=== PATIENT | male | born 1955 | race Caucasian/White ===

== ENCOUNTER 2022-05-17 23:15 | Inpatient (IN) | payer MEDICARE, SELFPAY ==
[2022-05-17 23:34] VITALS: BP 146/98; PULSE 102; RESP 16; TEMP 36.8; O2SAT 95
--- NOTE | 2022-05-17 23:41 | XRR_ITS ---
PROCEDURE INFORMATION: Exam: XR Right Foot Exam date and time: 05/18/2022 12:19 AM Age: 66 years old Clinical indication: Injury or trauma; Other: Deep lac to right heel; Wound; Without foreign body; Additional info: Open wound TECHNIQUE: Imaging protocol: Radiologic exam of the Right foot. Views: 1 or 2 views. COMPARISON: No relevant prior studies available. FINDINGS: Bones/joints: There is probable at least partial disruption of the Achilles tendon. Soft tissues: There is a prominent soft tissue laceration seen within the heel posteriorly. The laceration extends to the surface of the right os calcis. Calcific densities are seen in the soft tissues overlying the dorsal aspect of the os calcis. XR/XR foot RT 2V [id number] IMPRESSION: 1. A deep laceration extends to the posterior surface of the right os calcis. 2. There are calcific densities seen in the soft tissues the dorsal surface of the os calcis. 3. An injury to the insertion of the Achilles tendon cannot be excluded.
[2022-05-18] VITALS (14 sets, daily range): BP systolic 89–141; BP diastolic 58–84; PULSE 59–101; RESP 12–19; TEMP 36.4–37.5; O2SAT 96–100
[2022-05-18 00:11] LABS: Basophils # 0.1 10^3/uL (0.0-0.1); Basophils % 0.5 %; Eosinophils # 0.1 10^3/uL (0.0-0.8); Eosinophils % 0.7 %; Hematocrit 29.6 % (42.0-52.0); Hemoglobin 9.4 g/dL (11.7-16.6); Lymphocytes # 1.5 10^3/uL (0.8-4.8); Lymphocytes % 13.3 %; Mean Corpuscular HGB Conc 31.8 g/dL (30.0-36.0); Mean Corpuscular Hemoglobin 28.2 pg (28.0-34.0); Mean Corpuscular Volume 88.9 fl (80-94); Mean Platelet Volume 10.7 fL (7.4-10.4); Monocytes # 1.3 10^3/uL (0.2-0.9); Monocytes % 11.7 %; Neutrophils # 8.29 10^3/uL (1.8-7.7); Neutrophils % 73.4 %; Nucleated Red Blood Cells % 0 %; Platelet Count 272 10^3/cmm (130-400); Red Blood Count 3.33 10^6/uL (4.1-5.3); Red Cell Distribution Width 16.6 % (12.1-15.1); White Blood Count 11.3 10^3/uL (4.0-10.0)
[2022-05-18 00:26] LABS: INR 1.09 (0.8-1.2)
[2022-05-18 00:27] LABS: Partial Thromboplastin Time 24.9 SECONDS (23.9-36.7)
[2022-05-18 00:30] LABS: Lactate (Lactic Acid level) 3.3 mmol/L (0.5-2.2)
[2022-05-18 00:32] LABS: Alanine Aminotransferase 16 U/L (0-41); Albumin Level 2.7 g/dL (3.5-5.2); Alcohol Level 92 mg/dL (0-10); Alkaline Phosphatase 92 U/L (40-130); Anion Gap 16.6 (5-19); Aspartate Amino Transferase 22 U/L (0-40); Blood Urea Nitrogen 3 mg/dL (8-23); C Reactive Protein 3.4 mg/L (0.0-4.9); Calcium 8.4 mg/dL (8.5-10.5); Carbon Dioxide 19 mmol/L (22-29); Chloride 92 mmol/L (98-107); Glomerular Filtration Rate 166.4 mL/min (90-130); Glucose 94 mg/dL (65-115); Osmolality Calculated 254 mOsm/kg (285-295); Potassium 3.6 mmol/L (3.5-5.1); Sodium 124 mmol/L (136-145); Total Bilirubin 0.5 mg/dL (0.15-1.2); Total Protein 6.7 g/dL (6.6-8.7)
--- NOTE | 2022-05-18 01:58 | PM.HP ---
Providers/Chief Complaint Chief Complaint: Lower Extremity Injury History of Present Illness Jem Coffey is a 66 year old male with past medical history of hypertension, alcohol use, came in with chief complaint of foot pain. Started a month back, after he hurt his right foot while closing the recliner, he says that the foot got caught in it.After that he started developing swelling and pain which has since then significantly worsened, yesterday he was at urgent care clinic and was discharged from there on oral antibiotics, and wound care follow-up. Came to the ER today with worsening symptoms. Has denied any fever chills. Pertinent imaging studies: X-ray right foot:A deep laceration extends to the posterior surface of the right os calcis. There are calcific densities seen in the soft tissues the dorsal surface of the os calcis. An injury to the insertion of the Achilles tendon cannot be excluded. ? Review of Systems General: Reports: 10 or more systems reviewed and unremarkable except in HPI and below Card: Denies: palpitations, edema, swelling of feet/ankles, dyspnea on exertion, orthopnea or leg pain with exertion Resp: Denies: dyspnea, productive cough, wheezing or pain on inspiration GI: Denies: abdominal pain, nausea, vomiting, diarrhea or constipation : Denies: flank pain or difficulty urinating Musc: Reports: extremity pain; Denies: back pain or extremity swelling Neuro: Reports: difficulty walking; Denies: headache(s) or confusion Medications/Allergies Home Medications Medication Instructions Recorded Confirmed Last Taken Type levofloxacin 750 mg tablet 750 mg PO DAILY 10 days #10 tabs 05/16/22 05/16/22 Unknown Rx lisinopril 5 mg tablet 5 mg PO DAILY 05/16/22 05/16/22 Unknown History lovastatin 10 mg tablet 10 mg PO DAILY 05/16/22 05/16/22 Unknown History metoprolol tartrate 25 mg tablet 25 mg PO DAILY 05/16/22 05/16/22 Unknown History Allergies Allergy/AdvReac Type Severity Reaction Status Date / Time Sulfa (Sulfonamide Allergy Intermediate Unknown Verified 05/16/22 13:26 Antibiotics) PFSH Acute PFSH: Social History Smoking and tobacco status: current every day smoker Vitals/I&O/Wt Last Vital Signs Temp 98.2 F 05/17/22 23:34 Pulse 102 H 05/17/22 23:34 Resp 16 05/17/22 23:34 BP 119/84 05/18/22 00:00 Pulse Ox 95 05/17/22 23:34 O2 Del Method 05/17/22 23:34 Physical Exam Resp: COMMON NORMALS: normal respiratory effort, No retractions, No use of accessory muscles and clear to auscultation bilaterally EFFORT & INSPECTION: Yes symmetric chest movement AUSCULTATION: clear to auscultation bilaterally Cardio: COMMON NORMALS: regular rate, regular rhythm, S1 normal heart sound present, S2 normal heart sound present, No gallops present (Cardio), No murmurs present (Cardio), No rub (Cardio) and Peripheral pulses 2+ throughout RATE: regular rate RHYTHM: regular rhythm HEART SOUNDS: S1 normal heart sound present and S2 normal heart sound present PERIPHERAL PULSES: Peripheral pulses 2+ throughout GI: COMMON NORMALS: Normal to inspection, nondistended, normoactive bowel sounds present, Soft to palpation, non-tender, No hepatosplenomegaly present and no masses AUSCULTATION: Yes normoactive bowel sounds PALPATION: Yes Soft to palpation and Yes No hepatosplenomegaly present RECTAL EXAM: Yes deferred Extremity: COMMON NORMALS: no clubbing, cyanosis or edema and no pedal edema NARRATIVE EXTREMITY EXAM: rt foot wound Neuro: COMMON NORMALS: patient oriented x3 Data : 05/17/22 23:55 05/17/22 23:55 A&P Assessment and plan (1) Wound of right foot: (2) Hypertension: Plan 66 year old male with past medical history of hypertension, alcohol use, came in with chief complaint of foot pain Started a month back, after he hurt his right foot while closing the recliner, he says that the foot got caught in it. After that he started developing swelling and pain which has since then significantly worsened. Assessment: Right foot wound Hypertension Plan: Follow blood culture ESR CRP Currently on broad-spectrum antibiotics (Vanco and Zosyn) Pain control Orthopedic has been consulted by ER, currently n.p.o. for possible intervention. Attestations Medical Necessity Statement*: Patient needs to be in hospital for management right foot wound, need for IV antibiotics. Anticipated length of stay greater than 2 midnights. Time Spent in Patient Care: Greater than 35 minutes (>than 50% of time spent in counselling and/or direct pt care on unit). Coding Level of Care Code Acute [employer] Feeder for Surjitg Fwd Exam Detailed Diagnoses Wound of right foot S91.301A Hypertension I10
[2022-05-18 02:28] LABS: C Reactive Protein 3.4 mg/L (0.0-4.9)
[2022-05-18 02:32] LABS: Erythrocyte Sedimentation Rate 30 mm/hr (0-10)
[2022-05-18] MEDS: vancomycin 1,250 MG/250 ML PIGGYBACK 250 MG IV ×3 (02:47→18:00)
--- NOTE | 2022-05-18 04:13 | W.ED.EXTPRO ---
HPI - Extremity Problem General: Chief complaint: Extremity Injury, Lower Stated complaint: Lower Extremity Injury Source: patient and EMS History of Present Illness: 66-year-old male gentleman who states that he cut his right heel on a recliner closing mechanism last week. The laceration remained open. He became worried about it, so yesterday he was seen in urgent care. And wound care appointment was made for him in 2 days. He was prescribed antibiotics, as they cannot close the wound due to the nature of it being open for a week. He says that he was on his feet quite a bit today, going to get his antibiotic prescription filled, etc. The wound suddenly opened more while weightbearing. It became more painful. It began to bleed. It bled so much, that he had clot covering the mat in the floorboard of his truck that was significantly thick. Ambulance was called. He presents with continued oozing of the wound. He is intoxicated as well. MD Complaint: extremity pain, extremity swelling and other Onset (ago): hour(s) Pain Consistency: constant Location: right and other (Foot) Quality: constant Radiation: none Relieving factors: immobilization Exacerbating factors: nothing Associated symptoms: Deny chest pain or fever(s) Review of Systems Const: Denies: fever(s) Card: Denies: chest pain or palpitations Resp: Denies: dyspnea GI: Reports: nausea; Denies: abdominal pain or vomiting Musc: Reports: extremity pain; Denies: neck pain Skin/Breast: Reports: other [facility] ED PFSH: Social History Smoking and tobacco status: current every day smoker Physical Exam Const: COMMON NORMALS: alert GENERAL APPEARANCE: cooperative and frail appearing HENMT: COMMON NORMALS: normocephalic, atraumatic and Normal external nose present HEAD & SCALP: normocephalic and atraumatic FACE & SINUS: normal facial exam and face symmetric NOSE: Normal external nose present Eye: COMMON NORMALS: Equal, round and reactive pupils present and EOMs intact bilaterally PUPIL: Yes Equal, round and reactive pupils present Neck/C-Spine: COMMON NORMALS: full ROM GENERAL: Yes trachea midline Chest: CHEST: Yes Symmetrical chest wall rise Resp: COMMON NORMALS: normal respiratory effort, No use of accessory muscles and clear to auscultation bilaterally AUSCULTATION: clear to auscultation bilaterally Cardio: COMMON NORMALS: regular rate and regular rhythm RATE: regular rate RHYTHM: regular rhythm GI: COMMON NORMALS: Normal to inspection, nondistended, normoactive bowel sounds present Extremity: NARRATIVE EXTREMITY EXAM: Examination of the right lower extremity reveals an open wound over the right hindfoot/Achilles insertional area. There is clot in the wound. It continues to ooze blood. There appears to be exposed tendon present. Encinas test is negative. Capillary refill appears intact. Neuro: TA COMA SCALE: document GCS findings Ta coma scale eye opening: Spontaneous Ta coma scale verbal response: Orientated [place] coma scale motor response: Obey commands Ta coma scale total score: 15 SENSORIUM/ORIENTATION: Yes alert Psych: COMMON NORMALS: cooperative SPEECH: Yes slurred Course Vital Signs: Vital signs: Vital Signs Temperature 98.2 F 05/17/22 23:34 Pulse Rate 100 05/18/22 03:57 Respiratory Rate 16 05/17/22 23:34 Blood Pressure 119/84 05/18/22 00:00 Pulse Oximetry 96 05/18/22 03:57 Oxygen Delivery Me thod 05/18/22 03:57 MDM - Extremity (Nontraumatic) Medical Decision Making This patient essentially has an avulsion of the calcaneus at the Achilles insertion that is an open wound at this point. This patient has had significant bleeding, with a current hemoglobin of 9.4. He is hyponatremic as well. He is mildly intoxicated. He has a history of anticoagulation, although type is not clear. Consulted with orthopedics. Tentative plan is to clean wound which she has been done. Control bleeding which has been done. The wound is washed copiously with saline and a bit of peroxide packed with a wet-to-dry dressing, placed in a posterior splint in equinus, and reevaluate later in the morning. Will likely need washout surgery with potential Achilles repair at that point. He will be made NPO. Hospitalist is aware and has seen the patient in the ER. Orthopedics will see later this morning Lab Data : 05/17/22 23:55 05/17/22 23:55 Radiology Impressions Foot X-Ray 05/17/22 23:41 IMPRESSION: 1. A deep laceration extends to the posterior surface of the right os calcis. 2. There are calcific densities seen in the soft tissues the dorsal surface of the os calcis. 3. An injury to the insertion of the Achilles tendon cannot be excluded. Laboratory Results WBC 11.3 10^3/uL (4.0-10.0) H 05/17/22 23:55 RBC 3.33 10^6/uL (4.1-5.3) L 05/17/22 23:55 Hgb 9.4 g/dL (11.7-16.6) L 05/17/22 23:55 Hct 29.6 % (42.0-52.0) L 05/17/22 23:55 MCV 88.9 fl (80-94) 05/17/22 23:55 MCH 28.2 pg (28.0-34.0) 05/17/22 23:55 MCHC 31.8 g/dL (30.0-36.0) 05/17/22 23:55 RDW 16.6 % (12.1-15.1) H 05/17/22 23:55 Plt Count 272 10^3/cmm (130-400) 05/17/22 23:55 MPV 10.7 fL (7.4-10.4) H 05/17/22 23:55 Neut % (Auto) 73.4 % 05/17/22 23:55 Lymph % (Auto) 13.3 % 05/17/22 23:55 [place] % (Auto) 11.7 % 05/17/22 23:55 Eos % (Auto) 0.7 % 05/17/22 23:55 Baso % (Auto) 0.5 % 05/17/22 23:55 Neut # (Auto) 8.29 10^3/uL (1.8-7.7) H 05/17/22 23:55 Lymph # (Auto) 1.5 10^3/uL (0.8-4.8) 05/17/22 23:55 [place] # (Auto) 1.3 10^3/uL (0.2-0.9) H 05/17/22 23:55 Eos # (Auto) 0.1 10^3/uL (0.0-0.8) 05/17/22 23:55 Baso # (Auto) 0.1 10^3/uL (0.0-0.1) 05/17/22 23:55 Nucleated RBC % (auto) 0 % 05/17/22 23:55 Nucleated RBCs # 0.0 /100WBC 05/17/22 23:55 ESR 30 mm/hr (0-10) H 05/17/22 23:50 PT 14.40 SECONDS (12.1-14.9) 05/17/22 23:55 INR 1.09 (0.8-1.2) 05/17/22 23:55 APTT 24.9 SECONDS (23.9-36.7) 05/17/22 23:55 Sodium 124 mmol/L (136-145) L 05/17/22 23:55 Potassium 3.6 mmol/L (3.5-5.1) 05/17/22 23:55 Chloride 92 mmol/L (98-107) L 05/17/22 23:55 Carbon Dioxide 19 mmol/L (22-29) L 05/17/22 23:55 Anion Gap 16.6 (5-19) 05/17/22 23:55 BUN 3 mg/dL (8-23) L 05/17/22 23:55 Creatinine 0.5 mg/dL (0.7-1.2) L 05/17/22 23:55 GFR Calculation 166.4 mL/min (90-130) H 05/17/22 23:55 Glucose 94 mg/dL (65-115) 05/17/22 23:55 Calculated Osmolality 254 mOsm/kg (285-295) L 05/17/22 23:55 Lactate 3.3 mmol/L (0.5-2.2) H 05/17/22 23:55 Calcium 8.4 mg/dL (8.5-10.5) L 05/17/22 23:55 Total Bilirubin 0.5 mg/dL (0.15-1.2) 05/17/22 23:55 AST 22 U/L (0-40) 05/17/22 23:55 ALT 16 U/L (0-41) 05/17/22 23:55 Alkaline Phosphatase 92 U/L (40-130) 05/17/22 23:55 C-Reactive Protein 3.4 mg/L (0.0-4.9) 05/17/22 23:55 Total Protein 6.7 g/dL (6.6-8.7) 05/17/22 23:55 Albumin 2.7 g/dL (3.5-5.2) L 05/17/22 23:55 Globulin 4.0 g/dL (1.3-4.6) 05/17/22 23:55 Ethyl Alcohol 92 mg/dL (0-10) H 05/17/22 23:55 Discharge Plan Discharge Patient Disposition: Admitted As Inpatient Admit Provider: Chang Spencer Clinical Impression: Wound of right foot Condition: Stable Coding Level of Care Code ED Orchestra Musician for Josias Mcclellan
[2022-05-18] MEDS: sodium chloride 0.9% 1,000 ML 100 ML IV ×3 (04:26→20:40)
[2022-05-18] MEDS: piperacillin-tazobactam 3.375 GM in sodium chloride 0.9% (plus) 50 ML IV ×3 (04:27→20:41)
--- NOTE | 2022-05-18 08:24 | P.ANESASSM_ITS ---
Pre-Anesthetic Assessment Height/Weight: Height 1.85 m Weight 86.183 kg Temp Pulse Resp BP Pulse Ox O2 Del Method 99.5 F 99 18 135/79 96 05/18/22 08:10 05/18/22 08:10 05/18/22 08:10 05/18/22 08:10 05/18/22 08:10 05/18/22 08:10 Operation Date: 05/18/22 10:10 Proposed Procedures p Incision & Drainage Lower Extremity(Right) - Camilo Simpson, DO Familial anesthetic complications: none Was Beta Chad taken within 24 hours: Yes Was Clonidine taken within 24 hours: N/A Last intake: Intake Last Liquid Date 05/17/22 Last Liquid Time 20:00 Last Solid Date 05/17/22 Last Solid Time 18:00 Social No alcohol and No tobacco Exam alert, oriented x 3, clear to auscultation bilaterally and regular rate & rhythm Airway Submandibular: within normal limits Cervical ROM: within normal limits Mallampati: Class II Dentition: chipped Comments: Comments: Poor dentition CV/HEM Anemia and Hypertension Metabolic Hyperlipidemia chronic ETOH, hyponatremia Neuropsych Cerebrovascular Accident Anesthetic Plan ASA status: 3 Anesthesia: General Medications/Allergies Home Medications Medication Instructions Recorded Confirmed Last Taken Type levofloxacin 750 mg tablet 750 mg PO DAILY 10 days #10 tabs 05/16/22 05/16/22 Unknown Rx lisinopril 5 mg tablet 5 mg PO DAILY 05/16/22 05/16/22 Unknown History lovastatin 10 mg tablet 10 mg PO DAILY 05/16/22 05/16/22 Unknown History metoprolol tartrate 25 mg tablet 25 mg PO DAILY 05/16/22 05/16/22 Unknown History Allergies Allergy/AdvReac Type Severity Reaction Status Date / Time Sulfa (Sulfonamide Allergy Intermediate Unknown Verified 05/16/22 13:26 Antibiotics) Current Medications Generic Name Dose Route Start Last Admin Trade Name Freq PRN Reason Stop Dose Admin Sodium Chloride 1,000 mls @ 100 mls/hr 05/18/22 02:00 05/18/22 04:26 Sodium Chloride 0.9% IV 100 mls/hr .Q10H LIZETH Administration Piperacillin Sod/Tazobactam 50 mls @ 12.5 mls/hr 05/18/22 04:00 05/18/22 08:12 Sod 3.375 gm/ Sodium Chloride IV Infused Q8H LIZETH Infusion Protocol Vancomycin/PEG/NADA/Lysine/Water 1,250 mg in 250 mls @ 250 mls/hr 05/18/22 02:45 05/18/22 02:47 Vancocin IV 250 mls/hr Q8H LIZETH Administration PFSH Anesthesia Social History Smoking and tobacco status: current every day smoker Data Anesthesia : 05/17/22 23:55 05/17/22 23:55 Short CBC 05/17/22 Range/Units 23:55 WBC 11.3 H (4.0-10.0) 10^3/uL Hgb 9.4 L (11.7-16.6) g/dL Hct 29.6 L (42.0-52.0) % MCV 88.9 (80-94) fl Plt Count 272 (130-400) 10^3/cmm Neut % (Auto) 73.4 % Neut # (Auto) 8.29 H (1.8-7.7) 10^3/uL BMP 05/17/22 23:55 Sodium 124 L Potassium 3.6 Chloride 92 L Carbon Dioxide 19 L BUN 3 L Creatinine 0.5 L Glucose 94 Calcium 8.4 L Liver Function 05/17/22 Range/Units 23:55 Total Bilirubin 0.5 (0.15-1.2) mg/dL AST 22 (0-40) U/L ALT 16 (0-41) U/L Alkaline Phosphatase 92 (40-130) U/L Albumin 2.7 L (3.5-5.2) g/dL Coags 05/17/22 05/17/22 05/17/22 23:50 23:50 23:55 ESR 30 H PT 14.40 INR 1.09 APTT 24.9 C-Reactive Protein 3.4 05/17/22 23:55 ESR PT INR APTT C-Reactive Protein 3.4 Microbiology 05/18/22 02:45 Blood Culture - Preliminary Blood SPECIMEN COLLECTED 05/18/22 02:40 Blood Culture - Preliminary Blood SPECIMEN COLLECTED Cardiac Studies: No Data to Display
--- NOTE | 2022-05-18 08:26 | PM.CONSULT ---
Providers/Reason For Consult Consulting Physician/Specialty*: Camilo Bella DO/orthopedic surgery Reason for Consult*: Right heel and Achilles tendon laceration Requesting Physician: Dr. Fernandez Attending Physician: Chang Spencer MD History of Present Illness History of Present Illness Jme Coffey is a 66 year old male who presented to the emergency department overnight with complaint of right heel wound and concern for Achilles rupture. Further history reveals patient sustained a laceration to his heel back roughly 4 to 6 weeks ago he states he is done nothing for it. He thought it would heal on its own. He states at that point time you has been mobilizing. He states just yesterday he was walking in and felt his whole wound open up and lost his ability to plantarflex. In the emergency department he was seen evaluated open wound and noted to have an Achilles laceration/avulsion at the insertion site with a large open wound at the calcaneus. He was initially seen on 05/16/2022 at urgent care where he was seen evaluated referred to wound care and started on antibiotics. Patient denies any fevers chills chest pain shortness of breath nausea or vomiting. Patient denies smoking history or history of diabetes mellitus. Review of Systems General: Reports: 10 or more systems reviewed and unremarkable except in HPI and below Const: Denies: fever(s) or chills Card: Denies: chest pain Resp: Denies: dyspnea GI: Denies: abdominal pain, nausea or vomiting Musc: Reports: extremity pain and extremity swelling Neuro: Reports: numbness in extremities (At the heel pad) Medications/Allergies Home Medications Medication Instructions Recorded Confirmed Last Taken Type levofloxacin 750 mg tablet 750 mg PO DAILY 10 days #10 tabs 05/16/22 05/16/22 Unknown Rx lisinopril 5 mg tablet 5 mg PO DAILY 05/16/22 05/16/22 Unknown History lovastatin 10 mg tablet 10 mg PO DAILY 05/16/22 05/16/22 Unknown History metoprolol tartrate 25 mg tablet 25 mg PO DAILY 05/16/22 05/16/22 Unknown History Allergies Allergy/AdvReac Type Severity Reaction Status Date / Time Sulfa (Sulfonamide Allergy Intermediate Unknown Verified 05/16/22 13:26 Antibiotics) Current Medications Generic Name Dose Route Start Last Admin Trade Name Freq PRN Reason Stop Dose Admin Sodium Chloride 1,000 mls @ 100 mls/hr 05/18/22 02:00 05/18/22 04:26 Sodium Chloride 0.9% IV 100 mls/hr .Q10H LIZETH Administration Piperacillin Sod/Tazobactam 50 mls @ 12.5 mls/hr 05/18/22 04:00 05/18/22 08:12 Sod 3.375 gm/ Sodium Chloride IV Infused Q8H LIZETH Infusion Protocol Vancomycin/PEG/NADA/Lysine/Water 1,250 mg in 250 mls @ 250 mls/hr 05/18/22 02:45 05/18/22 02:47 Vancocin IV 250 mls/hr Q8H LIZETH Administration PFSH Acute PFSH: Medical History (Updated 05/18/22 @ 08:40 by Camilo Bella DO) Laceration of right Achilles tendon Social History Smoking and tobacco status: current every day smoker Vitals/I&O/Wt Last Vital Signs Temp 99.5 F 05/18/22 08:10 Pulse 99 05/18/22 08:10 Resp 18 05/18/22 08:10 BP 135/79 05/18/22 08:10 Pulse Ox 96 05/18/22 08:10 O2 Del Method 05/18/22 08:10 05/17/22 05/18/22 05/18/22 22:59 06:59 14:59 Intake Total 50 / 50 Balance 50 / 50 Weight last 48 hrs Weight 190 lb Physical Exam Narrative: Orthopedic examination: Examination patient's right lower extremity demonstrates posterior splint on in place. Dressing subsequently taken down and wound inspected. Patient has a large laceration transversely wrapping around the superior anterior aspect of the calcaneus. The wound appears to be more chronic with acute changes some of the wound bed has rounded edges. With granulating tissue. No active bleeding noted. Excessive amount of hematoma noted. Direct visualization of the calcaneus is noted. Patient has decreased sensation at the heel. SPN DPN tibial and saphenous nerve distributions appear to be intact. Distal pulses of the posterior tib and DP are palpable. Toes are warm and well-perfused. He does have noticeable edema distally at the foot secondary to compressive Roberto wrap of the wound. Patient is able to dorsiflex ankle unable to actively plantarflex. Positive Encinas sign. No tenderness to palpation proximally at the tibia of the knee or the hip. Const: COMMON NORMALS: no acute distress HENMT: COMMON NORMALS: normocephalic and atraumatic HEAD & SCALP: normocephalic and atraumatic Resp: COMMON NORMALS: normal respiratory effort Cardio: COMMON NORMALS: Peripheral pulses 2+ throughout PERIPHERAL PULSES: Peripheral pulses 2+ throughout Data : 05/17/22 23:55 05/17/22 23:55 Micro: Microbiology 05/18/22 02:45 Blood Culture - Preliminary Blood SPECIMEN COLLECTED 05/18/22 02:40 Blood Culture - Preliminary Blood SPECIMEN COLLECTED Xray Ortho: My impression: Large soft tissue laceration defect noted at the posterior aspect of the ankle at the superior pole of the calcaneus. There does appear to be an avulsion of the Achilles tendon at its insertion. Open wound directly to calcaneus noted. Mild lucency appreciated at the tuberosity of the calcaneus. A&P Assessment and plan (1) Wound of right foot: (2) Laceration of right Achilles tendon: Plan MDM: Jem dumont is a pleasant 66-year-old gentleman who sustained a laceration to his calcaneus/posterior heel roughly 4 to 6 weeks ago. States he try to let this heal on its own he has been continued to ambulate and is noted just yesterday that he felt his heel give out and his wound opened up. He was seen originally on 05/16/2022 and diagnosed with a right heel wound was referred to wound care and given levofloxacin for p.o. antibiotics. I was consulted as orthopedics for evaluation given the extensiveness of the wound as well as concern for Achilles involvement. On my evaluation patient has a very contaminated right posterior heel wound with large laceration with noted avulsion at the insertion of the Achilles tendon. Had detailed discussion with patient about my physical exam as well as radiographic findings. Nonacute scenario would ideally be able to perform Achilles tendon repair urgently. However given the nature of the chronic wound being open and exposed for over a month and the wound bed looking contaminated would recommend this be treated in a staged fashion. We will take patient back to the OR urgently this morning for an I&D to the right heel. This point time we can further assess the extent of the injury and laceration and I suspect we will be able to close some of the wound but likely need to utilize a wound VAC in order to help debride and make this a healthy wound bed for later Achilles tendon repair/reconstruction with likely [facility] transfer. Patient understands that he has a very severe injury with a relatively poor prognosis given his delayed presentation and large soft tissue defect. This point time we will do everything possible to prevent any type of infection start off with a staged approach at I&D with likely serial VAC changes and then hopefully once wound bed is clean can perform the Achilles repair/reconstruction with likely [facility] transfer at a later time. Patient understands and agrees with current plan. All questions answered. He understands the risks include make it better, make it worse injury to nerves or vessels, permanent dysfunction of the right lower extremity with weakness of plantarflexion, possible further surgery as well as worsening infection and wound dehiscence ultimately leading to possible amputation. He understands these risks and agreed to proceed with surgical intervention. N.p.o. Internal medicine admitted as primary Antibiotics IV Obtain consent Posterior splint with wet-to-dry dressing Elevate and ice right lower extremity Plan for OR today for right heel wound irrigation and debridement with possible wound VAC placement. Consult Attestations Medical Necessity Statement: Patient has a complex acute on subacute right heel laceration with Achilles tendon rupture. This required hospitalization for surgical I&D. Coding Level of Care Code Acute [employer] Technical Officer for Josias Mcclellan Diagnoses Wound of right foot S91.301A Laceration of right Achilles tendon S86.021A Time Spent (min) 65
--- NOTE | 2022-05-18 08:48 | W.PM.OPSUD ---
Surgery/Procedure H&P Update DATE OF PROCEDURE: May 18, 2022 DATE H&P PERFORMED: 05/18/22 CHANGES TO PREVIOUS DOCUMENTATION: None PREOP DIAGNOSIS: Right heel wound laceration with Achilles tendon rupture PRIMARY INDICATION FOR PROCEDURE: Right heel wound laceration with Achilles tendon rupture PLANNED PROCEDURE: Operation Date: 05/18/22 10:10 Proposed Procedures p Incision & Drainage Lower Extremity(Right) - Camilo Bella DO
--- NOTE | 2022-05-18 10:59 | PM.OP2 ---
Brief Operative Note Date of procedure: 05/18/22 Pre-op diagnosis: Right heel laceration wound acute on subacute with Achilles rupture Post-op diagnosis: same Procedure Done: Right heel irrigation and debridement Bone cultures taken Right heel wound VAC placement Anterior plantar flexion splint applied short leg Surgeon: Camilo Bella Estimated blood loss (mL): 75 Complications: None Post-op Plan: Patient recover in PACU. Patient will return to the floor. Continue empiric antibiotics. We will monitor bone cultures. Wound VAC in place for the posterior aspect given the chronicity of the wound. This point time we will have patient go back to surgery for a repeat washout and wound evaluation on Thursday. Patient may have a diet today. Should be nonweightbearing to the right lower extremity. Maintain wound VAC until next surgery. Pain control. Condition: stable Disposition: floor Coding Level of Care Code Acute Instrument Repair Technician for Josias Mcclellan
--- NOTE | 2022-05-18 11:03 | PM.PACU ---
PACU note Narrative: Patient recovering well in PACU. Wound VAC on in place with good seal. Anterior short leg splint on in place to prevent dorsiflexion of the foot. Patient's toes are warm well-perfused has brisk capillary refill less than 2 seconds unable to palpate patient's pulses secondary to dressing and splint. Still sedated from anesthesia and unable to follow commands for sensor or motor assessment. Exam: somnolent, arousable (See narrative for detailed exam) Disposition: back to floor
--- NOTE | 2022-05-18 11:04 | P.OP_ITS ---
Operative Report Date of procedure: May 18, 2022 Pre-op diagnosis: Preop Diagnosis Right heel wound laceration with Achilles tendon rupture Post-op diagnosis: Right heel wound laceration acute on subacute with Achilles tendon rupture Procedure done: Right heel irrigation and debridement(wound 15 cm x 3 cm x 2 cm) Obtain bone cultures and sent for microbiology Application of wound VAC Short leg anterior plantar flexion splint applied Implants: None Specimens removed/disposition: Posterior tuberosity calcaneus bone was harvested for bone cultures Surgeon: Camilo Bella DO Estimated blood loss: 75 mL 59 IV fluids: See anesthesia record Complications: None Findings: See operative report narrative Condition: stable Disposition: floor Brief History: Patient present emergency department overnight acute on subacute wound of his right heel. Patient states that roughly 4 to 6 weeks ago he had caused a laceration to his right heel while in a recliner. He neglected to have this seen or treated he does not think this was that involved and roughly thought this would heal on its own. He is continued to ambulate. And it just on 05/16/2022 was seen and evaluated by urgent care was given antibiotics and referred to wound care. At this point time he continued to ambulate and just last night he felt his ankle give out and brought to the emergency department. He was found to have Achilles rupture/avulsion directly off of its insertion with opening of his posterior heel wound. He was subsequent admitted by hospitalist started on empiric antibiotics given the chronicity of the wound. She is placed in a wet-to-dry dressing and a splint and orthopedic surgery team consulted. 11 saw and evaluated patient he has an excessively large and appears to be contaminated wound with definitely chronic granulation tissue noted. At this point time I do not feel this should be acutely repaired and should be more of a staged procedure. A detailed discussion with the patient about my recommendations which at this point time would be for a right heel I&D with possible closure and I suspect utilization of the wound VAC. He understands this might require multiple debridements before or able to focus on repairing his Achilles tendon is worried about putting an implants within a contaminated wound bed. This point time he understands and agrees to proceed with current plan. All questions answered. He understands risk benefits complications alternatives surgical and nonsurgical treatment options this point agrees to proceed with surgery. All questions answered. Procedure: Patient was seen evaluated in preoperative holding area. He was evaluated by the preoperative and anesthesia team. Once he was medically optimized for surgery was then taken back to the operative suite he underwent general anesthesia per the anesthesia department on the hospital bed and once appropriately anesthetized he was then flipped into a prone position all bony prominences were well-padded patient was appropriately secured to the table. This point time nonsterile tourniquet applied to the right thigh. Right lower extremity was then prepped and draped in standard orthopedic fashion utilizing Betadine given the open wound. Final timeout performed. Patient received appropriate preoperative antibiotics and was receiving antibiotics on the floor. Esmarch tourniquet was used exsanguinate the extremity and tourniquet was inflated to 300 mmHg. I began by thorough inspection of the wound bed which extended from 15 cm x 3 centimeters by 2 cm this spanned the posterior aspect of his calcaneus wrapping from medial to lateral. No eugene purulence was noted about the wound bed just significant amounts of hematoma. The wound laterally had some fibrinous slough but no eugene purulence or pockets of pus noted. At this standpoint I then utilized a combination of curette sharp scalpel excision as well as rongeur to debride this wound bed of skin subcutaneous tissue fascia tendon and bone. I debrided the entire wound bed to stable healthy margins of healthy bleeding tissue. I maintained hemostasis with electrocautery. This point time identified the avulsion of the Achilles tendon off of the insertion site there was a small area of soft bone at the superior tuberosity I utilized a small rongeur to harvest bone for bone cultures and this was sent for micro/pathology. Next I then spent time identifying the Achilles tendon which had just small amounts of the avulsed bone from the calcaneus attached. This was appropriately debrided. I did identify a branch of the sural nerve laterally which was completely severed no distal end was noted. At this point I performed a traction neurectomy of the sural nerve branch. I then utilized hemostats to mobilize the tendon which I did have reasonably good excursion which I would potentially be able with plantarflexion to attach this. At this point time I then thoroughly irrigated the wound bed with 9 L of normal saline with gravity cystoscopy tubing. At this point time the debridement and irrigation was complete and the wound bed appeared very stable. The medial and lateral edges of the laceration appeared that they would mobilize well for approximation. I utilized interrupted vertical mattress 2-0 nylon suture to reapproximate the wound bed medially and laterally. This left just a small opening which at this point time could potentially be closed but due to the nature of the wound bed I felt appropriate to place a VAC sponge in stage a second washout just to evaluate how the wound bed is responding to debridement as well as antibiotics. At that point time I then cut a small black foam sponge placed this deep within the central aspect of the wound with care to not place this over any neurovascular structures. Once black foam sponge in place I then prepped the incision with ChloraPrep and then placed a standard wound VAC which had excellent suction and seal along the posterior aspect of the heel laceration. The foot was held in plantarflexion throughout the remainder of the case of closure and wound VAC placement I then well-padded the heel with 4 x 4's ABDs soft roll and applied a short leg anterior dorsiflexion blocking splint to protect the incision closure. Tourniquet was then deflated hemostasis was found to be satisfactory. Patient's wound VAC was then hooked to the hospital wound VAC machine. This had good seal. Patient was then awakened from anesthesia transported safely onto the hospital bed and taken to PACU in stable condition. Disposition: Patient taken to PACU in stable condition. Will recover in PACU an d returned to the floor. Patient has wound VAC on in place we will leave this on until repeat surgery which will occur on Thursday for a second look I&D with possible primary closure. We will continue to monitor patient's bone cultures. Continue with IV antibiotics DVT prophylaxis and pain control. Patient be nonweightbearing to right lower extremity maintain splint until further recommendations.
--- NOTE | 2022-05-18 11:44 | PM.MISC ---
Miscellaneous Note Note: Patient was taken to the OR for debridement. He is status post debridement at this time. Continue IV antibiotics for now. Continue management as per history physical document.
[2022-05-18] MEDS: metoprolol tartrate 25 mg Tablet PO (17:16)
[2022-05-18] MEDS: folic acid 1 mg Tablet PO (17:16)
[2022-05-18] MEDS: thiamine 100 mg Tablet PO (17:26)
[2022-05-18] MEDS: enoxaparin 40 mg/0.4 mL Syringe SUBCUT (22:53)
[2022-05-19] VITALS (11 sets, daily range): BP systolic 106–144; BP diastolic 67–86; PULSE 60–92; RESP 12–20; TEMP 36.4–36.9; O2SAT 94–100
[2022-05-19 02:18] LABS: Basophils % 0.1 %; Hematocrit 22.8 % (42.0-52.0); Lymphocytes # 0.6 10^3/uL (0.8-4.8); Lymphocytes % 5.8 %; Mean Corpuscular HGB Conc 30.7 g/dL (30.0-36.0); Mean Corpuscular Hemoglobin 28.6 pg (28.0-34.0); Mean Corpuscular Volume 93.1 fl (80-94); Mean Platelet Volume 10.6 fL (7.4-10.4); Monocytes # 0.7 10^3/uL (0.2-0.9); Monocytes % 7.2 %; Neutrophils # 8.36 10^3/uL (1.8-7.7); Neutrophils % 86.4 %; Nucleated Red Blood Cells % 0 %; Platelet Count 228 10^3/cmm (130-400); Red Blood Count 2.45 10^6/uL (4.1-5.3); White Blood Count 9.7 10^3/uL (4.0-10.0)
[2022-05-19 02:37] LABS: Vancomycin Trough 20.9 ug/mL (10-15)
[2022-05-19 02:38] LABS: Anion Gap 12.8 (5-19); Blood Urea Nitrogen 8 mg/dL (8-23); Carbon Dioxide 21 mmol/L (22-29); Chloride 98 mmol/L (98-107); Glomerular Filtration Rate 134.8 mL/min (90-130); Glucose 139 mg/dL (65-115); Osmolality Calculated 267 mOsm/kg (285-295); Potassium 3.8 mmol/L (3.5-5.1); Sodium 128 mmol/L (136-145)
[2022-05-19] MEDS: piperacillin-tazobactam 3.375 GM in sodium chloride 0.9% (plus) 50 ML IV ×3 (03:23→19:58)
[2022-05-19] MEDS: vancomycin 1,000 MG in sodium chloride 0.9% 250 ML 250 MG IV ×3 (03:24→19:53)
[2022-05-19] MEDS: sodium chloride 0.9% 1,000 ML 100 ML IV ×2 (09:48→19:51)
[2022-05-19] MEDS: metoprolol tartrate 25 mg Tablet PO (09:49)
[2022-05-19] MEDS: folic acid 1 mg Tablet PO (09:49)
[2022-05-19] MEDS: thiamine 100 mg Tablet PO (09:49)
[2022-05-19] MEDS: pantoprazole 40 mg SDV IVP ×2 (10:01→21:34)
--- NOTE | 2022-05-19 10:14 | P.PN_ITS ---
Subjective Subjective: Patient seen and examined this morning. Patient's wound VAC on in place with minimal bloody output. Patient resting comfortably. Splint on and in place. Dressing clean dry and intact. Patient updated about the intraoperative findings. No eugene purulence was appreciated there was a small area of soft bone that was bone cultures were then taken intraoperatively and sent for micro. The tendon was mobile. However given the chronicity of his wound I felt appropriate to close the sides of the wound that were well approximating hold off on any Achilles tendon repair as this is most severely important that we heal patient's soft tissue envelope given the open nature of this wound. I worry about putting any sutures or anchors in the wound bed given the duration of time and its been open. Talked in detail with the patient about this and ultimately at this point it feel appropriate that we treat patient and cleared him of any potential for infection we will take him back for surgery t his Thursday for repeat I&D possible VAC possible primary closure. This point time I think it is in patient's best interest that we heal this wound and then we can discuss later Achilles tendon repair or reconstruction at a later date once his incisions heal and wear it for sure we have no infection. Patient is very understanding of this and at this point time we will plan for the surgery on Thursday. In the meantime no weightbearing to the right lower extremity maintain VAC and splint. Vitals/I&O/Wt Last Vital Signs Temp 98.5 F 05/19/22 08:00 Pulse 74 05/19/22 08:00 Resp 12 05/19/22 08:00 BP 144/77 05/19/22 08:00 Pulse Ox 100 05/19/22 08:00 O2 Del Method 05/18/22 20:00 05/18/22 05/19/22 05/19/22 22:59 06:59 14:59 Intake Total 910.000 / 3720.000 50 / 3770.000 1000 / 1000 Output Total 250 / 325 100 / 425 300 / 300 Balance 660.000 / 3395.000 -50 / 3345.000 700 / 700 Weight last 48 hrs Weight 190 lb Physical Exam Narrative: Examination limited to the right lower extremity secondary to splint. Toes warm well perfused. He is able to wiggle toes and does not a sensation intact of the toes. Wound VAC dressing on in place with appropriate suction and seal only minimal bloody output noted in the canister. Data : 05/19/22 01:19 05/19/22 01:19 Micro: Microbiology 05/18/22 02:45 Blood Culture - Preliminary Blood NEGATIVE TO DATE 05/18/22 02:40 Blood Culture - Preliminary Blood NEGATIVE TO DATE A&P Assessment and plan (1) Laceration of right Achilles tendon: (2) Wound of right foot: Plan Nonweightbearing right lower extremity Maintain splint and keep clean dry and intact PT/OT Continue empiric antibiotics Follow intraoperative bone cultures Maintain wound VAC Plan for OR for repeat washout and possible primary closure right heel wound on Thursday. Attestations Medical Necessity Statement*: Patient had chronic wound to right heel with subsequent Achilles tendon avulsion. Requiring I&D of the right heel requiring hospitalization for surgery and antibiotics. Coding Level of Care Code Acute Emblem Drawer In for Josias Mcclellan Diagnoses Laceration of right Achilles tendon S86.021A Wound of right foot S91.301A Time Spent (min) 20
[2022-05-19 11:16] LABS: Thyroid Stimulating Hormone 1.11 uIU/mL (0.27-4.20)
--- NOTE | 2022-05-19 11:21 | PC.OT ---
OT EVALUATION HELD AT THIS TIME PATIENT HGB IS 7
[2022-05-19 11:24] LABS: Folate Level 18.8 ng/mL (4.5-32.2)
[2022-05-19 12:01] LABS: Iron 17 ug/dL (59-158); Percent Saturation 8.9 % (20-50); Total Iron Binding Capacity 190 mcg/dl; Unsaturated Iron Binding 173 ug/dL (112-347)
[2022-05-19 12:16] LABS: Vitamin B12 874 pg/mL (232-1245)
--- NOTE | 2022-05-19 12:23 | PC.CHAP ---
Pastoral Care Encounter/Spiritual Assessment Type of Contact [] Declined casing machine operator visit [] Patient/Family/Request visit [] Outpatient visit [] Follow-up visit [] Physician referral [] Code/Alert [x] Routine visit [] Staff referral [] Actively dying [] Patient sleeping [] Family support [] [] Out of room [] Palliative care [] [] Receiving care in room [] Pre-surgical visit [] Trauma [] Long length of stay [] ICU visit [] Other: Relational/Emotional Strength [x] Patient feels connected with others/family/visitors/staff [] Distress [] Loneliness/isolation [] Abandonment Spirituality of Patient [x] Person of [place] [x] Attends Jehovah[employer] Witness of their [place] [x] Believes in Prayer [] Reads Bible or Confucianism materials [] There are Spiritual issues to be addressed Coding Educator Interventions [x] Prayer [x] Active listening [x] Non-anxious presence [x] Spiritual/emotional support [] Crisis/trauma care [] Spiritual counseling [] Bereavement support [] Provided bereavement packet [] Provided Bible/devotional materials [] Provided toy/stuffed animal, coloring book to patient or family member [] Provided Communion [] Anointing/[place] [] Salvation [x] Completed spiritual assessment [] Other: Impact on Illness or Injury [] Angry [] Fearful [] Anxious [] Often cries [] Exhaustion [] Unable to work [] Unable to attend roman catholic [] Unable to walk/stand [] Unable to read [] Unable to drive [] Unable to eat/drink [] Unable to sleep [] Unable to be with family [] Patient intubated [] Other: Summary Time spent with patient 10 min
--- NOTE | 2022-05-19 16:04 | PM.PN ---
Subjective Subjective: Patient seen and examined this morning. Patient's wound VAC on in place with minimal bloody output. Patient resting comfortably. Splint on and in place. Dressing clean dry and intact. Patient updated about the intraoperative findings. No eugene purulence was appreciated there was a small area of soft bone that was bone cultures were then taken intraoperatively and sent for micro. The tendon was mobile. However given the chronicity of his wound I felt appropriate to close the sides of the wound that were well approximating hold off on any Achilles tendon repair as this is most severely important that we heal patient's soft tissue envelope given the open nature of this wound. I worry about putting any sutures or anchors in the wound bed given the duration of time and its been open. Talked in detail with the patient about this and ultimately at this point it feel appropriate that we treat patient and cleared him of any potential for infection we will take him back for surgery this Thursday for repeat I&D possible VAC possible primary closure. This point time I think it is in patient's best interest that we heal this wound and then we can discuss later Achilles tendon repair or reconstruction at a later date once his incisions heal and wear it for sure we have no infection. Patient is very understanding of this and at this point time we will plan for the surgery on Thursday. In the meantime no weightbearing to the right lower extremity maintain VAC and splint. Vitals/I&O/Wt Last Vital Signs Temp 97.9 F 05/19/22 11:20 Pulse 61 05/19/22 12:00 Resp 16 05/19/22 12:00 BP 124/72 05/19/22 12:00 Pulse Ox 100 05/19/22 12:00 O2 Del Method 05/19/22 12:00 05/19/22 05/19/22 05/19/22 06:59 14:59 22:59 Intake Total 300 / 4020.000 1336 / 1336 874.167 / 2210.167 Output Total 100 / 425 775 / 775 Balance 200 / 3595.000 561 / 561 874.167 / 1435.167 Weight last 48 hrs Weight 86.183 kg Physical Exam Const: COMMON NORMALS: patient oriented x3 Resp: COMMON NORMALS: normal respiratory effort, No retractions, No use of accessory muscles and clear to auscultation bilaterally EFFORT & INSPECTION: Yes symmetric chest movement AUSCULTATION: clear to auscultation bilaterally Cardio: COMMON NORMALS: regular rate, regular rhythm, S1 normal heart sound present, S2 normal heart sound present, No gallops present (Cardio), No murmurs present (Cardio), No rub (Cardio) and Peripheral pulses 2+ throughout RATE: regular rate RHYTHM: regular rhythm HEART SOUNDS: S1 normal heart sound present and S2 normal heart sound present PERIPHERAL PULSES: Peripheral pulses 2+ throughout GI: COMMON NORMALS: Normal to inspection, nondistended, normoactive bowel sounds present, Soft to palpation, non-tender, No hepatosplenomegaly present and no masses AUSCULTATION: Yes normoactive bowel sounds PALPATION: Yes Soft to palpation and Yes No hepatosplenomegaly present RECTAL EXAM: Yes deferred Extremity: COMMON NORMALS: no clubbing, cyanosis or edema and no pedal edema NARRATIVE EXTREMITY EXAM: rt foot wound Neuro: COMMON NORMALS: patient oriented x3 Data : 05/19/22 01:19 05/19/22 01:19 Micro: Microbiology 05/18/22 02:45 Blood Culture - Preliminary Blood NEGATIVE TO DATE 05/18/22 02:40 Blood Culture - Preliminary Blood NEGATIVE TO DATE A&P Assessment and plan (1) Wound of right foot: Orthopedics on board. Post debridement and wound VAC placement day 1. Plan for secondary closure on Thursday and possible repeat I&D. OR cultures sent. Plan for Achilles tendon repair/reconstruction as an outpatient once the wound heals. Follow-up blood culture, over culture. For now continue with vancomycin and Zosyn. Check MRSA swab. Wound care, nonweightbearing/weightbearing status as per orthopedics team. Physical therapy evaluation. (2) Hypertension: Call blood pressure less than 140/90 mmHg. Blood pressure at goal. For now continue holding off on both medications. (3) Laceration of right Achilles tendon: (4) Hyponatremia: To dehydration versus chronic alcohol abuse. Baseline sodium seems to be around 1 32-1 35. Currently 128. Continue with IV hydration. (5) Alcohol abuse: History of alcohol abuse. Monitor for alcohol withdrawal symptoms. If needed CIWA protocol. Oral thiamine, folic acid. (6) Anemia: Could be secondary to combination of blood loss anemia secondary to OR along with iron deficiency. Check iron panel, vitamin B12, folate level. Target hemoglobin more than 7. Transfuse unit of blood transfusion. Check stool for occult blood. Protonix 40 mg twice daily for now. Plan Analgesia: Tylenol as needed, morphine 1 mg every 4 hours as needed Glycemic control: Not needed Nutrition: Regular diet CODE STATUS: Full code PUD prophylaxis: Protonix every 12 hourly DVT prophylaxis: Continue Lovenox Discharge planning: Home with home health versus SNF placement as per weightbearing/nonweightbearing status closer to discharge, PT evaluation Continue with care at [facility] floor. This documentation was created by [employer] title insurance examiner software. Every effort was made to ensure accuracy of title insurance examiner. Any obvious errors or omissions should be clarified with the author of the document. Attestations Medical Necessity Statement*: Requires further hospitalization for management of right foot wound, possible osteomyelitis, Achilles tendon rupture post debridement while safe discharge planning and secondary closure is sought Time Spent in Patient Care: Greater than 35 minutes Coding Level of Care Code Acute Press Tender Short Goods for Chg Fwd Diagnoses Wound of right foot S91.301A Hypertension I10 Laceration of right Achilles tendon S86.021A Hyponatremia E87.1 Alcohol abuse F10.10 Anemia D64.9
[2022-05-20 00:10] VITALS: BP 131/76; PULSE 67; RESP 18; TEMP 36.7; O2SAT 97
[2022-05-20] MEDS: enoxaparin 40 mg/0.4 mL Syringe SUBCUT (00:27)
[2022-05-20 03:08] LABS: Basophils % 0.1 %; Hematocrit 24.7 % (42.0-52.0); Hemoglobin 7.7 g/dL (11.7-16.6); Lymphocytes # 1.2 10^3/uL (0.8-4.8); Lymphocytes % 12.2 %; Mean Corpuscular HGB Conc 31.2 g/dL (30.0-36.0); Mean Corpuscular Hemoglobin 28.7 pg (28.0-34.0); Mean Corpuscular Volume 92.2 fl (80-94); Mean Platelet Volume 10.7 fL (7.4-10.4); Monocytes # 1.1 10^3/uL (0.2-0.9); Monocytes % 10.6 %; Neutrophils # 7.62 10^3/uL (1.8-7.7); Neutrophils % 76.3 %; Nucleated Red Blood Cells % 0 %; Platelet Count 208 10^3/cmm (130-400); Red Blood Count 2.68 10^6/uL (4.1-5.3); Red Cell Distribution Width 16.5 % (12.1-15.1)
[2022-05-20 03:29] LABS: Alanine Aminotransferase 8 U/L (0-41); Albumin Level 2.3 g/dL (3.5-5.2); Alkaline Phosphatase 62 U/L (40-130); Anion Gap 11.9 (5-19); Aspartate Amino Transferase 17 U/L (0-40); Blood Urea Nitrogen 9 mg/dL (8-23); Calcium 8.2 mg/dL (8.5-10.5); Carbon Dioxide 21 mmol/L (22-29); Chloride 100 mmol/L (98-107); Chol HDL Ratio 1.79 mg/dL (1.0-5.00); Cholesterol 75 mg/dL (0-200); Globulin 3.3 g/dL (1.3-4.6); Glomerular Filtration Rate 112.8 mL/min (90-130); Glucose 110 mg/dL (65-115); HDL Cholesterol 42 mg/dL (60-100); LDL Cholesterol Calculated 22 mg/dL (50-129); Osmolality Calculated 267 mOsm/kg (285-295); Potassium 3.9 mmol/L (3.5-5.1); Sodium 129 mmol/L (136-145); Total Bilirubin 1.1 mg/dL (0.15-1.2); Total Protein 5.6 g/dL (6.6-8.7); Triglycerides 56 mg/dL (0-150); VLDL Cholestrol Calculation 11 mg/dL (0-30)
[2022-05-20 03:33] LABS: Vancomycin Trough 14.2 ug/mL (10-15)
[2022-05-20 04:00] VITALS: BP 134/77; PULSE 70; RESP 17; TEMP 36.6; O2SAT 100
[2022-05-20] MEDS: vancomycin 1,000 MG in sodium chloride 0.9% 250 ML 250 MG IV ×3 (04:48→21:09)
[2022-05-20] MEDS: piperacillin-tazobactam 3.375 GM in sodium chloride 0.9% (plus) 50 ML IV ×2 (04:51→15:47)
[2022-05-20 05:57] LABS: Estmated Average Glucose 91; Hemoglobin A1C 4.8 % (4.0-6.0)
[2022-05-20 07:39] VITALS: BP 132/73; PULSE 72; RESP 18; TEMP 36.8; O2SAT 93
--- NOTE | 2022-05-20 09:17 | ANE.PACU2 ---
Inpatient post-anesthesia follow up: Airway intact: Yes Vital signs: Temperature 98.2 F Pulse Rate 72 Respiratory Rate 18 Blood Pressure 132/73 Pulse Oximetry 93 Oxygen Delivery Me thod [ Room Air Current Rate & Del carlos] Oxygen Delivery Me thod Room Air Oxygen Flow Rate Fraction of Inspir ed Oxygen Hydration adequate: Yes Nausea and vomiting: No Pain level: 2 Mental status: Baseline
[2022-05-20] MEDS: pantoprazole 40 mg SDV IVP ×2 (09:39→21:10)
[2022-05-20] MEDS: thiamine 100 mg Tablet PO (09:39)
[2022-05-20] MEDS: folic acid 1 mg Tablet PO (09:39)
[2022-05-20 11:00] VITALS: BP 134/79; PULSE 62; RESP 18; TEMP 36.7; O2SAT 94
--- NOTE | 2022-05-20 13:10 | P.PN_ITS ---
Subjective Subjective: No acute events overnight. Patient remains hemodynamically stable and afebrile. Today morning sitting up in recliner. Wound VAC in place. Patient received monitor blood transfusion yesterday. Today morning did have IV infiltration of vancomycin after which he was put on cord compression and IV line was changed. Vitals/I&O/Wt Last Vital Signs Temp 98.0 F 05/20/22 11:00 Pulse 62 05/20/22 11:00 Resp 18 05/20/22 11:00 BP 134/79 05/20/22 11:00 Pulse Ox 94 05/20/22 11:00 O2 Del Method 05/20/22 11:00 05/19/22 05/20/22 05/20/22 22:59 06:59 14:59 Intake Total 2280.000 / 3616.000 300 / 3916.000 1540 / 1540 Output Total 500 / 1275 250 / 1525 350 / 350 Balance 1780.000 / 2341.000 50 / 2391.000 1190 / 1190 Physical Exam Const: COMMON NORMALS: patient oriented x3 Resp: COMMON NORMALS: normal respiratory effort, No retractions, No use of accessory muscles and clear to auscultation bilaterally EFFORT & INSPECTION: Yes symmetric chest movement AUSCULTATION: clear to auscultation bilaterally Cardio: COMMON NORMALS: regular rate, regular rhythm, S1 normal heart sound present, S2 normal heart sound present, No gallops present (Cardio), No murmurs present (Cardio), No rub (Cardio) and Peripheral pulses 2+ throughout RATE: regular rate RHYTHM: regular rhythm HEART SOUNDS: S1 normal heart sound present and S2 normal heart sound present PERIPHERAL PULSES: Peripheral pulses 2+ throughout GI: COMMON NORMALS: Normal to inspection, nondistended, normoactive bowel sounds present, Soft to palpation, non-tender, No hepatosplenomegaly present and no masses AUSCULTATION: Yes normoactive bowel sounds PALPATION: Yes Soft to palpation and Yes No hepatosplenomegaly present RECTAL EXAM: Yes deferred Extremity: COMMON NORMALS: no clubbing, cyanosis or edema and no pedal edema NARRATIVE EXTREMITY EXAM: rt foot wound Neuro: COMMON NORMALS: patient oriented x3 Data : 05/20/22 02:25 05/20/22 02:25 Micro: Microbiology 05/18/22 09:42 Gram Stain - Final Foot - Right Tissue Culture - Preliminary Coag positive Staphylococcus 05/19/22 10:40 MRSA Culture - Final Nose A&P Assessment and plan (1) Wound of right foot: Orthopedics on board. Post debridement and wound VAC placement day 1. Plan for secondary closure on Thursday and possible repeat I&D. Plan for Achilles tendon repair/reconstruction as an outpatient once the wound heals. Blood cultures so far negative, MRSA negative. Wound culture growing coag positive staph. For now continue vancomycin and Zosyn. Will de-escalate antibiotics as per sensitivities. Wound care, nonweightbearing/weightbearing status as per orthopedics team. Physical therapy evaluation. (2) Hyponatremia: To dehydration versus chronic alcohol abuse. Baseline sodium seems to be around 1 32-1 35. Currently 128. Continue with IV hydration. (3) Anemia: Could be secondary to combination of blood loss anemia secondary to OR along with iron deficiency. Severe iron deficiency anemia. Start on oral iron supplementation. Post monitor blood transfusion. Hemoglobin 7.7 today. Monitor hemoglobin daily for now. Stool for occult blood awaited. Protonix 40 mg twice daily for now. (4) Alcohol abuse: History of alcohol abuse. Monitor for alcohol withdrawal symptoms. If needed CIWA protocol. Oral thiamine, folic acid. (5) Hypertension: Goal blood pressure less than 140/90 mmHg. Blood pressure at goal. For now continue holding off on both medications. (6) Laceration of right Achilles tendon: Plan Analgesia: Tylenol as needed, morphine 1 mg every 4 hours as needed Glycemic control: Not needed Nutrition: Regular diet CODE STATUS: Full code PUD prophylaxis: Protonix every 12 hourly DVT prophylaxis: Continue Lovenox Discharge planning: SNF placement for further rehabitation and safety given nonweightbearing status. Case management alerted. Continue with care at [facility]. This documentation was created by [employer] practice professional software. Every effort was made to ensure accuracy of practice professional. Any obvious errors or omissions should be clarified with the author of the document. Attestations Medical Necessity Statement*: Requires further hospitalization for management of Achilles tendon rupture, possible osteomyelitis post debridement, delayed closure of wound along with wound VAC advised safe discharge planning is sought. Time Spent in Patient Care: Greater than 35 minutes Coding Level of Care Code Acute Installations Inspector for [facility] Fwd Diagnoses Wound of right foot S91.301A Hyponatremia E87.1 Anemia D64.9 Alcohol abuse F10.10 Hypertension I10 Laceration of right Achilles tendon S86.021A
--- NOTE | 2022-05-20 15:16 | P.PN_ITS ---
Subjective Subjective: Patient seen and examined this morning doing well. He did receive 1 unit of PRBC yesterday. Patient is up at bedside eating lunch. We will plan for n.p.o. at midnight tonight with plan for surgery tomorrow for repeat I&D of the right heel with plan for primary closure with incisional VAC placement. We did have detailed discussion about staging his Achilles tendon repair. At this point time patient's bone cultures have grown coagulase positive Staphylococcus. This point in time would recommend that we stage patient's Achilles repair this is more of a important that we close patient's soft tissue in this heal. We will debride the calcaneus wound tomorrow with repeat I&D in hopes for primary closure with incisional VAC. We will contact infectious disease and get them on board to help with discharge antibiotic recommendations. Patient understands and agrees with current plan. All questions answered. Vitals/I&O/Wt Last Vital Signs Temp 98.0 F 05/20/22 11:00 Pulse 62 05/20/22 11:00 Resp 18 05/20/22 11:00 BP 134/79 05/20/22 11:00 Pulse Ox 94 05/20/22 11:00 O2 Del Method 05/20/22 11:00 05/20/22 05/20/22 05/20/22 06:59 14:59 22:59 Intake Total 300 / 3916.000 1540 / 1540 Output Total 250 / 1525 350 / 350 Balance 50 / 2391.000 1190 / 1190 Physical Exam Narrative: Examination right lower extremity limited secondary to splint. A nterior dorsiflexion blocking splint on in place toes have capillary refill less than 3 seconds. He is able to wiggle toes endorse sensation tact light touch of the toes. VAC on in place with good seal with minimal output. Data : 05/20/22 02:25 05/20/22 02:25 Micro: Microbiology 05/18/22 09:42 Gram Stain - Final Foot - Right Tissue Culture - Preliminary Coag positive Staphylococcus 05/19/22 10:40 MRSA Culture - Final Nose A&P Assessment and plan (1) Laceration of right Achilles tendon: (2) Wound of right foot: Plan N.p.o. at midnight Maintain nonweightbearing right lower extremity Keep splint clean dry and intact Maintain VAC IV antibiotics Bone cultures grown coagulase positive Staphylococcus Recommend consult infectious disease and get them on board for discharge recommendations for antibiotics Plan for or tomorrow for right calcaneus wound irrigation and debridement with possible primary closure and incisional VAC placement Attestations Medical Necessity Statement*: Patient sustained acute on chronic wound with Achilles rupture to the right heel. Requiring hospitalization for surgical intervention with I&D's as well as antibiotic treatment. Coding Level of Care Code Acute Strategic Communications Specialist for Josias Mcclellan Diagnoses Laceration of right Achilles tendon S86.021A Wound of right foot S91.301A
[2022-05-20 15:54] VITALS: BP 117/65; PULSE 73; RESP 18; TEMP 36.8; O2SAT 91
--- NOTE | 2022-05-20 16:43 | PC.NURSE ---
IV vancomycin completed. Flushed line. Observed patient scratching right arm below right iv site. Turned the light on and preceded to observe iv site swollen, red, and palpated warmth. Patient denied any pain, mild itching nothing to report to you I then removed the iv and observed it to be completely intact. I preceded to inform the charge nurse, physician was notified. Cold compress applied to right arm for the next 24 hours.
--- NOTE | 2022-05-20 17:01 | PC.NURSE ---
This nurse changed the ice pack on the right arm. The site was observed and did not appear swollen and decreased redness. Patient tolerated well and was understanding of the care provided.
--- NOTE | 2022-05-20 17:06 | PC.NURSE ---
Brachial pulse was palpated at 3+ and radial pulse palpated at 3+. Capillary refill observed to be less than 2 seconds.
[2022-05-20] MEDS: ferrous gluconate 324 mg Tablet PO (17:15)
--- NOTE | 2022-05-20 18:09 | PC.NURSE ---
Patient was eating dinner and the cold compress on the right arm came loose. This nurse re assessed the site and did not observe any edema, redness is continuing to decrease. I then re wrapped the cold compress. patient states my arm is now more comfortable Patient does not report any pain at this time.
[2022-05-20 20:00] VITALS: BP 139/76; PULSE 89; RESP 17; TEMP 36.4; O2SAT 95
[2022-05-21] VITALS (14 sets, daily range): BP systolic 125–170; BP diastolic 72–96; PULSE 71–90; RESP 16–20; TEMP 36.1–36.8; O2SAT 92–99
[2022-05-21] MEDS: piperacillin-tazobactam 3.375 GM in sodium chloride 0.9% (plus) 50 ML IV ×4 (00:46→22:56)
[2022-05-21 03:01] LABS: Basophils % 0.4 %; Eosinophils # 0.1 10^3/uL (0.0-0.8); Hematocrit 23.4 % (42.0-52.0); Hemoglobin 7.4 g/dL (11.7-16.6); Lymphocytes # 1.6 10^3/uL (0.8-4.8); Mean Corpuscular HGB Conc 31.6 g/dL (30.0-36.0); Mean Corpuscular Volume 91.8 fl (80-94); Mean Platelet Volume 10.7 fL (7.4-10.4); Monocytes # 0.8 10^3/uL (0.2-0.9); Neutrophils # 5.65 10^3/uL (1.8-7.7); Neutrophils % 69.2 %; Nucleated Red Blood Cells % 0 %; Platelet Count 196 10^3/cmm (130-400); Red Blood Count 2.55 10^6/uL (4.1-5.3); Red Cell Distribution Width 17.2 % (12.1-15.1); White Blood Count 8.2 10^3/uL (4.0-10.0)
[2022-05-21 03:27] LABS: Alanine Aminotransferase 8 U/L (0-41); Albumin Level 2.3 g/dL (3.5-5.2); Alkaline Phosphatase 57 U/L (40-130); Anion Gap 11.6 (5-19); Aspartate Amino Transferase 16 U/L (0-40); Blood Urea Nitrogen 9 mg/dL (8-23); Calcium 8.1 mg/dL (8.5-10.5); Carbon Dioxide 23 mmol/L (22-29); Chloride 102 mmol/L (98-107); Globulin 3.2 g/dL (1.3-4.6); Glomerular Filtration Rate 112.8 mL/min (90-130); Glucose 103 mg/dL (65-115); Osmolality Calculated 275 mOsm/kg (285-295); Potassium 3.6 mmol/L (3.5-5.1); Sodium 133 mmol/L (136-145); Total Bilirubin 0.3 mg/dL (0.15-1.2); Total Protein 5.5 g/dL (6.6-8.7)
[2022-05-21] MEDS: vancomycin 1,000 MG in sodium chloride 0.9% 250 ML 250 MG IV (05:10)
[2022-05-21] MEDS: pantoprazole 40 mg SDV IVP ×2 (08:47→20:52)
[2022-05-21] MEDS: thiamine 100 mg Tablet PO (08:48)
[2022-05-21] MEDS: folic acid 1 mg Tablet PO (08:49)
[2022-05-21] MEDS: ferrous gluconate 324 mg Tablet PO ×2 (08:51→17:45)
--- NOTE | 2022-05-21 10:19 | P.ANESASSM_ITS ---
Pre-Anesthetic Assessment Height/Weight: Height 1.85 m Weight 86.183 kg Temp Pulse Resp BP Pulse Ox O2 Del Method 97.4 F L 72 16 146/87 99 05/21/22 08:00 05/21/22 08:00 05/21/22 08:00 05/21/22 08:00 05/21/22 08:00 05/21/22 08:00 Preop Diagnosis: Right heel wound laceration with Achilles tendon rupture Operation Date: 05/18/22 10:10 Proposed Procedures p Incision & Drainage Lower Extremity(Right) - Camilo Bella, DO Operation Date: 05/21/22 12:40 Proposed Procedures p Right heel wound irrigation and debridement with closure(Right) - Camilo Charleston, DO Familial anesthetic complications: None Was Beta Chad taken within 24 hours: N/A (Held during admission ) Was Clonidine taken within 24 hours: N/A Last intake: Intake Last Liquid Date 05/17/22 Last Liquid Time 20:00 Last Solid Date 05/17/22 Last Solid Time 18:00 Social Alcohol (Hx of ETOH abuse ) and Tobacco Airway Submandibular: within normal limits Cervical ROM: within normal limits Mallampati: Class II Dentition: caps Pulmonary None reported CV/HEM Anemia (s/p 1 unit Hg 7.4 on 05/21/22) and Hypertension METS > 4 None reported Na 133 Hepatic None reported GI Gastroesophageal Reflux Disease (Well controlled on empty stomach ) Metabolic Hyperlipidemia and Thyroid Disease Musc/skel Hx of laceration to right Achilles tendon Neuropsych Cerebrovascular Accident (Denies residual sequelae, facial asymmetry noted on exam) Anesthetic Plan ASA status: 3 Anesthesia: Anesthesia Evaluation and General Other: We discussed risk and benefits of general anesthesia including PONV, sore throat (sometimes severe), corneal abrasion, positioning and peripheral nerve injuries, life threatening allergic reaction, post operative ICU admission requiring prolonged intubation, aspiration, stroke, heart attack, , and rare incidences of recall. Patient consents to proceed with general anesthesia. Plan perioperative metoprolol as needed. Risk of > 500 ml blood loss (7ml/kg in children): No Medications/Allergies Home Medications Medication Instructions Recorded Confirmed Last Taken Type levofloxacin 750 mg tablet 750 mg PO DAILY 10 days #10 tabs 05/16/22 05/18/22 Unknown Rx metoprolol tartrate 25 mg tablet 25 mg PO BID 05/16/22 05/18/22 Unknown History aspirin 81 mg chewable tablet 81 mg PO DAILY 05/18/22 05/18/22 Unknown History atorvastatin 20 mg tablet 20 mg PO DAILY 05/18/22 05/18/22 Unknown History furosemide 20 mg tablet (Lasix) 20 mg PO DAILY PRN Edema 05/18/22 05/18/22 Unknown History lisinopril 10 mg tablet 10 mg PO DAILY 05/18/22 05/18/22 Unknown History vitamin B complex 1 cap PO DAILY 05/18/22 05/18/22 Unknown History Allergies Allergy/AdvReac Type Severity Reaction Status Date / Time Sulfa (Sulfonamide Allergy Intermediate Unknown Verified 05/16/22 13:26 Antibiotics) Current Medications Generic Name Dose Route Start Last Admin Trade Name Freq PRN Reason Stop Dose Admin Enoxaparin Sodium 40 mg 05/18/22 23:00 05/21/22 00:46 Enoxaparin 40 Mg/0.4 Ml Syringe SUBCUT Not Given Q24H LIZETH Ferrous Gluconate 324 mg 05/20/22 18:00 05/21/22 08:51 Ferrous Gluconate 324 Mg Tablet PO 324 mg BIDWM LIZETH Administration Folic Acid 1 mg 05/18/22 09:00 05/21/22 08:49 Folic Acid 1 Mg Tablet PO 1 mg DAILY LIZETH Administration Piperacillin Sod/Tazobactam 50 mls @ 12.5 mls/hr 05/18/22 04:00 05/21/22 06:28 Sod 3.375 gm/ Sodium Chloride IV 12.5 mls/hr Q8H LIZETH Administration Protocol Pantoprazole Sodium 40 mg 05/19/22 09:45 05/21/22 08:47 Pantoprazole 40 Mg Sdv IVP 40 mg Q12H LIZETH Administration Thiamine Mononitrate 100 mg 05/18/22 09:00 05/21/22 08:48 Thiamine 100 Mg Tablet PO 100 mg DAILY LIZETH Administration PFSH Anesthesia Medical History (Updated 05/19/22 @ 16:08 by Srinivas Hare MD) Alcohol abuse Anemia Hypertension Laceration of right Achilles tendon Social History Smoking and tobacco status: current every day smoker Data Anesthesia : 05/21/22 01:58 05/21/22 01:58 Short CBC 05/20/22 05/21/22 Range/Units 02:25 01:58 WBC 10.0 8.2 (4.0-10.0) 10^3/uL Hgb 7.7 L 7.4 L (11.7-16.6) g/dL Hct 24.7 L 23.4 L (42.0-52.0) % MCV 92.2 91.8 (80-94) fl Plt Count 208 196 (130-400) 10^3/cmm Neut % (Auto) 76.3 69.2 % Neut # (Auto) 7.62 5.65 (1.8-7.7) 10^3/uL BMP 05/20/22 05/21/22 02:25 01:58 Sodium 129 L 133 L Potassium 3.9 3.6 Chloride 100 102 Carbon Dioxide 21 L 23 BUN 9 9 Creatinine 0.7 0.7 Glucose 110 103 Calcium 8.2 L 8.1 L Liver Function 05/20/22 05/21/22 Range/Units 02:25 01:58 Total Bilirubin 1.1 0.3 (0.15-1.2) mg/dL AST 17 16 (0-40) U/L ALT 8 8 (0-41) U/L Alkaline Phosphatase 62 57 (40-130) U/L Albumin 2.3 L 2.3 L (3.5-5.2) g/dL Blood Bank 05/17/22 05/19/22 23:55 19:30 Blood Type Cancelled O Positive Rho(D) Type Cancelled Positive Antibody Screen Cancelled Negative Microbiology 05/18/22 09:42 Gram Stain - Final Foot - Right Tissue Culture - Preliminary Coag positive Staphylococcus Cardiac Studies: No Data to Display
--- NOTE | 2022-05-21 10:28 | PC.OT ---
HOLD OT TREATMENT SECONDARY TO SCHEDULED SURGERY TODAY AND HGB: 7.4
[2022-05-21] MEDS: sodium chloride 0.9% 1,000 ML 30 ML (12:46)
--- NOTE | 2022-05-21 13:43 | PM.PN ---
Subjective Subjective: No acute events overnight. Patient has remained hemodynamically stable and afebrile on room air. Patient is to undergo possible repeat I&D and primary closure of the wound today with orthopedics. Wound culture/bone cultures from the OR growing coag positive staph. Vitals/I&O/Wt Last Vital Signs Temp 98 F 05/21/22 12:19 Pulse 88 05/21/22 12:19 Resp 16 05/21/22 12:19 BP 156/77 05/21/22 12:19 Pulse Ox 92 05/21/22 12:19 O2 Del Method 05/21/22 12:19 05/20/22 05/21/22 05/21/22 22:59 06:59 14:59 Intake Total 300 / 2080 300 / 2380 Output Total 275 / 625 650 / 1275 300 / 300 Balance 25 / 1455 -350 / 1105 -300 / -300 Physical Exam Const: COMMON NORMALS: patient oriented x3 Resp: COMMON NORMALS: normal respiratory effort, No retractions, No use of accessory muscles and clear to auscultation bilaterally EFFORT & INSPECTION: Yes symmetric chest movement AUSCULTATION: clear to auscultation bilaterally Cardio: COMMON NORMALS: regular rate, regular rhythm, S1 normal heart sound present, S2 normal heart sound present, No gallops present (Cardio), No murmurs present (Cardio), No rub (Cardio) and Peripheral pulses 2+ throughout RATE: regular rate RHYTHM: regular rhythm HEART SOUNDS: S1 normal heart sound present and S2 normal heart sound present PERIPHERAL PULSES: Peripheral pulses 2+ throughout GI: COMMON NORMALS: Normal to inspection, nondistended, normoactive bowel sounds present, Soft to palpation, non-tender, No hepatosplenomegaly present and no masses AUSCULTATION: Yes normoactive bowel sounds PALPATION: Yes Soft to palpation and Yes No hepatosplenomegaly present RECTAL EXAM: Yes deferred Extremity: COMMON NORMALS: no clubbing, cyanosis or edema and no pedal edema NARRATIVE EXTREMITY EXAM: rt foot wound Neuro: COMMON NORMALS: patient oriented x3 Data : 05/21/22 01:58 05/21/22 01:58 Micro: Microbiology 05/18/22 09:42 Gram Stain - Final Foot - Right Tissue Culture - Preliminary Coag positive Staphylococcus A&P Assessment and plan (1) Acute osteomyelitis of right calcaneus: Wound cultures growing staph aureus. Most likely MSSA. Awaiting official ID and speciation. Patient will need IV antibiotics for next 6 weeks. Most likely with ceftriaxone. Infectious disease consulted as per orthopedics request. (2) Wound of right foot: Orthopedics on board. Post debridement and wound VAC placement day 3. Plan for further I&D and primary closure today. Plan for Achilles tendon repair/reconstruction as an outpatient once the wound heals. Blood cultures so far negative, MRSA negative. Wound culture growing staph RES, most likely MSSA Stop vancomycin. Continue with Zosyn for now. Will de-escalate antibiotics as per sensitivities. Wound care, nonweightbearing/weightbearing status as per orthopedics team. Physical therapy evaluation. (3) Hyponatremia: To dehydration versus chronic alcohol abuse. Baseline sodium seems to be around 1 32-1 35. Currently back to baseline. Continue with IV hydration. (4) Anemia: Could be secondary to combination of blood loss anemia secondary to OR along with iron deficiency. Severe iron deficiency anemia. Start on oral iron supplementation. Post monitor blood transfusion. Hemoglobin 7.7 today. Monitor hemoglobin daily for now. Stool for occult blood awaited. Protonix 40 mg twice daily for now. Qualifiers: Anemia type: iron deficiency Iron deficiency anemia type: inadequate dietary iron intake Qualified Code(s): D50.8 - Other iron deficiency anemias (5) Alcohol abuse: History of alcohol abuse. Monitor for alcohol withdrawal symptoms. If needed CIWA protocol. Oral thiamine, folic acid. (6) Hypertension: Goal blood pressure less than 140/90 mmHg. Blood pressure is higher today. Restart lisinopril. (7) Laceration of right Achilles tendon: Plan Analgesia: Tylenol as needed, morphine 1 mg every 4 hours as needed Glycemic control: Not needed Nutrition: Regular diet CODE STATUS: Full code PUD prophylaxis: Protonix every 12 hourly DVT prophylaxis: Continue Lovenox Discharge planning: SNF placement for further rehabitation and safety given nonweightbearing status. Case management alerted. Continue with care at [facility]. This documentation was created by [employer] dynamotor repairer software. Every effort was made to ensure accuracy of dynamotor repairer. Any obvious errors or omissions should be clarified with the author of the document. Attestations Medical Necessity Statement*: Requires further hospitalization for management of right calcaneal osteomyelitis, open wound while primary closure with wound VAC is done and safe discharge planning is sought. Time Spent in Patient Care: Greater than 35 minutes Coding Level of Care Code Acute Operations And Maintenance Manager for g Fwd Diagnoses Acute osteomyelitis of right calcaneus M86.171 Wound of right foot S91.301A Hyponatremia E87.1 Anemia D50.8 Anemia type: iron deficiency Iron deficiency anemia type: inadequate dietary iron intake Alcohol abuse F10.10 Hypertension I10 Laceration of right Achilles tendon S86.021A
--- NOTE | 2022-05-21 14:18 | W.PM.OPSUD ---
Surgery/Procedure H&P Update DATE OF PROCEDURE: May 21, 2022 DATE H&P PERFORMED: 05/18/22 CHANGES TO PREVIOUS DOCUMENTATION: None PREOP DIAGNOSIS: Right heel wound laceration with Achilles tendon rupture PRIMARY INDICATION FOR PROCEDURE: Right heel wound laceration with Achilles tendon rupture, positive bone cultures right calcaneus PLANNED PROCEDURE: Operation Date: 05/18/22 10:10 Proposed Procedures p Incision & Drainage Lower Extremity(Right) - Camilo Bella DO Operation Date: 05/21/22 12:40 Proposed Procedures p Right heel wound irrigation and debridement with closure(Right) - Camilo Bella DO
[2022-05-21] MEDS: vancomycin 1,000 MG SDV 1000 MG XX (15:08)
--- NOTE | 2022-05-21 15:40 | P.OP_ITS ---
Brief Operative Note Date of procedure: 05/21/22 Pre-op diagnosis: Right heel wound laceration infection and Achilles tendon ru pture Post-op diagnosis: same Procedure Done: Right heel wound irrigation and debridement and primary closure with incisional VAC placement Surgeon: Camilo Bella Estimated blood loss (mL): 25 Complications: None Post-op Plan: Patient to recover in PACU. Patient will return to the floor. Nonweightbearing right lower extremity. Incisional VAC on in place. Will consult infectious disease for discharge antibiotic recommendations. Incisional VAC will remain on and in place for 7 days postoperatively. He will see me in office in 7 days for incisional VAC takedown and incision check. Condition: stable Disposition: floor Coding Level of Care Code Acute Channeler Outsole for Josias Mcclellan
--- NOTE | 2022-05-21 15:42 | PM.PACU ---
PACU note Narrative: Patient recovering in PACU. Will return to the floor. Splint on and in place. Incisional VAC on in place with good seal. Toes are warm well perfused. Patient wiggles toes and not sensation intact light touch of the toes. Exam: somnolent, arousable (See narrative for detailed see narrative for detailed examination) Disposition: back to floor
--- NOTE | 2022-05-21 15:56 | P.OP_ITS ---
Operative Report Date of procedure: May 21, 2022 Pre-op diagnosis: Preop Diagnosis Right heel wound laceration with Achilles tendon rupture Preop Diagnosis Right heel wound laceration with Achilles tendon rupture Post-op diagnosis: Right heel wound laceration with Achilles tendon rupture, acute osteomyelitis calcaneus Procedure done: Right heel wound irrigation and debridement with primary closure and incisional VAC placement Surgeon: Camilo Bella DO Estimated blood loss: 25 mL 37 minutes IV fluids: See anesthesia record Complications: None Findings: See operative report narrative Condition: stable Disposition: floor Brief History: Jem 66-year-old male with a remote history of a laceration to his right heel from a recliner 4 to 6 weeks ago. He was walking on Thursday tonight when he felt his right ankle give out and his wound open significantly. He is brought to the emergency department found to have an acute Achilles tendon rupture with a large wound to his right heel. He was subsequently admitted to the hospital and taken to the OR by myself on 05/18/2022 for right heel irrigation and debridement with VAC placement. Decision was made to not attempt acute repair of Achilles tendon given chronicity of his wound and to allow for cultures and a second washout. As result, patient returned to floor started on empiric antibiotics cultures were taken on initial surgery. Patient's now grown MSSA from his bone cultures intraoperatively. This point in time had a long detailed discussion with him about his treatment options and prognosis. This point time given acute osteomyelitis of the calcaneus would recommend a repeat I&D with primary closure if possible and incisional VAC placement. We talked about holding off on any Achilles tendon repair secondary to patient's acute osteomyelitis and placing of implants in this area will only be chance of harboring of further infection. This point time we will try and get his incision to heal as well as clear of the osteomyelitis and talk about potentially Achilles surgery at a later date. We did express that he could potentially have to ambulate with the AFO brace once all is said and done until we are capable taking care of the Achilles. All risk benefits complications alternatives of surgery were thoroughly discussed with patient. He understands and agrees to proceed with surgical intervention. All questions answered. Procedure: Patient seen and evaluated in the preoperative holding area consent was reviewed with patient. Correct extremity was marked. Patient seen evaluated by anesthesia department and preoperative team. Once cleared for surgery he was then taken back to the OR. He went to sleep on the hospital bed underwent general anesthesia per the anesthesia department. Once anesthetized and intubated patient was then transported to the OR table in a prone position all bony prominences were well-padded and patient was appropriately secured. This point time the right lower extremity had a nonsterile tourniquet applied. The splint and previous VAC was then subsequently taken down. The patient's right lower extremity was then prepped and draped in standard orthopedic fashion. Patient was due for his scheduled antibiotic which was subsequently given in traoperatively. Final timeout was performed. Right lower extremity was elevated, tourniquet was inflated to 300 mmHg. Inspection of the incision shows the medial and lateral aspects of the wound we re remaining well approximated with nylon suture. This point time started with inspection of the wound bed. The calcaneus appeared to be with good integrity and no further areas of soft calcaneus this was probed in multiple areas and did not collapse or show any signs of softening. This point there was some necrotic bony edges on the calcaneus that were devitalized at this point these were subs equently excised with sharp scalpel excision of skin subcu tissue fascia tendon and bone. The total residual wound bed was 8 cm x 2 cm x 3 cm in size. Once all devitalized tissue was debrided this all was taken back to healthy bleeding tissue. Then at this point did 6 L of Pulsavac irrigation. This point the wound bed looks healthy with no pockets of purulence or abscess. This point I assess the ability to approximate the incision which with plantarflexion could approximate the last mid substance of the incision. Next I put 1 g of Vanco mycin powder in the wound bed. Next utilizing interrupted mattress sutures with a combination of 2-0 nylon and PDS. I reapproximated with primary closure of the incision. All edges were well approximated. I then cleaned the incision and then placed a incisional VAC dressing. Tourniquet was deflated hemostasis was satisfactory. Incisional VAC had excellent seal. Patient was then placed in a well-padded and bulky anterior dorsiflexion blocking splint to protect his incision and maintain his foot in plantarflexion. He was then awakened from anesthesia and taken to PACU in stable condition. Disposition: Patient taken to PACU in stable condition. Will return to the floor. Infectious disease will be consulted and have on board for discharge antibiotic recommendations. This point time we will leave incisional VAC on in place for 7 days we will see him 7 days postoperatively in the office next week for dressing takedown and incisional VAC takedown. I anticipate at this point time main goal of getting incision to heal due to patient's compliance anticipate we will place him in a cast in the office to protect his incision. He understands he should be nonweightbearing to the right lower extremity. We will defer to infectious d isease for antibiotics. Will be given appropriate discharge instructions as well as pain medication DVT prophylaxis.
--- NOTE | 2022-05-21 16:07 | SUR.PHASEI ---
1548 PT TO PACU 5 AWAKE ALERT TALKATIVE ON 8L MASK RT FOOT WITH SOFT DRESSING AND WOUND VAC IN PLACE AND WORKING DISTAL TOES PINK WARM WITH FAST CAP REFILL NOTED MONITOR WITH SR NO ECTOPY, IV TO LT WRIST WITH NS 500ML NS UP AT KVO RATE PER GRAVITY, FEET ELEVATED WITH BED
--- NOTE | 2022-05-21 16:34 | ANE.PACU2 ---
Inpatient post-anesthesia follow up: Airway intact: Yes Vital signs: Temperature 97.6 F Pulse Rate 90 Respiratory Rate 19 Blood Pressure 141/78 Pulse Oximetry 97 Oxygen Delivery Me thod [ Room Air Current Rate & Del carlos] Oxygen Delivery Me thod Simple Mask Oxygen Flow Rate 8 Fraction of Inspir ed Oxygen Hydration adequate: Yes Nausea and vomiting: No Pain level: 1 Mental status: Baseline
[2022-05-21 19:46] LABS: Hematocrit 26.9 % (42.0-52.0); Hemoglobin 8.4 g/dL (11.7-16.6)
--- NOTE | 2022-05-21 20:20 | P.CONIM_ITS ---
Providers/Reason For Consult Consulting Physician/Specialty*: /ID Reason for Consult*: Calcaneal osteomyelitis Requesting Physician: Dr. Bella/ [facility] Attending Physician: Srinivas Hare MD History of Present Illness History of Present Illness Jem Coffey is a 66 year old male ?with past medical history of hypertension, alcohol use, who sustained an injury to the right foot when it was caught in a recliner about 2 months ago. At some point unknown to him the wound opened up and started to drain. He presented to the urgent care on May 16, 2022 and was started on antibiotic treatment with levofloxacin and referred to wound care. However prior to being able to make this appointment on May 18, 2022 his wound started to open up more, had significant bleeding with clots that covered the floor of his car. He then came into the emergency room. He was noted to have significant ulceration over his heel with ulceration extending up to the calcaneal bone, along with rupture of the Achilles tendon and was taken for I&D on May 18, 2022. Wound VAC was placed thereafter. Bone cultures were taken from the calcaneum and have now revealed MSSA. ID is consulted for further antibiotic recommendations. He is thus far been on antibiotic treatment with piperacillin tazobactam and vancomycin.he has been afebrile and hemodynamically stable since admission. Review of Systems General: Reports: 10 or more systems reviewed and unremarkable except in HPI and below Const: Denies: fever(s), chills or body aches Eyes: Denies: change in vision, blurry vision or photophobia ENMT: Reports: hoarseness; Denies: throat pain, enlarged tonsils, odynophagia or nasal congestion Card: Denies: chest pain, palpitations, irregular heart rhythm, edema, swelling of feet/ankles, lightheadedness, pre-syncope, dyspnea on exertion or orthopnea Resp: Denies: dyspnea, productive cough, non-productive cough, wheezing, stridor, pain on inspiration, change in phlegm color, hemoptysis or chest congestion GI: Denies: abdominal pain, nausea, vomiting, hematemesis, coffee ground emesis, dysphagia, heartburn, diarrhea, constipation, GI cramping, change in stool character, hematochezia or melena : Denies: flank pain, dysuria, urinary frequency, urinary urgency, urinary hesitancy or hematuria Musc: Denies: neck pain, back pain, extremity pain, joint swelling, joint warmth or deformity Neuro: Denies: headache(s), numbness in extremities, weakness in extremities, sensory changes, difficulty walking, frequent falls, dizziness, vertigo, behavioral changes, Slurred speech present or seizure-like activity Psych: Denies: anxiety, depression, suicidal ideation or homicidal ideation Endo: Denies: polyuria, polydipsia, tired all the time, cold intolerance or hot flashes Aniceto/Lymph: Denies: easy bruising or easy bleeding Medications/Allergies Home Medications Medication Instructions Recorded Confirmed Last Taken Type levofloxacin 750 mg tablet 750 mg PO DAILY 10 days #10 tabs 05/16/22 05/18/22 Unknown Rx metoprolol tartrate 25 mg tablet 25 mg PO BID 05/16/22 05/18/22 Unknown History aspirin 81 mg chewable tablet 81 mg PO DAILY 05/18/22 05/18/22 Unknown History atorvastatin 20 mg tablet 20 mg PO DAILY 05/18/22 05/18/22 Unknown History furosemide 20 mg tablet (Lasix) 20 mg PO DAILY PRN Edema 05/18/22 05/18/22 Unknown History lisinopril 10 mg tablet 10 mg PO DAILY 05/18/22 05/18/22 Unknown History vitamin B complex 1 cap PO DAILY 05/18/22 05/18/22 Unknown History Allergies Allergy/AdvReac Type Severity Reaction Status Date / Time Sulfa (Sulfonamide Allergy Intermediate Unknown Verified 05/16/22 13:26 Antibiotics) Current Medications Generic Name Dose Route Start Last Admin Trade Name Jose PRN Reason Stop Dose Admin Enoxaparin Sodium 40 mg 05/18/22 23:00 05/21/22 00:46 Enoxaparin 40 Mg/0.4 Ml Syringe SUBCUT Not Given Q24H [facility] Ferrous Gluconate 324 mg 05/20/22 18:00 05/21/22 17:45 Ferrous Gluconate 324 Mg Tablet PO 324 mg BIDWM [facility] Administration Folic Acid 1 mg 05/18/22 09:00 05/21/22 08:49 Folic Acid 1 Mg Tablet PO 1 mg DAILY [facility] Administration Piperacillin Sod/Tazobactam 50 mls @ 12.5 mls/hr 05/18/22 04:00 05/21/22 15:22 Sod 3.375 gm/ Sodium Chloride IV Infused Q8H [facility] Infusion Protocol Pantoprazole Sodium 40 mg 05/19/22 09:45 05/21/22 08:47 Pantoprazole 40 Mg Sdv IVP 40 mg Q12H [facility] Administration Thiamine Mononitrate 100 mg 05/18/22 09:00 05/21/22 08:48 Thiamine 100 Mg Tablet PO 100 mg DAILY LIZETH Administration PFSH Acute PFSH: Medical History Alcohol abuse Anemia CVA (cerebral vascular accident) Hypertension Laceration of right Achilles tendon Social History Smoking and tobacco status: current every day smoker Vitals/I&O/Wt Last Vital Signs Temp 97 F L 05/21/22 17:05 Pulse 71 05/21/22 17:05 Resp 17 05/21/22 17:05 BP 164/96 05/21/22 17:05 Pulse Ox 96 05/21/22 17:05 O2 Del Method 05/21/22 17:05 O2 Flow Rate 8 05/21/22 16:00 05/21/22 05/21/22 05/21/22 06:59 14:59 22:59 Intake Total 300 / 2380 50 / 50 450 / 500 Output Total 650 / 1275 300 / 300 325 / 625 Balance -350 / 1105 -250 / -250 125 / -125 Physical Exam Narrative: General: No acute distress, AO x3 HEENT: PERRLA, pupils bilaterally equal and reactive, pallors not present Chest: Normal vesicular breath sounds, no added sounds, equal good air entry bilaterally CVS: S1-S2 regular, no murmurs, no tachycardia, no gallops, no rubs Abdomen: Soft, nontender, no organomegaly, bowel sounds present Neuro: No focal deficits, no facial deformity, AO x3, power 5/5 in all limbs Extremities: Right foot with surgical dressing and wound VAC in place. Not opened for exam today Data : 05/22/22 03:03 05/22/22 03:03 Micro: Microbiology 05/18/22 09:42 Gram Stain - Final Foot - Right Tissue Culture - Final Staphylococcus aureus * Amoxicillin/Clavulanate <=4/2 S * Ampicillin >8 R * Ampicillin/Sulbactam <=8/4 S * Ceftriaxone <=8 S * Ciprofloxacin <=1 S * Clindamycin <=0.5 R * Erythromycin >4 R * Gentamicin <=4 S * Levofloxacin <=1 S * Linezolid 4 S * Oxacillin <=0.25 S * Penicillin >8 R * Rifampin <=1 S * Tetracycline <=4 S * Trimethoprim/Sulfamethoxazole <=0.5/9.5 S Vancomycin 1 S Daptomycin <=0.5 S A&P Assessment and plan (1) Acute osteomyelitis of right calcaneus: Acute osteomyelitis of the calcaneal bone status post I&D. Wound culture revealing MSSA. Discontinue piperacillin tazobactam and vancomycin. Change treatment to ceftriaxone 2 g IV daily. Patient is currently undergoing I&D with wound VAC placement per orthopedics. Recommend treating patient with ceftriaxone 2 g IV daily at least over the next 6 weeks (05/18-06/29). Further treatment course to be decided based on clinical recovery and status of wound. PICC line to facilitate above duration of antibiotics. Discussed with patient the option of home IV infusion, however patient prefers to complete IV antibiotics, dressing, etc at a correction facility rather than at home. will follow (2) Laceration of right Achilles tendon: Coding Level of Care Code Acute Lodging Manager for Josias Mcclellan Diagnoses Acute osteomyelitis of right calcaneus M86.171 Laceration of right Achilles tendon S86.021A
[2022-05-21] MEDS: oxyCODONE 5 mg IR Tab/Cap PO (20:52)
[2022-05-21] MEDS: enoxaparin 40 mg/0.4 mL Syringe SUBCUT (22:56)
[2022-05-21] MEDS: sodium chloride 0.9% 1,000 ML 30 ML IV (23:02)
[2022-05-22] VITALS (7 sets, daily range): BP systolic 125–164; BP diastolic 68–88; PULSE 76–94; RESP 16–21; TEMP 36.4–36.9; O2SAT 95–99
[2022-05-22 03:24] LABS: Hematocrit 25.9 % (42.0-52.0); Lymphocytes # 0.6 10^3/uL (0.8-4.8); Lymphocytes % 10.8 %; Mean Corpuscular HGB Conc 30.9 g/dL (30.0-36.0); Mean Corpuscular Hemoglobin 28.6 pg (28.0-34.0); Mean Corpuscular Volume 92.5 fl (80-94); Mean Platelet Volume 10.6 fL (7.4-10.4); Monocytes # 0.2 10^3/uL (0.2-0.9); Monocytes % 3.8 %; Neutrophils # 4.47 10^3/uL (1.8-7.7); Nucleated Red Blood Cells % 0 %; Platelet Count 221 10^3/cmm (130-400); White Blood Count 5.3 10^3/uL (4.0-10.0)
[2022-05-22 03:56] LABS: Alanine Aminotransferase 10 U/L (0-41); Albumin Level 2.6 g/dL (3.5-5.2); Alkaline Phosphatase 57 U/L (40-130); Anion Gap 13.2 (5-19); Aspartate Amino Transferase 12 U/L (0-40); Blood Urea Nitrogen 6 mg/dL (8-23); Calcium 8.6 mg/dL (8.5-10.5); Carbon Dioxide 24 mmol/L (22-29); Chloride 98 mmol/L (98-107); Globulin 3.5 g/dL (1.3-4.6); Glomerular Filtration Rate 134.8 mL/min (90-130); Glucose 123 mg/dL (65-115); Osmolality Calculated 271 mOsm/kg (285-295); Potassium 4.2 mmol/L (3.5-5.1); Sodium 131 mmol/L (136-145); Total Bilirubin 0.3 mg/dL (0.15-1.2); Total Protein 6.1 g/dL (6.6-8.7)
[2022-05-22] MEDS: ferrous gluconate 324 mg Tablet PO ×2 (07:55→17:25)
[2022-05-22] MEDS: folic acid 1 mg Tablet PO (07:55)
[2022-05-22] MEDS: lisinopril 10 mg Tablet PO (07:55)
[2022-05-22] MEDS: cefTRIAXone 2,000 MG in sodium chloride 0.9% (plus) 50 ML 100 MG IV (07:56)
[2022-05-22] MEDS: pantoprazole 40 mg SDV IVP ×2 (07:56→20:11)
[2022-05-22] MEDS: thiamine 100 mg Tablet PO (07:56)
--- NOTE | 2022-05-22 08:06 | P.PN_ITS ---
Subjective Subjective: Patient seen and examined this morning. Patient doing well. No issues overnight. Seen evaluated by infectious disease and currently recommending IV antibiotics due to patient's bone cultures being positive. Will be on IV antibiotics for a total of 6 weeks. Incisional VAC on in place with good seal no output. Will plan to leave this on and in place for 1 week. He will need this at discharge. Vitals/I&O/Wt Last Vital Signs Temp 97.7 F 05/22/22 07:41 Pulse 76 05/22/22 07:41 Resp 16 05/22/22 07:41 BP 142/85 05/22/22 07:41 Pulse Ox 95 05/22/22 07:41 O2 Del Method 05/22/22 07:41 O2 Flow Rate 8 05/21/22 16:00 05/21/22 05/22/22 05/22/22 22:59 06:59 14:59 Intake Total 2130 / 2180 650 / 2830 Output Total 1125 / 1425 925 / 2350 Balance 1005 / 755 -275 / 480 Physical Exam Narrative: Examination: Examination limited secondary to splint. Incisional VAC on in place with good seal. No output. Anterior dorsiflexion blocking splint on in place. Splint is clean dry and intact. Toes are warm well perfused. Patient is able to wiggle toes. Brisk capillary refill less than 2 seconds. Data : 05/22/22 03:03 05/22/22 03:03 Micro: Microbiology 05/18/22 09:42 Gram Stain - Final Foot - Right Tissue Culture - Final Staphylococcus aureus A&P Assessment and plan (1) Acute osteomyelitis of right calcaneus: (2) Laceration of right Achilles tendon: (3) Wound of right foot: Plan Nonweightbearing right lower extremity Maintain splint until follow-up Keep incisional VAC on in place for 7 days postoperatively will see me in office to have this taken down IV antibiotics?bone cultures from initial surgery growing's Staphylococcus Infectious disease consulted and on board recommending discharge IV antibiotics and appreciate their recommendations Internal medicine is primary and appreciate their medical management DVT prophylaxis Pain control Patient is stable for discharge from orthopedic standpoint we will follow-up with me in office in 7 days. Attestations Medical Necessity Statement*: Patient requiring hospitalization for right heel wound with Achilles tendon rupture and acute osteomyelitis of the calcaneus. Coding Level of Care Code Acute Car Rental Agency Manager for Josias Mcclellan Diagnoses Acute osteomyelitis of right calcaneus M86.171 Laceration of right Achilles tendon S86.021A Wound of right foot S91.301A
[2022-05-22] MEDS: magnesium hydroxide 30 mL UDC PO (10:02)
--- NOTE | 2022-05-22 12:34 | XR_ITS ---
WS: [id number] XR chest 1V portable [id number] REASON FOR EXAM: Post PICC placement FINDINGS: Right arm PICC line placement with the tip in the superior vena cava. More optimal position could be obtained by advancement of the PICC line by 2 cm. Discussion of positioning was conducted over the phone at the time of placement. XR/XR chest 1V portable [id number] IMPRESSION: Right arm PICC line placement as above.
--- NOTE | 2022-05-22 12:38 | P.PN_ITS ---
Subjective Subjective: No acute events overnight. Patient tolerated the procedure. Awaiting PICC line placement today. Denies any nausea vomiting, headache. Has remained hemodynamically stable. Vitals/I&O/Wt Last Vital Signs Temp 98.0 F 05/22/22 11:42 Pulse 94 05/22/22 11:42 Resp 16 05/22/22 11:42 BP 164/87 05/22/22 11:42 Pulse Ox 99 05/22/22 11:42 O2 Del Method 05/22/22 11:42 O2 Flow Rate 8 05/21/22 16:00 05/21/22 05/22/22 05/22/22 22:59 06:59 14:59 Intake Total 2130 / 2180 650 / 2830 50 / 50 Output Total 1125 / 1425 925 / 2350 450 / 450 Balance 1005 / 755 -275 / 480 -400 / -400 Physical Exam Const: COMMON NORMALS: patient oriented x3 Resp: COMMON NORMALS: normal respiratory effort, No retractions, No use of accessory muscles and clear to auscultation bilaterally EFFORT & INSPECTION: Yes symmetric chest movement AUSCULTATION: clear to auscultation bilaterally Cardio: COMMON NORMALS: regular rate, regular rhythm, S1 normal heart sound present, S2 normal heart sound present, No gallops present (Cardio), No murmurs present (Cardio), No rub (Cardio) and Peripheral pulses 2+ throughout RATE: regular rate RHYTHM: regular rhythm HEART SOUNDS: S1 normal heart sound present and S2 normal heart sound present PERIPHERAL PULSES: Peripheral pulses 2+ throughout GI: COMMON NORMALS: Normal to inspection, nondistended, normoactive bowel sounds present, Soft to palpation, non-tender, No hepatosplenomegaly present and no masses AUSCULTATION: Yes normoactive bowel sounds PALPATION: Yes Soft to palpation and Yes No hepatosplenomegaly present RECTAL EXAM: Yes deferred Extremity: COMMON NORMALS: no clubbing, cyanosis or edema and no pedal edema NARRATIVE EXTREMITY EXAM: rt foot wound Neuro: COMMON NORMALS: patient oriented x3 Data : 05/22/22 03:03 05/22/22 03:03 Micro: Microbiology 05/18/22 09:42 Gram Stain - Final Foot - Right Tissue Culture - Final Staphylococcus aureus A&P Assessment and plan (1) Acute osteomyelitis of right calcaneus: Acute osteomyelitis of the calcaneal bone status post I&D. Wound culture revealing MSSA. Antibiotic changed as per ID. Changed to ceftriaxone. Plan for ceftriaxone 2 g IV daily for next 6 weeks. PICC line to be placed today. Orthopedics on board. Post primary closure. Wound VAC in place. Wound VAC, dressing changes as per orthopedics. Most likely patient will be discharged on wound VAC for next 1 week and follow- up with orthopedic as an outpatient. Appreciate orthopedics and ID recommendations. (2) Laceration of right Achilles tendon: (3) Wound of right foot: Post primary closure day 1. Wound VAC, dressing change, weightbearing as per orthopedics. (4) Hyponatremia: To dehydration versus chronic alcohol abuse. Baseline sodium seems to be around 1 32-1 35. Currently back to baseline. Continue with IV hydration. (5) Anemia: Could be secondary to combination of blood loss anemia secondary to OR along with iron deficiency. Severe iron deficiency anemia. Start on oral iron supplementation. Post monitor blood transfusion. Hemoglobin 7.7 today. Monitor hemoglobin daily for now. Stool for occult blood awaited. Protonix 40 mg twice daily for now. Qualifiers: Anemia type: iron deficiency Iron deficiency anemia type: inadequate dietary iron intake Qualified Code(s): D50.8 - Other iron deficiency anemias (6) Alcohol abuse: History of alcohol abuse. Monitor for alcohol withdrawal symptoms. If needed CILA protocol. Oral thiamine, folic acid. (7) Hypertension: Goal blood pressure less than 140/90 mmHg. Blood pressure is higher today. Restart lisinopril. Plan Analgesia: Tylenol as needed, morphine 1 mg every 4 hours as needed Glycemic control: Not needed Nutrition: Regular diet CODE STATUS: Full code PUD prophylaxis: Protonix every 12 hourly DVT prophylaxis: Continue Lovenox Discharge planning: SNF placement for further rehabitation and safety given nonweightbearing status along with IV antibiotic course for around 6 weeks for osteomyelitis. PICC line to be placed today. [facility]. This documentation was created by [employer] aws software development engineer software. Every effort was made to ensure accuracy of aws software development engineer. Any obvious errors or omissions should be clarified with the author of the document. Attestations Medical Necessity Statement*: Requires further hospitalization for management of osteomyelitis, post debridement and primary closure while PICC line placement and safe discharge planning for prolonged IV antibiotic course is sought. Time Spent in Patient Care: Greater than 35 minutes Coding Level of Care Code Acute Valve Setter for g Fwd Diagnoses Acute osteomyelitis of right calcaneus M86.171 Laceration of right Achilles tendon S86.021A Wound of right foot S91.301A Hyponatremia E87.1 Anemia D50.8 Anemia type: iron deficiency Iron deficiency anemia type: inadequate dietary iron intake Alcohol abuse F10.10 Hypertension I10
--- NOTE | 2022-05-22 14:27 | PC.NURSE ---
PICC advanced 2 cm [address] taped into place after discussion with radiologist.
[2022-05-22 15:55] LABS: SARS Covid-2 Antigen negative (Negative)
[2022-05-22] MEDS: sennosides-docusate Tablet 1 TAB PO (17:24)
[2022-05-22] MEDS: oxyCODONE 5 mg IR Tab/Cap PO (20:19)
[2022-05-22] MEDS: enoxaparin 40 mg/0.4 mL Syringe SUBCUT (22:39)
[2022-05-23] VITALS: BP 127/73; PULSE 67; RESP 17; TEMP 36.7; O2SAT 96
[2022-05-23 04:00] VITALS: BP 125/78; PULSE 72; RESP 17; TEMP 36.6; O2SAT 96
--- NOTE | 2022-05-23 04:49 | P.PN_ITS ---
Subjective Subjective: Infectious disease progress note. No acute interim events. Patient remains hemodynamically stable. Afebrile. Medications: Reviewed: Yes Vitals/I&O/Wt Last Vital Signs Temp 98.1 F 05/23/22 00:00 Pulse 67 05/23/22 00:00 Resp 17 05/23/22 00:00 BP 127/73 05/23/22 00:00 Pulse Ox 96 05/23/22 00:00 O2 Del Method 05/23/22 00:00 O2 Flow Rate 8 05/21/22 16:00 05/22/22 05/22/22 05/23/22 14:59 22:59 06:59 Intake Total 330 / 330 960 / 1290 Output Total 450 / 450 1200 / 1650 Balance -120 / -120 -240 / -360 Physical Exam Narrative: General: No acute distress, AO x3 HEENT: PERRLA, pupils bilaterally equal and reactive, pallors not present Chest: Normal vesicular breath sounds, no added sounds, equal good air entry bilaterally CVS: S1-S2 regular, no murmurs, no tachycardia, no gallops, no rubs Abdomen: Soft, nontender, no organomegaly, bowel sounds present Neuro: No focal deficits, no facial deformity, AO x3, power 5/5 in all limbs Extremities: Right foot with surgical dressing and wound VAC in place. Not opened for exam today Data : 05/22/22 03:03 05/22/22 03:03 Micro: Microbiology 05/18/22 02:45 Blood Culture - Final Blood NO GROWTH AFTER 5 DAYS 05/18/22 02:40 Blood Culture - Final Blood NO GROWTH AFTER 5 DAYS A&P Assessment and plan (1) Acute osteomyelitis of right calcaneus: Acute osteomyelitis of the calcaneal bone status post I&D on 05/18 and 05/21. Planned for Achilles tendon repair with implants down the line, defererd for now in view of acute osteomyelitis. Bone culture revealing MSSA. Continue ceftriaxone 2 g IV daily. Recommend treating patient with ceftriaxone 2 g IV daily at least over the next 6 weeks (05/18-06/29). Further treatment course to be decided based on clinical recovery and status of wound. PICC line placed to facilitate above duration of antibiotics. wound care, vac care per podiatry weekly labs incl CBC, Cr, LFT, CRP while on CTX, fax to ID clinic Pt planned for SNF placement F/up ID clinic on Jun 26, 2022 (2) Laceration of right Achilles tendon: Attestations Medical Necessity Statement*: per admitting Coding Level of Care Code Acute Licensed Practical Vocational Nurse for Josias Fwbutch Diagnoses Acute osteomyelitis of right calcaneus M86.171 Laceration of right Achilles tendon S86.021A
[2022-05-23] MEDS: cefTRIAXone 2,000 MG in sodium chloride 0.9% (plus) 50 ML 100 MG IV (05:07)
--- NOTE | 2022-05-23 07:44 | PC.NURSE ---
Bedside report received from DEBBIE Strong, at shift change.
--- NOTE | 2022-05-23 08:13 | P.DS_ITS ---
Discharge Providers Date of Admission: 05/18/22 01:54 Date of Discharge: May 23, 2022 Attending Provider at Admission: Chang Spencer MD Attending Provider at Discharge: Srinivas Hare MD Diagnoses at Discharge Discharge Diagnosis (1) Acute osteomyelitis of right calcaneus: Status: Acute (2) Laceration of right Achilles tendon: Status: Acute Reason for Visit Reason for Visit: Lower Extremity Injury Brief History: History as per HPI: Jem Coffey is a 66 year old male with past medical history of hypertension, alcohol use who presented to the emergency department overnight with complaint of right heel wound and concern for Achilles rupture.? Further history reveals patient sustained a laceration to his heel back roughly 4 to 6 weeks ago he states he is done nothing for it.? He thought it would heal on its own.? He states at that point time you has been mobilizing.? He states just yesterday he was walking in and felt his whole wound open up and lost his ability to plantarflex.? In the emergency department he was seen evaluated open wound and noted to have an Achilles laceration/avulsion at the insertion site with a large open wound at the calcaneus.? He was initially seen on 05/16/2022 at urgent care where he was seen evaluated referred to wound care and started on antibiotics.? Patient denies any fevers chills chest pain shortness of breath nausea or vomiting.? Patient denies smoking history or history of diabetes mellitus. Hospital Course Hospital Course Patient was admitted to hospital further evaluation and management. Orthopedics was consulted. He underwent I&D along with calcaneal bolt biopsy on 05/18 with wound VAC placement. He was started on broad-spectrum antibiotics. Patient worked well with physical therapy during hospitalization. His wound cultures came back positive for MSSA. Blood cultures remain negative. Eventually he underwent further I&D, primary closure of the wound and wound VAC placement on 05/21. ID was consulted and his antibiotics were tailored according to culture sensitivities. He tolerated IV ceftriaxone well. Hospitalization was complicated by him developing postoperative anemia for which he required to monitor blood transfusion. His hemoglobin has remained stable afterwards. Safe discharge plan were discussed in detail with patient and patient's family. They were agreeable for SNF placement for further rehabitation. He has been discharged hemodynamic stable condition to SNF on IV antibiotics for next 6 weeks. He has to have wound VAC present for at least 1 week or time he sees orthopedics surgeon in his office. Patient is to have repeat CBC and CMP weekly while on antibiotics. Physical Exam Const: COMMON NORMALS: patient oriented x3 Resp: COMMON NORMALS: normal respiratory effort, No retractions, No use of accessory muscles and clear to auscultation bilaterally EFFORT & INSPECTION: Yes symmetric chest movement AUSCULTATION: clear to auscultation bilaterally Cardio: COMMON NORMALS: regular rate, regular rhythm, S1 normal heart sound present, S2 normal heart sound present, No gallops present (Cardio), No murmurs present (Cardio), No rub (Cardio) and Peripheral pulses 2+ throughout RATE: regular rate RHYTHM: regular rhythm HEART SOUNDS: S1 normal heart sound present and S2 normal heart sound present PERIPHERAL PULSES: Peripheral pulses 2+ throughout GI: COMMON NORMALS: Normal to inspection, nondistended, normoactive bowel sounds present, Soft to palpation, non-tender, No hepatosplenomegaly present and no masses AUSCULTATION: Yes normoactive bowel sounds PALPATION: Yes Soft to palpation and Yes No hepatosplenomegaly present RECTAL EXAM: Yes deferred Extremity: COMMON NORMALS: no clubbing, cyanosis or edema and no pedal edema NARRATIVE EXTREMITY EXAM: rt foot wound Neuro: COMMON NORMALS: patient oriented x3 Discharge Data Studies Completed and Pending Completed Studies During Hospitalization Category Date Time Status XR chest 1V portable [id number] Routine Exams 05/22/22 12:34 Completed XR foot RT 2V [id number] Stat Exams 05/17/22 23:41 Completed Pending at discharge Category Date Time Status Occult Blood Stool [Immunochemical Fecal OCB] Routine Lab 05/19/22 09:33 Uncollected Radiology Impressions Foot X-Ray 05/17/22 23:41 IMPRESSION: 1. A deep laceration extends to the posterior surface of the right os calcis. 2. There are calcific densities seen in the soft tissues the dorsal surface of the os calcis. 3. An injury to the insertion of the Achilles tendon cannot be excluded. Chest X-Ray 05/22/22 12:34 IMPRESSION: Right arm PICC line placement as above. Microbiology 05/18/22 02:45 Blood Blood Culture - Final NO GROWTH AFTER 5 DAYS 05/18/22 02:40 Blood Blood Culture - Final NO GROWTH AFTER 5 DAYS 05/18/22 09:42 Foot - Right Gram Stain - Final 05/18/22 09:42 Foot - Right Tissue Culture - Final Staphylococcus aureus 05/19/22 10:40 Nose MRSA Culture - Final Laboratory Results WBC 5.3 10^3/uL (4.0-10.0) 05/22/22 03:03 RBC 2.80 10^6/uL (4.1-5.3) L 05/22/22 03:03 Hgb 8.0 g/dL (11.7-16.6) L 05/22/22 03:03 Hct 25.9 % (42.0-52.0) L 05/22/22 03:03 MCV 92.5 fl (80-94) 05/22/22 03:03 MCH 28.6 pg (28.0-34.0) 05/22/22 03:03 MCHC 30.9 g/dL (30.0-36.0) 05/22/22 03:03 RDW 17.0 % (12.1-15.1) H 05/22/22 03:03 Plt Count 221 10^3/cmm (130-400) 05/22/22 03:03 MPV 10.6 fL (7.4-10.4) H 05/22/22 03:03 Neut % (Auto) 85.0 % 05/22/22 03:03 Lymph % (Auto) 10.8 % 05/22/22 03:03 [place] % (Auto) 3.8 % 05/22/22 03:03 Eos % (Auto) 0.0 % 05/22/22 03:03 Baso % (Auto) 0.0 % 05/22/22 03:03 Neut # (Auto) 4.47 10^3/uL (1.8-7.7) 05/22/22 03:03 Lymph # (Auto) 0.6 10^3/uL (0.8-4.8) L 05/22/22 03:03 [place] # (Auto) 0.2 10^3/uL (0.2-0.9) 05/22/22 03:03 Eos # (Auto) 0.0 10^3/uL (0.0-0.8) 05/22/22 03:03 Baso # (Auto) 0.0 10^3/uL (0.0-0.1) 05/22/22 03:03 Nucleated RBC % (auto) 0 % 05/22/22 03:03 Nucleated RBCs # 0.0 /100WBC 05/22/22 03:03 ESR 30 mm/hr (0-10) H 05/17/22 23:50 PT 14.40 SECONDS (12.1-14.9) 05/17/22 23:55 INR 1.09 (0.8-1.2) 05/17/22 23:55 APTT 24.9 SECONDS (23.9-36.7) 05/17/22 23:55 Sodium 131 mmol/L (136-145) L 05/22/22 03:03 Potassium 4.2 mmol/L (3.5-5.1) 05/22/22 03:03 Chloride 98 mmol/L (98-107) 05/22/22 03:03 Carbon Dioxide 24 mmol/L (22-29) 05/22/22 03:03 Anion Gap 13.2 (5-19) 05/22/22 03:03 BUN 6 mg/dL (8-23) L 05/22/22 03:03 Creatinine 0.6 mg/dL (0.7-1.2) L 05/22/22 03:03 GFR Calculation 134.8 mL/min (90-130) H 05/22/22 03:03 Glucose 123 mg/dL (65-115) H 05/22/22 03:03 Estimat Average Glucose 91 05/20/22 02:25 Hemoglobin A1c 4.8 % (4.0-6.0) 05/20/22 02:25 Calculated Osmolality 271 mOsm/kg (285-295) L 05/22/22 03:03 Lactate 3.3 mmol/L (0.5-2.2) H 05/17/22 23:55 Calcium 8.6 mg/dL (8.5-10.5) 05/22/22 03:03 Iron 17 ug/dL (59-158) L 05/19/22 01:19 TIBC 190 mcg/dl 05/19/22 01:19 % Saturation 8.9 % (20-50) L 05/19/22 01:19 Unsat Iron Binding 173 ug/dL (112-347) 05/19/22 01:19 Total Bilirubin 0.3 mg/dL (0.15-1.2) 05/22/22 03:03 AST 12 U/L (0-40) 05/22/22 03:03 ALT 10 U/L (0-41) 05/22/22 03:03 Alkaline Phosphatase 57 U/L (40-130) 05/22/22 03:03 C-Reactive Protein 3.4 mg/L (0.0-4.9) 05/17/22 23:55 Total Protein 6.1 g/dL (6.6-8.7) L 05/22/22 03:03 Albumin 2.6 g/dL (3.5-5.2) L 05/22/22 03:03 Globulin 3.5 g/dL (1.3-4.6) 05/22/22 03:03 Triglycerides 56 mg/dL (0-150) 05/20/22 02:25 Cholesterol 75 mg/dL (0-200) 05/20/22 02:25 LDL Cholesterol, Calc 22 mg/dL (50-129) L 05/20/22 02:25 Total VLDL Cholesterol 11 mg/dL (0-30) 05/20/22 02:25 HDL Cholesterol 42 mg/dL (60-100) L 05/20/22 02:25 Cholesterol/HDL Ratio 1.79 mg/dL (1.0-5.00) 05/20/22 02:25 Vitamin B12 874 pg/mL (232-1245) 05/19/22 01:19 Folate 18.8 ng/mL (4.5-32.2) 05/19/22 01:19 TSH 1.11 uIU/mL (0.27-4.20) 05/19/22 01:19 Vancomycin Trough 14.2 ug/mL (10-15) 05/20/22 02:25 Ethyl Alcohol 92 mg/dL (0-10) H 05/17/22 23:55 SARS-CoV-2 Ag (Rapid) negative (Negative) 05/22/22 10:35 Blood Type O Positive 05/19/22 19:30 Rho(D) Type Positive 05/19/22 19:30 Antibody Screen Negative 05/19/22 19:30 Crossmatch See Detail 05/19/22 19:30 Procedures Performed 05/18: Right heel irrigation and debridement Bone cultures taken Right heel wound VAC placement Anterior plantar flexion splint applied short leg 10/05: Right heel wound irrigation and debridement and primary closure with incisional VAC placement Vitals Last Vital Signs Temp 97.9 F 05/23/22 04:00 Pulse 72 05/23/22 04:00 Resp 17 05/23/22 04:00 BP 125/78 05/23/22 04:00 Pulse Ox 96 05/23/22 04:00 O2 Del Method 05/23/22 04:00 O2 Flow Rate 8 05/21/22 16:00 Discharge Plan Discharge Patient Disposition: Xfer SNF Condition: Stable Prescriptions: New oxycodone 5 mg Tablet 5 mg PO Q4H PRN (Reason: Moderate To Severe Pain) 7 Days Qty: 28 0RF enoxaparin 40 mg/0.4 mL Syringe 40 mg SUBCUT Q24H 14 Days Qty: 5.6 0RF Multi-Day Plus Minerals 18 mg iron-400 mcg-25 mcg tablet 1 tab PO DAILY 90 Days Qty: 90 0RF ceftriaxone 2 gram recon soln 2 g IV DAILY 42 Days Qty: 40 0RF Continued metoprolol tartrate 25 mg tablet 25 mg PO BID atorvastatin 20 mg tablet 20 mg PO DAILY lisinopril 10 mg tablet 10 mg PO DAILY aspirin 81 mg Tablet,Chewable 81 mg PO DAILY Lasix 20 mg Tablet 20 mg PO DAILY PRN (Reason: Edema) vitamin B complex Capsule 1 cap PO DAILY Discontinued levofloxacin 750 mg tablet 750 mg PO DAILY 10 Days Qty: 10 0RF Discharge Orders: Discharge Order (Routine); Ordered 05/23/22 Ordered By: Srinivas Hare Referrals: [facility] [Provider Group] - 06/26/22 (Please call for a time) [facility] [Outside] Camilo Bella DO [Physician] - 05/29/22 9:45 am Discharge Diet: Regular Discharge Activity: Limit activity as instructed Patient Instructions: Oxycodone/Acetaminophen (By mouth), Ceftriaxone (By injection), Enoxaparin (By injection), Osteomyelitis (GEN), Opioid Safety Activity Restrictions/Additional Instructions: Orthopedic discharge instructions: Patient should be nonweightbearing to the right lower extremity Keep splint on in place and clean dry and intact Patient should leave incisional VAC on in place until follow-up Take IV antibiotics as prescribed per infectious disease Take pain medication as prescribed Take DVT (blood clot prevention) medication as prescribed Follow-up with Dr. Bella in office in 1 week for dressing takedown Please contact the office for any questions Please follow-up with ID clinic on June 26. While you are antibiotics you should have weekly CBC and CMP. Discharge Attestations Time Spent in Discharge Care*: greater than 30 min Specific Discharge Activities: educating patient, discussing with pcp/other providers, discussing with case management coordinator/social workers/dc planners, documenting/other paperwork and evaluating patient/reviewing data Status at Discharge: Cognitive status at discharge: cognitively intact , Behavioral status at discharge: cooperative , Functional status at discharge: uses cane/walker , Overall status at discharge: patient is progressing back to baseline Quality Metrics Clinical Quality Measures [ No reported AMI, CVA or VTE this stay] Coding Level of Care Code Acute Chg FW DC note History Comprehensive Exam Comprehensive Medical Decision Making High Complexity Diagnoses Acute osteomyelitis of right calcaneus M86.171 Laceration of right Achilles tendon S86.021A
[2022-05-23] MEDS: thiamine 100 mg Tablet PO (08:17)
[2022-05-23] MEDS: ferrous gluconate 324 mg Tablet PO (08:17)
[2022-05-23] MEDS: lisinopril 10 mg Tablet PO (08:18)
[2022-05-23] MEDS: sennosides-docusate Tablet 1 TAB PO (08:18)
[2022-05-23] MEDS: folic acid 1 mg Tablet PO (08:18)
[2022-05-23] MEDS: pantoprazole 40 mg SDV IVP (08:58)
--- NOTE | 2022-05-23 09:14 | PC.NURSE ---
Report called to DEBBIE Sanchez, at [facility].
[2022-05-23 09:51] VITALS: BP 150/80; PULSE 84; RESP 15; TEMP 36.6; O2SAT 98
--- NOTE | 2022-05-23 10:19 | PM.PN ---
Subjective Subjective: Patient seen and evaluated this morning. No acute events overnight. Patient has PICC line in place and set up with infectious disease for discharge IV antibiotics. He will have these for the next 4 weeks. Patient splint in place on the anterior aspect of the ankle to block dorsiflexion. We will reinforce with a posterior slab as well just for protection of patient's heel. Patient will plan for discharge today. Keep incisional VAC on in place until follow-up with me next week. Patient understands and agrees with current plan. All questions answered. Vitals/I&O/Wt Last Vital Signs Temp 97.9 F 05/23/22 09:51 Pulse 84 05/23/22 09:51 Resp 15 05/23/22 09:51 BP 150/80 05/23/22 09:51 Pulse Ox 98 05/23/22 09:51 O2 Del Method 05/23/22 09:51 O2 Flow Rate 8 05/21/22 16:00 05/22/22 05/23/22 05/23/22 22:59 06:59 14:59 Intake Total 960 / 1290 50 / 1340 500 / 500 Output Total 1200 / 1650 950 / 2600 500 / 500 Balance -240 / -360 -900 / -1260 0 / 0 Physical Exam Narrative: Examination limited secondary to splint. Splint on in place. Dressing clean dry and intact. Incisional VAC has good seal with no output. Patient toes are warm and perfused. He is able to wiggle his toes and endorses sensation intact light touch of the toes of the right lower extremity Data : 05/22/22 03:03 05/22/22 03:03 Micro: Microbiology 05/18/22 02:45 Blood Culture - Final Blood NO GROWTH AFTER 5 DAYS 05/18/22 02:40 Blood Culture - Final Blood NO GROWTH AFTER 5 DAYS A&P Assessment and plan (1) Acute osteomyelitis of right calcaneus: (2) Laceration of right Achilles tendon: (3) Wound of right foot: Plan Patient is 2 days status post repeat right heel wound irrigation and debridement with primary closure. Patient on bone cultures of initial surgery were positive and infectious disease on board sending home on IV antibiotics for 6 weeks. At this point time he understands we will hold on any type of Achilles tendon fixation. We will keep him been plantarflexed and reinforce the splint with a posterior slab as well. Keep incisional VAC on in place for 7 days postoperatively. He will see me next in office for dressing takedown and incision check. Patient understands he should be nonweightbearing to the right lower extremity is going to a shelter facility at discharge. He understands and agrees with current plan. All questions answered. Stable for discharge from orthopedic standpoint. Attestations Medical Necessity Statement*: Right heel wound with Achilles tendon rupture and was found to have acute osteomyelitis of the calcaneus. Requiring hospitalization IV antibiotics Coding Level of Care Code Acute Health Services Manager for [facility] Fwd Diagnoses Acute osteomyelitis of right calcaneus M86.171 Laceration of right Achilles tendon S86.021A Wound of right foot S91.301A
--- NOTE | 2022-05-23 10:34 | PC.SOCIAL ---
IMM update IMM updated with patient. Verbalized an understanding. Copy PG 2 provided. Initialled, dated, timed, and placed in chart.
--- NOTE | 2022-05-23 11:45 | SUR.OPER ---
This nurse talked with the patients girlfriend on the phone at bedside while on speaker with the patient to inform them of the pending discharge today. All questions answered, patient and girlfriend both were understanding of the current plan.
[2022-05-23 12:22] VITALS: BP 127/72; PULSE 86; RESP 15; TEMP 37.1; O2SAT 97
[2022-05-23 14:46] VITALS: BP 127/72; PULSE 86; RESP 15; TEMP 37.1; O2SAT 97
--- NOTE | 2022-05-23 14:48 | PC.NURSE ---
Patient left via wheelchair with [facility] staff, all of the patient's belongings were with him at this time.
== END 2022-05-23 14:30 | disposition skilled nursing facility (03) | DRG 478 ==
LOC: ER 05-18 01:13 → MEDSURG 05-18 04:23
PROVIDERS: Student in an Organized Health Care Education/Training Program; Admitting Provider Internal Medicine; Emergency Provider Emergency Medicine; Visit Provider Student in an Organized Health Care Education/Training Program
PROC: 0QBL0ZX Excision of Right Tarsal, Open Approach, Diagnostic (ICD-10-PCS; principal; 2022-05-18 10:00)
PROC: 0QBL0ZZ Excision of Right Tarsal, Open Approach (ICD-10-PCS; principal; 2022-05-21 12:30)
DX: S86.021A Laceration of right Achilles tendon, initial encounter (principal); D62 Acute posthemorrhagic anemia; M86.171 Other acute osteomyelitis, right ankle and foot; D50.8 Other iron deficiency anemias; W26.8XXA Contact with other sharp object(s), not elsewhere classified, initial encounter; B95.61 Methicillin susceptible Staphylococcus aureus infection as the cause of diseases classified elsewhere; I10 Essential (primary) hypertension; F17.200 Nicotine dependence, unspecified, uncomplicated; F10.10 Alcohol abuse, uncomplicated; E78.5 Hyperlipidemia, unspecified; Z79.82 Long term (current) use of aspirin; Z86.73 Personal history of transient ischemic attack (TIA), and cerebral infarction without residual deficits
CPT/HCPCS: 36415; 36430; 36569; 71045; 73620; 80048; 80053; 80061; 80202; 80307; 82607; 82746; 83036; 83540; 83550; 83605; 84443; 85014; 85018; 85025; 85610; 85651; 85730; 86140; 86850; 86900; 86920; 87040; 87070; 87077; 87176; 87186; 87205; 87426; 87641; 96365; 96366; 96367; 96372; 97110; 97162; 97167; 97530; 97535; 99285; C9113; J0696; J1100; J1200; J1650; J2405; J2543; J2704; J2710; J3010; J3370; J3490; J7030; J7050; P9016

== ENCOUNTER 2022-05-29 18:19 | Outpatient (CLI) | payer MEDICARE, SELFPAY ==
[2022-05-29 18:38] LABS: Basophils # 0.1 10^3/uL (0.0-0.1); Basophils % 0.5 %; Eosinophils # 0.3 10^3/uL (0.0-0.8); Eosinophils % 2.6 %; Hematocrit 26.1 % (42.0-52.0); Hemoglobin 8.1 g/dL (11.7-16.6); Lymphocytes # 1.2 10^3/uL (0.8-4.8); Lymphocytes % 12.7 %; Mean Corpuscular Hemoglobin 28.2 pg (28.0-34.0); Mean Corpuscular Volume 90.9 fl (80-94); Mean Platelet Volume 10.8 fL (7.4-10.4); Monocytes # 0.9 10^3/uL (0.2-0.9); Monocytes % 9.6 %; Neutrophils # 7.05 10^3/uL (1.8-7.7); Neutrophils % 74.2 %; Nucleated Red Blood Cells % 0 %; Platelet Count 298 10^3/cmm (130-400); Red Blood Count 2.87 10^6/uL (4.1-5.3); Red Cell Distribution Width 17.2 % (12.1-15.1); White Blood Count 9.5 10^3/uL (4.0-10.0)
== END 2022-05-29 18:20 | disposition home or self-care (01) ==
LOC: LAB 18:22
PROVIDERS: PCP Family Medicine; Visit Provider Family Medicine
DX: Z01.89 Encounter for other specified special examinations (principal)
CPT/HCPCS: 85025; 99024

== ENCOUNTER → 2022-06-12 10:27 | Outpatient (BNVA) | payer MEDICARE, SELFPAY | PROVIDERS: PCP Family Medicine; Visit Provider Student in an Organized Health Care Education/Training Program | DX: X58.XXXA Exposure to other specified factors, initial encounter (principal); Y83.8 Other surgical procedures as the cause of abnormal reaction of the patient, or of later complication, without mention of misadventure at the time of the procedure; S86.021A Laceration of right Achilles tendon, initial encounter; T81.30XA Disruption of wound, unspecified, initial encounter; M86.171 Other acute osteomyelitis, right ankle and foot | CPT/HCPCS: 99024 ==

== ENCOUNTER → 2022-06-20 10:00 | Day surgery (SDC) | payer MEDICARE, SELFPAY ==
--- NOTE | 2022-06-20 10:08 | XR_ITS ---
WS: [id number] Exam: XR chest 1V portable [id number] Date/Time of Exam: 06/20/2022 10:46 AM Reason For Exam: Post PICC insertion Comparison 05/22/2022. A left-sided PICC line has been placed and ends in the lower one third of the SVC in good position. T he lungs are clear and fully inflated as visualized. Normal cardiomediastinal silhouette. Several old bilateral rib fractures. XR/XR chest 1V portable [id number] IMPRESSION: 1. Left-sided PICC line appears to end in the lower one third of the SVC in goo d position. 2. No acute cardiopulmonary finding.
[2022-06-20 10:10] VITALS: BP 110/54; PULSE 56; RESP 18; TEMP 36.4; O2SAT 96
--- NOTE | 2022-06-20 11:10 | PC.NURSE ---
Pt to GI infusions for replacement of PICC line. [facility]. Single lumen PICC replaced to left basilic vein. Pt tolerated well.
== END ==
LOC: GILAB 10:02
PROVIDERS: PCP Family Medicine; Visit Provider Family Medicine
DX: M86.171 Other acute osteomyelitis, right ankle and foot (principal)
CPT/HCPCS: 36569; 71045

== ENCOUNTER → 2022-06-24 08:57 | Outpatient (BNVA) | payer MEDICARE, BC, SELFPAY | PROVIDERS: PCP Nurse Practitioner Family; Visit Provider Student in an Organized Health Care Education/Training Program | DX: Z09 Encounter for follow-up examination after completed treatment for conditions other than malignant neoplasm (principal); S86.021A Laceration of right Achilles tendon, initial encounter; M86.171 Other acute osteomyelitis, right ankle and foot; X58.XXXA Exposure to other specified factors, initial encounter | CPT/HCPCS: 99204; 99213 ==

== ENCOUNTER → 2022-06-26 13:48 | Outpatient (BNVA) | payer MEDICARE, SELFPAY | PROVIDERS: PCP Nurse Practitioner Family; Visit Provider Student in an Organized Health Care Education/Training Program | DX: Y83.8 Other surgical procedures as the cause of abnormal reaction of the patient, or of later complication, without mention of misadventure at the time of the procedure (principal); T81.30XA Disruption of wound, unspecified, initial encounter; M86.171 Other acute osteomyelitis, right ankle and foot | CPT/HCPCS: 99024 ==

== ENCOUNTER 2022-06-27 06:22 | Outpatient (CLI) | payer OTHER, SELFPAY ==
[2022-06-27 06:41] LABS: Basophils % 0.6 %; Eosinophils # 0.4 10^3/uL (0.0-0.8); Eosinophils % 6.6 %; Hematocrit 24.4 % (42.0-52.0); Hemoglobin 7.5 g/dL (11.7-16.6); Lymphocytes % 15.4 %; Mean Corpuscular HGB Conc 30.7 g/dL (30.0-36.0); Mean Corpuscular Hemoglobin 25.3 pg (28.0-34.0); Mean Corpuscular Volume 82.4 fl (80-94); Mean Platelet Volume 11.2 fL (7.4-10.4); Monocytes # 0.9 10^3/uL (0.2-0.9); Monocytes % 13.7 %; Neutrophils # 4.11 10^3/uL (1.8-7.7); Neutrophils % 63.4 %; Nucleated Red Blood Cells % 0 %; Platelet Count 292 10^3/cmm (130-400); Red Blood Count 2.96 10^6/uL (4.1-5.3); Red Cell Distribution Width 17.5 % (12.1-15.1); White Blood Count 6.5 10^3/uL (4.0-10.0)
== END 2022-06-27 06:23 | disposition home or self-care (01) ==
PROVIDERS: PCP Nurse Practitioner Family; Visit Provider Family Medicine
DX: M86.171 Other acute osteomyelitis, right ankle and foot (principal)
CPT/HCPCS: 85025

== ENCOUNTER 2022-07-02 08:06 | Outpatient (RCR) | payer OTHER, SELFPAY ==
[2022-07-01 13:05] LABS: Hematocrit 24.9 % (42.0-52.0); Hemoglobin 7.7 g/dL (11.7-16.6)
[2022-07-02] VITALS (9 sets, daily range): BP systolic 105–142; BP diastolic 48–75; PULSE 55–63; RESP 18; TEMP 36.3–36.7; O2SAT 94–100
[2022-07-02] MEDS: sodium chloride 0.9% (100 ml) 100 ML 10 ML ×2 (08:15→10:19)
--- NOTE | 2022-07-02 12:00 | PC.NURSE ---
Pt to GI infusions for 2 units PRBC's for Hg 7.7. Tolerated both units without difficulty. Left PICC flushed with saline following transfusion. Pt back to [facility] via transportation
== END 2022-07-16 23:59 | disposition home or self-care (01) ==
LOC: GILAB 08:06
PROVIDERS: PCP Nurse Practitioner Family; Visit Provider Nurse Practitioner Family
DX: D64.9 Anemia, unspecified (principal)
CPT/HCPCS: 36430; 85014; 85018; 86850; 86900; 86920; P9016

== ENCOUNTER → 2022-08-14 13:40 | Outpatient (BNVA) | payer MEDICARE, SELFPAY | PROVIDERS: PCP Nurse Practitioner Family; Visit Provider Student in an Organized Health Care Education/Training Program | DX: M86.171 Other acute osteomyelitis, right ankle and foot (principal); T81.30XA Disruption of wound, unspecified, initial encounter; Y83.8 Other surgical procedures as the cause of abnormal reaction of the patient, or of later complication, without mention of misadventure at the time of the procedure; S86.021A Laceration of right Achilles tendon, initial encounter; S91.301A Unspecified open wound, right foot, initial encounter; X58.XXXA Exposure to other specified factors, initial encounter | CPT/HCPCS: 99024 ==

== ENCOUNTER → 2022-08-21 13:07 | Outpatient (BNVA) | payer MEDICARE, SELFPAY | PROVIDERS: PCP Nurse Practitioner Family; Visit Provider Thoracic Surgery (Cardiothoracic Vascular Surgery) | DX: I96 Gangrene, not elsewhere classified (principal); L97.419 Non-pressure chronic ulcer of right heel and midfoot with unspecified severity ==

== ENCOUNTER → 2022-08-28 14:57 | Outpatient (BNVA) | payer MEDICARE, SELFPAY | PROVIDERS: PCP Nurse Practitioner Family; Visit Provider Thoracic Surgery (Cardiothoracic Vascular Surgery) | DX: L97.419 Non-pressure chronic ulcer of right heel and midfoot with unspecified severity (principal); M86.18 Other acute osteomyelitis, other site ==

== ENCOUNTER → 2022-09-03 08:02 | Outpatient (BNVA) | payer MEDICARE, BC, SELFPAY | PROVIDERS: PCP Nurse Practitioner Family; Visit Provider Thoracic Surgery (Cardiothoracic Vascular Surgery) | DX: I96 Gangrene, not elsewhere classified (principal); L97.312 Non-pressure chronic ulcer of right ankle with fat layer exposed; M86.171 Other acute osteomyelitis, right ankle and foot | CPT/HCPCS: 11042; 99213; A6210 ==

== ENCOUNTER → 2022-09-24 08:53 | Outpatient (BNVA) | payer MEDICARE, SELFPAY | PROVIDERS: PCP Nurse Practitioner Family; Visit Provider Thoracic Surgery (Cardiothoracic Vascular Surgery) | DX: M86.18 Other acute osteomyelitis, other site (principal); I96 Gangrene, not elsewhere classified; L97.412 Non-pressure chronic ulcer of right heel and midfoot with fat layer exposed | CPT/HCPCS: 99212 ==

== ENCOUNTER → 2022-10-13 13:38 | Outpatient (BNVA) | payer MEDICARE, BC, SELFPAY | PROVIDERS: PCP Nurse Practitioner Family; Visit Provider Student in an Organized Health Care Education/Training Program | DX: M86.171 Other acute osteomyelitis, right ankle and foot (principal); T81.30XA Disruption of wound, unspecified, initial encounter; S86.021A Laceration of right Achilles tendon, initial encounter; Y83.8 Other surgical procedures as the cause of abnormal reaction of the patient, or of later complication, without mention of misadventure at the time of the procedure; X58.XXXA Exposure to other specified factors, initial encounter | CPT/HCPCS: 99213 ==

== ENCOUNTER → 2022-10-16 12:58 | Outpatient (BNVA) | payer MEDICARE, BC, SELFPAY | PROVIDERS: PCP Nurse Practitioner Family; Visit Provider Student in an Organized Health Care Education/Training Program | DX: M86.171 Other acute osteomyelitis, right ankle and foot (principal); T81.30XA Disruption of wound, unspecified, initial encounter; B35.3 Tinea pedis; X58.XXXA Exposure to other specified factors, initial encounter | CPT/HCPCS: 99214 ==

== ENCOUNTER 2023-01-10 16:41 | Inpatient (IN) | payer MEDICARE, BC, SELFPAY ==
[2023-01-10] VITALS (10 sets, daily range): BP systolic 87–119; BP diastolic 53–84; PULSE 77–96; RESP 14–24; TEMP 36.6; O2SAT 79–100; BMI 25.0; BMI 27.1
--- NOTE | 2023-01-10 16:51 | CTR_ITS ---
PROCEDURE INFORMATION: Exam: CT Maxillofacial Without Contrast Exam date and time: 01/10/2023 5:09 PM Age: 67 years old Clinical indication: Injury or trauma; Fall; Blunt trauma (contusions or hematomas); Head/scalp and forehead and nose; Loss of consciousness not known; Additional info: Fall trauma TECHNIQUE: Imaging protocol: Computed tomography of the face without contrast. Radiation optimization: All CT scans at this facility use at least one of these dose optimization techniques: automated exposure control; mA and/or kV adjustment per patient size (includes targeted exams where dose is matched to clinical indication); or iterative reconstruction. REPORTING DATA: Count of CT and Cardiac NM exams in prior 12 months: This patient has received 0 known CTs and 0 known cardiac nuclear medicine studies in the 12 months prior to the current study. COMPARISON: MR head wo/w con [id number] 01/18/2018 9:24 AM RADIATION DOSE METRICS: Total DLP (mGy-cm): 657.5 FINDINGS: Orbital cavities: Orbits are normal. Globes are unremarkable. Bones/joints: There are degenerative changes across the temporomandibular joints. Paranasal sinuses: Normal. No air-fluid levels. Soft tissues: Right frontal and right periorbital soft tissue hematoma. Vasculature: Multi-vessel atherosclerotic disease. CT/CT facial bones wo con* [id number] IMPRESSION: Right and right periorbital soft tissue hematoma. No for acute fracture.
--- NOTE | 2023-01-10 16:51 | ECG_ITS ---
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 Measurements Intervals [place] Rate: 90 P: 87 DC: 206 QRS: 57 QRSD: 110 T: 103 QT: 407 QTc: 500 Interpretive Statements SINUS RHYTHM LOW QRS VOLTAGE IN EXTREMITY LEADS [QRS DEFLECTION < 0.5 mV IN LIMB LEADS] Compared to ECG 01/14/2018 19:26:44 Low QRS voltage now present Myocardial infarct finding no longer present Electronically Signed On 01-10-2023 17:30:49 CDT by Hina Polanco M.D. [email or web address]
--- NOTE | 2023-01-10 16:51 | CTR_ITS ---
PROCEDURE INFORMATION: Exam: CT Head Without Contrast Exam date and time: 01/10/2023 5:09 PM Age: 67 years old Clinical indication: Injury or trauma; Fall; Blunt trauma (contusions or hematomas); Additional info: Fall trauma TECHNIQUE: Imaging protocol: Computed tomography of the head without contrast. Radiation optimization: All CT scans at this facility use at least one of these dose optimization techniques: automated exposure control; mA and/or kV adjustment per patient size (includes targeted exams where dose is matched to clinical indication); or iterative reconstruction. REPORTING DATA: Count of CT and Cardiac NM exams in prior 12 months: This patient has received 0 known CTs and 0 known cardiac nuclear medicine studies in the 12 months prior to the current study. COMPARISON: MR head wo/w con [id number] 01/18/2018 9:24 AM RADIATION DOSE METRICS: Total DLP (mGy-cm): 1267.4 FINDINGS: Brain: Moderate generalized cerebral atrophy.Periventricular and subcortical white matter low densities are present which at this age likely represent microvascular ischemic change. There are chronic lacunar infarcts in the thalami, internal/external capsules, and basal ganglia.No evidence for large acute ischemic infarction. Please note acute ischemia can be occult by head CT. Calcified plaque is present within the intracranial vasculature. Cerebral ventricles: No ventriculomegaly. Paranasal sinuses: Visualized sinuses are unremarkable. No fluid levels. Mastoid air cells: Visualized mastoid air cells are well aerated. Bones/joints: Unremarkable. No acute fracture. Soft tissues: Right frontal and right periorbital soft tissue hematoma. CT/CT head wo con* [id number] IMPRESSION: 1. There is right frontal and right periorbital soft tissue hematoma. No evidence for acute intracranial injury. 2. There are senescent changes of the brain as described above. No evidence for large acute ischemic infarction or acute intracranial injury.
--- NOTE | 2023-01-10 16:51 | XRR_ITS ---
PROCEDURE INFORMATION: Exam: XR Chest Exam date and time: 01/10/2023 5:03 PM Age: 67 years old Clinical indication: Other: Hypotension TECHNIQUE: Imaging protocol: Radiologic exam of the chest. Views: 1 view. COMPARISON: CR XR chest 1V portable [id number] 06/20/2022 10:48 AM FINDINGS: Lungs: Unremarkable. No consolidation. Pleural spaces: Unremarkable. No pleural effusion. No pneumothorax. Heart/Mediastinum: Unremarkable. No cardiomegaly. Vasculature: Is calcified plaque in the aortic arch similar to the prior study. Bones/joints: Chronic/healed fracture through the posterior aspect of the right 4th rib, similar to the prior study. XR/XR chest 1V portable [id number] IMPRESSION: No evidence for acute cardiopulmonary disease.
--- NOTE | 2023-01-10 17:02 | ED_ITS ---
Documented by User: Duy Hicks DO 01/10/23 17:30 HPI - Fall General: Chief Complaint: Fall Stated Complaint: FALL-PROLONGED DOWN TIME Time Seen by Provider: 01/10/23 16:47 History of Present Illness: Patient arrives to the ER by EMS with reports of a fall and found on the ground. Patient was down all night long. Patient states his head was in between the toilet and the wall and his legs were splayed in opposite directions. Patient says he had 2 or 3 beers last night before he fell, denies any loss of consciousness patient does complain of mild right hip pain complaint: fall Onset (ago): hour(s) (Last night) Fall from: standing Fall witnessed: no Place fall occurred: home Loss of consciousness: None Prolonged down time: yes Symptoms prior to fall: none Context: alcohol use Location of injury: face and pelvis Quality: aching Review of Systems General: Reports: 10 or more systems reviewed and unremarkable except in HPI and below PFSH ED PFSH: Medical History Alcohol abuse Anemia CVA (cerebral vascular accident) Hypertension Laceration of right Achilles tendon Wound dehiscence Family History Other CAD (coronary artery disease) Social History Smoking and tobacco status: never smoked Physical Exam Const: COMMON NORMALS: no acute distress, average body habitus, patient oriented x3, no limitations, healthy appearing, alert and well nourished HENMT: COMMON NORMALS: hearing grossly normal bilaterally, external ears normal, Normal external nose present and moist oral mucous membranes NOSE: Normal external nose present EXTERNAL EAR: Yes external ears normal OTHER: Patient has mild abrasions and hematoma to the right side of the face. No crepitus no bleeding noted Eye: COMMON NORMALS: Equal, round and reactive pupils present, EOMs intact fabiola aterally, conjunctivae normal and no scleral icterus CONJUNCTIVA: Yes con junctivae normal PUPIL: Yes Equal, round and reactive pupils present Neck/C-Spine: COMMON NORMALS: full ROM, no lymphadenopathy, supple, no meningeal signs, no JVD and Thyroid normal THYROID: Thyroid normal Chest: COMMONS NORMALS: normal inspection of the chest and normal palpation of entire chest wall Resp: COMMON NORMALS: normal respiratory effort, No retractions, No use of accessory muscles and clear to auscultation bilaterally AUSCULTATION: clear to auscultation bilaterally Cardio: COMMON NORMALS: no JVD, regular rate, regular rhythm, S1 normal heart sound present, S2 normal heart sound present, No gallops present (Cardio), No clicks present (Cardio) and No murmurs present (Cardio) RATE: regular rate RHYTHM: regular rhythm HEART SOUNDS: S1 normal heart sound present and S2 normal heart sound present GI: COMMON NORMALS: Normal to inspection, nondistended, normoactive bowel sounds present, Soft to palpation, non-tender, No hepatosplenomegaly present and no masses PALPATION: Yes Soft to palpation and Yes No hepatosplenomegaly present : COMMON NORMALS: Yes no CVA tenderness BLADDER/KIDNEY EXAM: Yes no CVA tenderness Back/Pelvis: COMMON NORMALS: no CVA tenderness OTHER: Minimal tenderness to palpation over right lateral hip region Neuro: COMMON NORMALS: patient oriented x3 SENSORIUM/ORIENTATION: Yes alert MENINGEAL SIGNS: Yes no meningeal signs Course Vital Signs: Vital signs: Vital Signs Temperature 97.9 F 01/10/23 16:45 Pulse Rate 95 01/10/23 18:41 Respiratory Rate 16 01/10/23 18:41 Blood Pressure 117/78 01/10/23 18:41 Pulse Oximetry 96 01/10/23 18:41 Oxygen Delivery Me thod Room Air 01/10/23 18:41 MDM - Fall Differential Diagnosis Likely concussion without loss of consciousness; Unlikely syncope, dislocation of shoulder region, fracture of wrist, compression fracture or concussion with loss of consciousness Medical Records I reviewed the patient's medical records. Lab Data I reviewed the patient's lab results. 01/10/23 17:36 01/10/23 17:36 Radiology Impressions Chest X-Ray 01/10/23 16:51 IMPRESSION: No evidence for acute cardiopulmonary disease. Face CT 01/10/23 16:51 IMPRESSION: Right and right periorbital soft tissue hematoma. No for acute fracture. Head CT 01/10/23 16:51 IMPRESSION: 1. There is right frontal and right periorbital soft tissue hematoma. No evidence for acute intracranial injury. 2. There are senescent changes of the brain as described above. No evidence for large acute ischemic infarction or acute intracranial injury. Hip/Pelvis X-Ray 01/10/23 17:03 IMPRESSION: No evidence for acute fracture. Abdomen/Pelvis CT 01/10/23 18:12 IMPRESSION: 1. Subtle hazy stranding in the right upper quadrant omentum may represent small vessel injury or a nonspecific mesenteritis. 2. Chronic severe compression fracture of the L2 vertebra and chronic appearing fracture through the lateral aspect of the left 11th rib. No acute fractures seen. Laboratory Results WBC 12.6 10^3/uL (4.0-10.0) H 01/10/23 17:36 RBC 4.76 10^6/uL (4.1-5.3) 01/10/23 17:36 Hgb 12.6 g/dL (11.7-16.6) 01/10/23 17:36 Hct 39.0 % (42.0-52.0) L 01/10/23 17:36 MCV 81.9 fl (80-94) 01/10/23 17:36 MCH 26.5 pg (28.0-34.0) L 01/10/23 17:36 MCHC 32.3 g/dL (30.0-36.0) 01/10/23 17:36 RDW 19.3 % (12.1-15.1) H 01/10/23 17:36 Plt Count 233 10^3/cmm (130-400) 01/10/23 17:36 MPV 9.8 fL (7.4-10.4) 01/10/23 17:36 Neut % (Auto) 87.3 % 01/10/23 17:36 Lymph % (Auto) 4.1 % 01/10/23 17:36 [place] % (Auto) 7.7 % 01/10/23 17:36 Eos % (Auto) 0.1 % 01/10/23 17:36 Baso % (Auto) 0.2 % 01/10/23 17:36 Neut # (Auto) 11.05 10^3/uL (1.8-7.7) H 01/10/23 17:36 Lymph # (Auto) 0.5 10^3/uL (0.8-4.8) L 01/10/23 17:36 [place] # (Auto) 1.0 10^3/uL (0.2-0.9) H 01/10/23 17:36 Eos # (Auto) 0.0 10^3/uL (0.0-0.8) 01/10/23 17:36 Baso # (Auto) 0.0 10^3/uL (0.0-0.1) 01/10/23 17:36 Nucleated RBC % (auto) 0 % 01/10/23 17:36 Nucleated RBCs # 0.0 /100WBC 01/10/23 17:36 Sodium 121 mmol/L (136-145) L 01/10/23 17:36 Potassium 5.4 mmol/L (3.5-5.1) H 01/10/23 17:36 Chloride 86 mmol/L (98-107) L 01/10/23 17:36 Carbon Dioxide 12 mmol/L (22-29) L 01/10/23 17:36 Anion Gap 28.4 (5-19) H 01/10/23 17:36 BUN 7 mg/dL (8-23) L 01/10/23 17:36 Creatinine 0.8 mg/dL (0.7-1.2) 01/10/23 17:36 GFR Calculation 96.4 mL/min (90-130) 01/10/23 17:36 Glucose 123 mg/dL (65-115) H 01/10/23 17:36 Calculated Osmolality 251 mOsm/kg (285-295) L 01/10/23 17:36 Calcium 8.6 mg/dL (8.5-10.5) 01/10/23 17:36 Magnesium 1.8 mg/dL (1.7-2.3) 01/10/23 17:36 Total Bilirubin 0.5 mg/dL (0.15-1.2) 01/10/23 17:36 AST 207 U/L (0-40) H 01/10/23 17:36 ALT 84 U/L (0-41) H 01/10/23 17:36 Alkaline Phosphatase 106 U/L (40-130) 01/10/23 17:36 Creatine Kinase 67851 U/L (39-308) H* 01/10/23 17:36 Total Protein 7.9 g/dL (6.6-8.7) 01/10/23 17:36 Albumin 3.9 g/dL (3.5-5.2) 01/10/23 17:36 Globulin 4.0 g/dL (1.3-4.6) 01/10/23 17:36 Urine Color Yellow (Yellow) 01/10/23 17:29 Urine Appearance Hazy (CLEAR) A 01/10/23 17:29 Urine pH 5 (5-7) 01/10/23 17:29 Ur Specific [place] 1.015 (1.005-1.030) 01/10/23 17:29 Urine Protein 1+ (Negative) H 01/10/23 17:29 Urine Glucose (UA) Norm (Normal) 01/10/23 17: Urine Ketones Negative (Negative) 01/10/23 17: Urine Blood 3+ (Negative) H 01/10/23 17: Urine Nitrate Negative (Negative) 01/10/23 17:29 Urine Bilirubin Neg (Negative) 01/10/23 17: Urine Urobilinogen Norm mg/dL (Negative) 01/10/23 17:29 Ur Leukocyte Esterase Negative (Negative) 01/10/23 17:29 Urine RBC 0-4 /hpf (0-2) H 01/10/23 17:29 Urine WBC 0-4 /hpf (0-5) H 01/10/23 17:29 Ur Squamous Epith Cells 5-10 /hpf (0-5) H 01/10/23 17:29 Amorphous Sediment Not Reportable 01/10/23 17:29 Urine Bacteria 1+ /hpf (NONE) H 01/10/23 17:29 Ethyl Alcohol 50 mg/dL (0-10) H 01/10/23 17:36 EKG Data EKG 1: I personally reviewed and interpreted this EKG as follows: EKG interpretation date: 01/10/23 EKG interpretation time: 17:26 Prior EKG tracings: not available for review Interpretation: EKG showed ventricular rate of 90 bpm, SD interval 206, QRS duration 110, QTc 455, normal sinus rhythm no ST-T wave changes Discharge Plan Discharge Patient Disposition: Admitted As Inpatient Clinical Impression: Rhabdomyolysis, Hyponatremia Condition: Stable Coding Level of Care Code ED Foundry Process Engineer for Chg Fwd Documented by User: Ben Parish MD 01/10/23 19:05 HPI - Fall General: Chief Complaint: Fall Stated Complaint: FALL-PROLONGED DOWN TIME Time Seen by Provider: 01/10/23 16:47 PFSH ED PFSH: Medical History Alcohol abuse Anemia CVA (cerebral vascular accident) Hypertension Laceration of right Achilles tendon Wound dehiscence Family History Other CAD (coronary artery disease) Social History Smoking and tobacco status: never smoked Course Vital Signs: Vital signs: Vital Signs Temperature 97.9 F 01/10/23 16:45 Pulse Rate 95 01/10/23 18:41 Respiratory Rate 16 01/10/23 18:41 Blood Pressure 117/78 01/10/23 18:41 Pulse Oximetry 96 01/10/23 18:41 Oxygen Delivery Me thod Room Air 01/10/23 18:41 MDM - Fall Medical Decision Making Patient presents after a fall down for some time he does have a rhabdomyolysis from being down CK is 12,000 he has a hyponatremia as well. Spoke to the hospitalist and will admit to the ICU at this time. Lab Data 01/10/23 17:36 01/10/23 17:36 Radiology Impressions Chest X-Ray 01/10/23 16:51 IMPRESSION: No evidence for acute cardiopulmonary disease. Face CT 01/10/23 16:51 IMPRESSION: Right and right periorbital soft tissue hematoma. No for acute fracture. Head CT 01/10/23 16:51 IMPRESSION: 1. There is right frontal and right periorbital soft tissue hematoma. No evidence for acute intracranial injury. 2. There are senescent changes of the brain as described above. No evidence for large acute ischemic infarction or acute intracranial injury. Hip/Pelvis X-Ray 01/10/23 17:03 IMPRESSION: No evidence for acute fracture. Abdomen/Pelvis CT 01/10/23 18:12 IMPRESSION: 1. Subtle hazy stranding in the right upper quadrant omentum may represent small vessel injury or a nonspecific mesenteritis. 2. Chronic severe compression fracture of the L2 vertebra and chronic appearing fracture through the lateral aspect of the left 11th rib. No acute fractures seen. Laboratory Results WBC 12.6 10^3/uL (4.0-10.0) H 01/10/23 17:36 RBC 4.76 10^6/uL (4.1-5.3) 01/10/23 17:36 Hgb 12.6 g/dL (11.7-16.6) 01/10/23 17:36 Hct 39.0 % (42.0-52.0) L 01/10/23 17:36 MCV 81.9 fl (80-94) 01/10/23 17:36 MCH 26.5 pg (28.0-34.0) L 01/10/23 17:36 MCHC 32.3 g/dL (30.0-36.0) 01/10/23 17:36 RDW 19.3 % (12.1-15.1) H 01/10/23 17:36 Plt Count 233 10^3/cmm (130-400) 01/10/23 17:36 MPV 9.8 fL (7.4-10.4) 01/10/23 17:36 Neut % (Auto) 87.3 % 01/10/23 17:36 Lymph % (Auto) 4.1 % 01/10/23 17:36 [place] % (Auto) 7.7 % 01/10/23 17:36 Eos % (Auto) 0.1 % 01/10/23 17:36 Baso % (Auto) 0.2 % 01/10/23 17:36 Neut # (Auto) 11.05 10^3/uL (1.8-7.7) H 01/10/23 17:36 Lymph # (Auto) 0.5 10^3/uL (0.8-4.8) L 01/10/23 17:36 [place] # (Auto) 1.0 10^3/uL (0.2-0.9) H 01/10/23 17:36 Eos # (Auto) 0.0 10^3/uL (0.0-0.8) 01/10/23 17:36 Baso # (Auto) 0.0 10^3/uL (0.0-0.1) 01/10/23 17:36 Nucleated RBC % (auto) 0 % 01/10/23 17:36 Nucleated RBCs # 0.0 /100WBC 01/10/23 17:36 Sodium 121 mmol/L (136-145) L 01/10/23 17:36 Potassium 5.4 mmol/L (3.5-5.1) H 01/10/23 17:36 Chloride 86 mmol/L (98-107) L 01/10/23 17:36 Carbon Dioxide 12 mmol/L (22-29) L 01/10/23 17:36 Anion Gap 28.4 (5-19) H 01/10/23 17:36 BUN 7 mg/dL (8-23) L 01/10/23 17:36 Creatinine 0.8 mg/dL (0.7-1.2) 01/10/23 17:36 GFR Calculation 96.4 mL/min (90-130) 01/10/23 17:36 Glucose 123 mg/dL (65-115) H 01/10/23 17:36 Calculated Osmolality 251 mOsm/kg (285-295) L 01/10/23 17:36 Calcium 8.6 mg/dL (8.5-10.5) 01/10/23 17:36 Magnesium 1.8 mg/dL (1.7-2.3) 01/10/23 17:36 Total Bilirubin 0.5 mg/dL (0.15-1.2) 01/10/23 17:36 AST 207 U/L (0-40) H 01/10/23 17:36 ALT 84 U/L (0-41) H 01/10/23 17:36 Alkaline Phosphatase 106 U/L (40-130) 01/10/23 17:36 Creatine Kinase 37223 U/L (39-308) H* 01/10/23 17:36 Total Protein 7.9 g/dL (6.6-8.7) 01/10/23 17:36 Albumin 3.9 g/dL (3.5-5.2) 01/10/23 17:36 Globulin 4.0 g/dL (1.3-4.6) 01/10/23 17:36 Urine Color Yellow (Yellow) 01/10/23 17:29 Urine Appearance Hazy (CLEAR) A 01/10/23 17: Urine pH 5 (5-7) 01/10/23 17: Ur Specific [place] 1.015 (1.005-1.030) 01/10/23 17: Urine Protein 1+ (Negative) H 01/10/23 17:29 Urine Glucose (UA) Norm (Normal) 01/10/23 17: Urine Ketones Negative (Negative) 01/10/23 17: Urine Blood 3+ (Negative) H 01/10/23 17: Urine Nitrate Negative (Negative) 01/10/23 17: Urine Bilirubin Neg (Negative) 01/10/23 17: Urine Urobilinogen Norm mg/dL (Negative) 01/10/23 17: Ur Leukocyte Esterase Negative (Negative) 01/10/23 17: Urine RBC 0-4 /hpf (0-2) H 01/10/23 17: Urine WBC 0-4 /hpf (0-5) H 01/10/23 17: Ur Squamous Epith Cells 5-10 /hpf (0-5) H 01/10/23 17: Amorphous Sediment Not Reportable 01/10/23 17: Urine Bacteria 1+ /hpf (NONE) H 01/10/23 17: Ethyl Alcohol 50 mg/dL (0-10) H 01/10/23 17:36 Critical Care Time Critical Care Time: Critical Care Time: Yes Total Critical Care Time: 40 Attestation: The high probability of a clinically significant, sudden or life threatening d eterioration of the patient's endocrine system(s) required my full and direct attention, intervention and personal management. The critical care time is as shown. This time is in addition to time spent performing any reported procedures but includes the following: [x] Data and vital sign review and interpretation [x] Patient assessment, examination and intervention [x] Documentation [x] Medication orders and management Discharge Plan Discharge Patient Disposition: Admitted As Inpatient Clinical Impression: Rhabdomyolysis, Hyponatremia Condition: Stable Coding Level of Care Code ED Foundry Process Engineer for Josias Mcclellan
[2023-01-10] MEDS: sodium chloride 0.9% 1,000 ML 999 ML IV (17:03)
--- NOTE | 2023-01-10 17:03 | XRR_ITS ---
PROCEDURE INFORMATION: Exam: XR Right Hip Exam date and time: 01/10/2023 5:07 PM Age: 67 years old Clinical indication: Injury or trauma; Fall; Other: Pain TECHNIQUE: Imaging protocol: Radiologic exam of the right hip. Views: 1 view hip with pelvis when performed. COMPARISON: MR lumbar spine wo con* [id number] 01/16/2018 11:01 AM FINDINGS: Bones/joints: There are small marginal osteophytes at the superolateral aspect of the right acetabulum across the right hip joint. Soft tissues: Unremarkable. Vasculature: There are peripheral vascular calcifications. XR/XR hip RT 2-3V wo/w pel* [id number] IMPRESSION: No evidence for acute fracture.
[2023-01-10 17:42] LABS: Basophils % 0.2 %; Eosinophils % 0.1 %; Hemoglobin 12.6 g/dL (11.7-16.6); Lymphocytes # 0.5 10^3/uL (0.8-4.8); Lymphocytes % 4.1 %; Mean Corpuscular HGB Conc 32.3 g/dL (30.0-36.0); Mean Corpuscular Hemoglobin 26.5 pg (28.0-34.0); Mean Corpuscular Volume 81.9 fl (80-94); Mean Platelet Volume 9.8 fL (7.4-10.4); Monocytes % 7.7 %; Neutrophils # 11.05 10^3/uL (1.8-7.7); Neutrophils % 87.3 %; Nucleated Red Blood Cells % 0 %; Platelet Count 233 10^3/cmm (130-400); Red Blood Count 4.76 10^6/uL (4.1-5.3); Red Cell Distribution Width 19.3 % (12.1-15.1); White Blood Count 12.6 10^3/uL (4.0-10.0)
[2023-01-10 18:08] LABS: Bilirubin Urine Neg (Negative); Blood Urine 3+ (Negative); Glucose Urine UA Norm (Normal); Ketones Urine Negative (Negative); Leukocyte Esterase Urine Negative (Negative); Nitrate Urine Negative (Negative); Protein Urine 1+ (Negative); Specific Gravity, Urine 1.015 (1.005-1.030); Urine Appearance Hazy (CLEAR); Urine Color Yellow (Yellow); Urobilinogen Urine Norm (Negative); pH Urine 5 (5-7)
[2023-01-10 18:09] LABS: Add Urine Microscopic? YES; RBC Urine 0-4 /hpf (0-2); WBC Urine 0-4 /hpf (0-5)
[2023-01-10 18:10] LABS: Alanine Aminotransferase 84 U/L (0-41); Albumin Level 3.9 g/dL (3.5-5.2); Alcohol Level 50 mg/dL (0-10); Alkaline Phosphatase 106 U/L (40-130); Anion Gap 28.4 (5-19); Aspartate Amino Transferase 207 U/L (0-40); Blood Urea Nitrogen 7 mg/dL (8-23); Calcium 8.6 mg/dL (8.5-10.5); Carbon Dioxide 12 mmol/L (22-29); Chloride 86 mmol/L (98-107); Glomerular Filtration Rate 96.4 mL/min (90-130); Glucose 123 mg/dL (65-115); Magnesium 1.8 mg/dL (1.7-2.3); Osmolality Calculated 251 mOsm/kg (285-295); Potassium 5.4 mmol/L (3.5-5.1); Sodium 121 mmol/L (136-145); Total Bilirubin 0.5 mg/dL (0.15-1.2); Total Protein 7.9 g/dL (6.6-8.7)
[2023-01-10 18:10] LABS: Add Urine Culture? No; Bacteria Urine 1+ /hpf
--- NOTE | 2023-01-10 18:12 | CTR_ITS ---
PROCEDURE INFORMATION: Exam: CT Abdomen And Pelvis With Contrast Exam date and time: 01/10/2023 6:24 PM Age: 67 years old Clinical indication: Injury or trauma; Fall; Blunt; Generalized TECHNIQUE: Imaging protocol: Computed tomography of the abdomen and pelvis with contrast. Radiation optimization: All CT scans at this facility use at least one of these dose optimization techniques: automated exposure control; mA and/or kV adjustment per patient size (includes targeted exams where dose is matched to clinical indication); or iterative reconstruction. Contrast material: OMNI 350; Contrast volume: 100 ml; Contrast route: INTRAVENOUS (IV); REPORTING DATA: Count of CT and Cardiac NM exams in prior 12 months: This patient has received 0 known CTs and 0 known cardiac nuclear medicine studies in the 12 months prior to the current study. COMPARISON: CR (PELVIS, ) 01/10/2023 5:07 PM RADIATION DOSE METRICS: Total DLP (mGy-cm): 792.03 FINDINGS: Liver: Normal. No mass. Gallbladder and bile ducts: Normal. No calcified stones. No ductal dilation. Pancreas: Normal. No ductal dilation. Spleen: Normal. No splenomegaly. Adrenal glands: Normal. No mass. Kidneys and ureters: Normal. No hydronephrosis. Stomach and bowel: Unremarkable. No obstruction. No mucosal thickening. Appendix: No evidence of appendicitis. Intraperitoneal space: There is hazy stranding in the right upper quadrant omentum best on the coronal series 6 images 10 and 11. Vasculature: Unremarkable. No abdominal aortic aneurysm. Lymph nodes: Unremarkable. No enlarged lymph nodes. Urinary bladder: Unremarkable as visualized. Reproductive: Unremarkable as visualized. Bones/joints: There are degenerative changes across the hip joints. Degenerative changes are present in the visualized spine. Chronic appearing severe compression fracture of the L2 vertebra. Contour abnormality at the lateral aspect of the left 11th rib has the appearance of a chronic fracture site as well. No associated soft tissue changes are seen. Soft tissues: See Bones/joints finding. CT/CT abdomen pelvis w con* [id number] IMPRESSION: 1. Subtle hazy stranding in the right upper quadrant omentum may represent small vessel injury or a nonspecific mesenteritis. 2. Chronic severe compression fracture of the L2 vertebra and chronic appearing fracture through the lateral aspect of the left 11th rib. No acute fractures seen.
[2023-01-10] MEDS: iohexol 350 mg/mL 500 mL Btl (per mL) IV (18:27)
[2023-01-10 18:28] LABS: Creatine Phosphokinase 12197 U/L (39-308)
--- NOTE | 2023-01-10 20:16 | PM.HP ---
Providers/Chief Complaint Admitting Physician: Fabienne Hernandez MD Primary Care Provider: Luciano Maya MD Chief Complaint: FALL-PROLONGED DOWN TIME History of Present Illness Jem Coffey is a 67 year old male with past medical history of alcohol abuse, anemia, stroke, hypertension, laceration of right Achilles tendon status post repair presented to the hospital today after a fall which was mechanical in nature. He states he went to the bathroom and tripped beside the toilet ended up falling down and hitting his head on the toilet rim. He states that his legs were in opposite directions and he was unable to get up. He states he did have beer last night before he fell. Did not pass out. Did not have any nausea vomiting or lightheadedness preceding to the fall. He believes it was a purely mechanical fall in nature. He also has some mild knee pain on the right side and has swelling on right knee and left knee. He does not have a life alert bracelet. He lives alone at home. He was found there by his friend and therefore was brought to the hospital. He was on the ground the whole night and in the morning is when he was found by his friend. Denies chest pain, shortness of breath or any other symptoms at this time. He does state that he has lower extremity edema lately and he takes Lasix for it however does not know his dose. On arrival to ED 117/78, respirate 16, pulse 95, temperature 97.9, saturating 96% on room air. WBC 12.6, hemoglobin 12.6, sodium 121, potassium 5.4, chloride 86, bicarb 12, BUN 7, glucose 123. Chest x-ray shows no evidence of acute cardiopulmonary disease, face CT shows right and left periorbital soft tissue hematoma no acute fracture. CT head shows right frontal and right periorbital soft tissue hematoma no evidence for acute intracranial injury. Hip pelvis x-ray shows no evidence for acute fracture. Abdomen pelvis CT shows subtle hazy stranding in the right upper quadrant omental meters and small vessel injury or nonspecific mesenteritis. Chronic severe compression fracture of L2 vertebra and chronic appearing fractures to lateral aspect of left 11th rib. No acute fracture seen. CPK 12,000. Medications/Allergies Home Medications Medication Instructions Recorded Confirmed Last Taken Type metoprolol tartrate 25 mg tablet 25 mg PO BID 05/16/22 10/16/22 07/01/22 History aspirin 81 mg chewable tablet 81 mg PO DAILY 05/18/22 10/16/22 07/01/22 History atorvastatin 20 mg tablet 20 mg PO DAILY 05/18/22 10/16/22 07/01/22 History furosemide 20 mg tablet (Lasix) 20 mg PO DAILY PRN Edema 05/18/22 10/16/22 07/01/22 History lisinopril 10 mg tablet 10 mg PO DAILY 05/18/22 10/16/22 07/01/22 History vitamin B complex 1 cap PO DAILY 05/18/22 10/16/22 07/01/22 History CAM Boot #1 ea 07/17/22 10/16/22 Unknown Rx clotrimazole 1 % topical cream 1 applic topical BID 4 weeks #90 10/16/22 10/16/22 Unknown Rx (Antifungal (clotrimazole)) grams nystatin 100,000 unit/gram topical 1 applic topical DAILY #60 grams 10/16/22 10/16/22 Unknown Rx powder pantoprazole 20 mg tablet,delayed 20 mg PO DAILY 10/16/22 10/16/22 Unknown History release Allergies Allergy/AdvReac Type Severity Reaction Status Date / Time Sulfa (Sulfonamide Allergy Intermediate Unknown Verified 01/10/23 16:54 Antibiotics) PFSH Acute PFSH: Medical History Alcohol abuse Anemia CVA (cerebral vascular accident) Hypertension Laceration of right Achilles tendon Wound dehiscence Family History Other CAD (coronary artery disease) Social History Smoking and tobacco status: never smoked Vitals/I&O/Wt Last Vital Signs Temp 97.9 F 01/10/23 16:45 Pulse 88 01/10/23 20:08 Resp 18 01/10/23 20:08 BP 113/82 01/10/23 20:08 Pulse Ox 92 01/10/23 20:08 O2 Del Method Room Air 01/10/23 18:41 01/10/23 01/10/23 01/10/23 06:59 14:59 22:59 Intake Total 1000 / 1000 Balance 1000 / 1000 Weight last 48 hrs Weight 88.451 kg Physical Exam Narrative: General: Alert oriented x3, patient seen in bed appearing comfortable at this time. No acute distress. HEENT: Normocephalic, atraumatic, EOMI, breathing room air. Cardio: Regular rate rhythm, normal S1-S2 Respiratory: Diminished bilateral air entry GI: Abdomen soft, nontender, bowel sounds + Extremities: Right knee significantly swollen with a laceration present. Left knee also has a bruise her patellar region. 1+ edema bilateral lower extremities. Strong peripheral pulses. Data 01/10/23 17:36 01/10/23 17:36 A&P Assessment and plan (1) Rhabdomyolysis: (2) Hyponatremia: (3) Anemia: Qualifiers: Anemia type: iron deficiency Iron deficiency anemia type: inadequate dietary iron intake Qualified Code(s): D50.8 - Other iron deficiency anemias (4) Alcohol abuse: (5) Hyponatremia: (6) Hypertension: Plan #Rhabdomyolysis #High anion gap metabolic acidosis #Myoglobinuria/hematuria #Hyponatremia #Hyperkalemia #Fall, mechanical #History of stroke #Hypertension #Alcohol abuse ? CPK 12,000. ? Trend CPK daily ? Potassium 5.4. Sodium 121. ? Check urine sodium, urine, serum osmolality ? Patient does seem to have a history of hyponatremia. He has been as low as 124 in the past. Possible SIADH component. We will correct sodium slowly. I do not see any salt tablets on home medications. At this time there can be component of prerenal cause as well. ? Recheck BMP in 4 hours. Goal correction no more than 68 and 20 for her. ? Recheck stat BMP now to get baseline status ? Consider nephrology consult ? Place on bicarb drip @ 100 cc/hr. Monitor sodium q4 -Hold Lasix at this time. ? Continue metoprolol 25 twice daily ? Hold lisinopril ? Continue aspirin, atorvastatin -PT OT prior to discharge Full code SCDs, will hold off on pharmacological DVT prophylaxis at this time Attestations Medical Necessity Statement*: Greater than 2 midnight stay for management of rhabdomyolysis Coding Level of Care Code G0425 (30 min) TH Encounter Time (min): 45 Patient seen via Telehealth in the acute care setting (hospital or ED location) by agreement and consent of patient or patient quality assurance representative. Telehealth technology used during the visit includes video and audio. This patient encounter is appropriate and reasonable under the circumstances given the patient?s particular presentation at this time. The patient has been advised of the potential risks and limitations of this mode of treatment (including but not limited to the absence of in-person examination at this time) and has agreed to be treated by an off-site physician for this visit. If deemed clinically necessary from this telehealth visit, or if condition or consent for telehealth visit changes, an in-person visit will be arranged. For this encounter, total time for the origination of telehealth care on this date is as shown. Diagnoses Rhabdomyolysis M62.82 Hyponatremia E87.1 Anemia D50.8 Anemia type: iron deficiency Iron deficiency anemia type: inadequate dietary iron intake Alcohol abuse F10.10 Hypertension I10
[2023-01-10] MEDS: acetaminophen 325 mg Tablet 650 MG PO (21:33)
[2023-01-10] MEDS: sodium chloride 0.9% 1,000 ML 150 ML IV (21:33)
[2023-01-10 22:21] LABS: Base Excess VBG -9.1 mmol/L (-3.0-3.0); Blood Gas Sample Site Not specified; Blood Gas Sample Type Venous; HCO3 VBG 15.4 mmol/L (24-28); Oxygen Device NC; PCO2 VBG 29.1 mmHg (41-51); Venous Blood Gas Hematocrit 41.9 % (42-52); pH VBG 7.33 (7.32-7.42)
[2023-01-10] MEDS: sodium bicarbonate 150 MEQ in dextrose 5% 1,000 ML 100 MEQ IV (22:33)
[2023-01-10 23:07] LABS: Anion Gap 22.1 (5-19); Blood Urea Nitrogen 8 mg/dL (8-23); Calcium 8.9 mg/dL (8.5-10.5); Carbon Dioxide 16 mmol/L (22-29); Chloride 88 mmol/L (98-107); Glomerular Filtration Rate 96.4 mL/min (90-130); Glucose 108 mg/dL (65-115); Osmolality Calculated 249 mOsm/kg (285-295); Potassium 6.1 mmol/L (3.5-5.1); Sodium 120 mmol/L (136-145)
[2023-01-10] MEDS: calcium gluconate 0.1 gm/mL 10% SDV 10mL 1 GM IVP (23:36)
[2023-01-10] MEDS: insulin regular-human 10 UNIT in SYRINGE 1 EACH 300 UNIT IVP (23:40)
[2023-01-10] MEDS: lactated ringers 1,000 ML 125 ML IV (23:42)
[2023-01-11] VITALS (24 sets, daily range): BP systolic 88–122; BP diastolic 57–86; PULSE 67–114; RESP 15–25; TEMP 36.6–37.1; O2SAT 81–100; BMI 27.1
[2023-01-11 00:23] LABS: Phosphorus 4.4 mg/dL (2.5-4.5)
[2023-01-11 01:04] LABS: Urine Random Sodium 16 mmol/L
--- NOTE | 2023-01-11 02:38 | P.CONIM_ITS ---
Providers/Reason For Consult Consulting Physician/Specialty*: Fanta Castro DO, telenephrology Reason for Consult*: Acute kidney injury Requesting Physician: Fabienne Hernandez MD Attending Physician: Fabienne Hernandez MD Primary Care Provider: Luciano Maya MD History of Present Illness History of Present Illness Jem Coffey is a 67 year old male presented to hospital after fall at home. was on floor in bathroom overnight. Reports he was taking furosemide for leg edema and KCL. Also on ACEi. Reports diffuse muscle aches, especially legs and bilateral knee pain RN reports legs were initially cool, now warm Medications/Allergies Home Medications Medication Instructions Recorded Confirmed Last Taken Type metoprolol tartrate 25 mg tablet 25 mg PO BID 05/16/22 10/16/22 07/01/22 History aspirin 81 mg chewable tablet 81 mg PO DAILY 05/18/22 10/16/22 07/01/22 History atorvastatin 20 mg tablet 20 mg PO DAILY 05/18/22 10/16/22 07/01/22 History furosemide 20 mg tablet (Lasix) 20 mg PO DAILY PRN Edema 05/18/22 10/16/22 07/01/22 History lisinopril 10 mg tablet 10 mg PO DAILY 05/18/22 10/16/22 07/01/22 History vitamin B complex 1 cap PO DAILY 05/18/22 10/16/22 07/01/22 History CAM Boot #1 ea 07/17/22 10/16/22 Unknown Rx clotrimazole 1 % topical cream 1 applic topical BID 4 weeks #90 10/16/22 10/16/22 Unknown Rx (Antifungal (clotrimazole)) grams nystatin 100,000 unit/gram topical 1 applic topical DAILY #60 grams 10/16/22 10/16/22 Unknown Rx powder pantoprazole 20 mg tablet,delayed 20 mg PO DAILY 10/16/22 10/16/22 Unknown History release Allergies Allergy/AdvReac Type Severity Reaction Status Date / Time Sulfa (Sulfonamide Allergy Intermediate Unknown Verified 01/10/23 16:54 Antibiotics) Current Medications Generic Name Dose Route Start Last Admin Trade Name Freq PRN Reason Stop Dose Admin Acetaminophen 650 mg 01/10/23 20:22 01/10/23 21:33 Acetaminophen 325 Mg Tablet PO 650 mg Q6H PRN Administration MILD PAIN Lactated Ringer's 1,000 mls @ 125 mls/hr 01/10/23 23:15 01/10/23 23:42 Lactated Ringers IV 125 mls/hr .Q8H LIZETH Administration PFSH Acute PFSH: Medical History Alcohol abuse Anemia CVA (cerebral vascular accident) Hypertension Laceration of right Achilles tendon Wound dehiscence Family History Other CAD (coronary artery disease) Social History Smoking and tobacco status: never smoked Vitals/I&O/Wt Last Vital Signs Temp 97.9 F 01/11/23 00:00 Pulse 88 01/11/23 01:00 Resp 18 01/11/23 01:00 BP 122/86 01/11/23 01:00 Pulse Ox 98 01/11/23 01:00 O2 Del Method Room Air 01/11/23 00:00 01/10/23 01/10/23 01/11/23 14:59 22:59 06:59 Intake Total 1135 / 1135 195.1 / 1330.1 Balance 1135 / 1135 195.1 / 1330.1 urine output 400 ml/ 7 hrs urine browm Weight last 48 hrs Weight 95.7 kg Weight 88.451 kg Physical Exam Const: COMMON NORMALS: no acute distress and alert Extremity: NARRATIVE EXTREMITY EXAM: trace edema bilateral knee abrasions Neuro: SENSORIUM/ORIENTATION: Yes alert Urinary Catheter Management: Lenz: Cath Placed During This Visit: yes Urinary Catheter Date of Insertion: 01/10/23 Urinary Catheter Time of Insertion: 21:30 Data 01/10/23 17:36 01/10/23 22:10 Other Labs: venous pH 7.33 Calcium 8.4, phos 4.4, Mg 1.8 calculate osmolality including ETOH, 263, measured 249 urinalysis 1+ protein, 3+ blood, 0-4RBC CK 30,708 CT Abd/Pel: Radiologist's impression: with contrast: Adrenal glands: Normal. No mass. Kidneys and ureters: Normal. No hydronephrosis. Other data: seen via telemedicine with assistance of RN at bedside A&P Assessment and plan (1) Rhabdomyolysis: Plan 1. Rhabdomyolysis 2. Hyperkalemia 3. Metabolic acidosis, high AG, improving 4. Acute kidney injury, nonoliguric 5. Hyponatremia. Chronic, now worse 6. Fall Recommend: agree with IVF hydration, change from LR to NSS, treat potassium with kayexylate, D50, insulin. check lactate level serial CK Consult Attestations Medical Necessity Statement: see above Time Spent in Patient Care: Greater than 35 minutes Coding Level of Care Code Acute Code for [facility] Diagnoses Rhabdomyolysis M62.82
[2023-01-11] MEDS: sodium chloride 0.9% 1,000 ML 150 ML IV ×3 (03:36→19:48)
[2023-01-11] MEDS: insulin regular-human 10 UNIT in SYRINGE 1 EACH 300 UNIT IVP (04:04)
[2023-01-11] MEDS: sodium polystyrene sulfonate 15 gm/60 mL Btl 30 GM PO (04:07)
[2023-01-11 04:29] LABS: Hematocrit 34.8 % (42.0-52.0); Hemoglobin 11.5 g/dL (11.7-16.6); Lymphocytes # 0.4 10^3/uL (0.8-4.8); Lymphocytes % 6.7 %; Mean Corpuscular Hemoglobin 25.8 pg (28.0-34.0); Mean Corpuscular Volume 78.2 fl (80-94); Mean Platelet Volume 10.5 fL (7.4-10.4); Monocytes # 0.1 10^3/uL (0.2-0.9); Monocytes % 1.1 %; Neutrophils # 4.97 10^3/uL (1.8-7.7); Neutrophils % 91.8 %; Nucleated Red Blood Cells % 0 %; Platelet Count 174 10^3/cmm (130-400); Red Blood Count 4.45 10^6/uL (4.1-5.3); Red Cell Distribution Width 18.8 % (12.1-15.1); White Blood Count 5.4 10^3/uL (4.0-10.0)
[2023-01-11 04:59] LABS: Anion Gap 18.1 (5-19); Blood Urea Nitrogen 9 mg/dL (8-23); Calcium 8.2 mg/dL (8.5-10.5); Carbon Dioxide 19 mmol/L (22-29); Chloride 86 mmol/L (98-107); Glomerular Filtration Rate 96.4 mL/min (90-130); Glucose 258 mg/dL (65-115); Magnesium 1.5 mg/dL (1.7-2.3); Osmolality Calculated 254 mOsm/kg (285-295); Potassium 5.1 mmol/L (3.5-5.1)
[2023-01-11 05:05] LABS: Sodium 118 mmol/L (136-145)
[2023-01-11] MEDS: sodium chloride 3% 100 ML in empty flexible container 1 EACH 200 ML IV ×2 (08:11→18:31)
[2023-01-11] MEDS: pantoprazole DR 40 mg Tablet 20 MG PO (08:52)
[2023-01-11] MEDS: aspirin 81 mg Chew Tablet PO (08:52)
[2023-01-11] MEDS: atorvastatin 40 mg Tablet PO (08:52)
[2023-01-11] MEDS: metoprolol tartrate 25 mg Tablet PO ×2 (08:52→17:05)
[2023-01-11] MEDS: thiamine 100 mg Tablet PO (08:52)
[2023-01-11] MEDS: multivitamin therapeutic Tablet 1 TAB PO (08:53)
[2023-01-11] MEDS: folic acid 1 mg Tablet PO (08:53)
[2023-01-11] MEDS: sodium bicarbonate 650 mg Tablet PO ×3 (08:53→21:14)
[2023-01-11 10:02] LABS: Blood Urea Nitrogen 10 mg/dL (8-23); Calcium 8.1 mg/dL (8.5-10.5); Carbon Dioxide 17 mmol/L (22-29); Chloride 91 mmol/L (98-107); Glomerular Filtration Rate 112.5 mL/min (90-130); Glucose 125 mg/dL (65-115); Osmolality Calculated 257 mOsm/kg (285-295); Sodium 123 mmol/L (136-145)
[2023-01-11 10:03] LABS: Anion Gap 19.4 (5-19); Potassium 4.4 mmol/L (3.5-5.1)
[2023-01-11 12:29] LABS: Anion Gap 15.5 (5-19); Blood Urea Nitrogen 12 mg/dL (8-23); Calcium 8.3 mg/dL (8.5-10.5); Carbon Dioxide 21 mmol/L (22-29); Chloride 90 mmol/L (98-107); Glomerular Filtration Rate 96.4 mL/min (90-130); Glucose 135 mg/dL (65-115); Osmolality Calculated 256 mOsm/kg (285-295); Potassium 4.5 mmol/L (3.5-5.1); Sodium 122 mmol/L (136-145)
--- NOTE | 2023-01-11 14:50 | P.PN_ITS ---
Subjective Subjective: Patient was seen this morning, he is alert and awake, reports that he daily drinks beer, denies drinking any hard liquor, denies any alcohol withdrawal with a history of denies blacking out, he is not sure how much alcohol he had last night, he does report back pain, denies any other joint pains, no headache, blurry vision, no nausea, no vomiting, patient tells me that when he fell he was on the floor for over 24 hours Vitals/I&O/Wt Last Vital Signs Temp 97.9 F 01/11/23 00:00 Pulse 75 01/11/23 13:00 Resp 20 H 01/11/23 13:00 BP 88/63 01/11/23 13:00 Pulse Ox 100 01/11/23 12:00 O2 Del Method Room Air 01/11/23 00:00 01/10/23 01/11/23 01/11/23 22:59 06:59 14:59 Intake Total 1135 / 1135 1232.7 / 2367.7 1800 / 1800 Output Total 475 / 475 Balance 1135 / 1135 757.7 / 1892.7 1800 / 1800 Weight last 48 hrs Weight 95.7 kg Weight 95.7 kg Weight 88.451 kg Physical Exam Const: COMMON NORMALS: no acute distress and patient oriented x3 Resp: COMMON NORMALS: normal respiratory effort, No retractions, No use of accessory muscles and clear to auscultation bilaterally AUSCULTATION: clear to auscultation bilaterally Cardio: COMMON NORMALS: regular rate, regular rhythm, S1 normal heart sound present and S2 normal heart sound present RATE: regular rate RHYTHM: regular rhythm HEART SOUNDS: S1 normal heart sound present and S2 normal heart sound present GI: COMMON NORMALS: Normal to inspection, nondistended, normoactive bowel sounds present and non-tender Extremity: COMMON NORMALS: no pedal edema Neuro: COMMON NORMALS: patient oriented x3 Psych: COMMON NORMALS: mental status grossly normal Urinary Catheter Management: Lenz: Cath Placed During This Visit: yes Reason for Continuing Indwelling Catheter: Accurate Measurement of Urinary Output in Critically Ill Patients Urinary Catheter Date of Insertion: 01/10/23 Urinary Catheter Time of Insertion: 21:30 Data 01/11/23 04:17 01/11/23 12:05 A&P Assessment and plan (1) Rhabdomyolysis: (2) Hyponatremia: (3) Anemia: Qualifiers: Anemia type: iron deficiency Iron deficiency anemia type: inadequate dietary iron intake Qualified Code(s): D50.8 - Other iron deficiency anemias (4) Alcohol abuse: (5) Hyponatremia: (6) Hypertension: (7) Alcohol withdrawal: (8) Elevated lactic acid level: (9) Compression fracture of L2: (10) Rib fracture: (11) Fall: Plan #Rhabdomyolysis #High anion gap metabolic acidosis #Myoglobinuria/hematuria #Hyponatremia #Hyperkalemia #Fall, mechanical #History of stroke #Hypertension #Alcohol abuse #Alcohol withdrawal #Elevated lactic acid #Fall #Rib fracture, chronic 11 #L2 vertebral fracture, chronic ? CPK over 29,000 ? Trend CPK daily ? Monitor electrolytes ? Check urine sodium, urine, serum osmolality ? Patient does seem to have a history of hyponatremia. He has been as low as 12 4 in the past. Possible SIADH component. We will correct sodium slowly. I do not see any salt tablets on home medications. At this time there can be component of prerenal cause as well. ? Recheck BMP in 4 hours. -Has been receiving normal saline, currently receiving a hypertonic saline bolus, nephrology consulted ? Recheck stat BMP now to get baseline status ? Nephrology consulted ? Placed on bedrest -Hold Lasix at this time. ? Continue metoprolol 25 twice daily ? Hold lisinopril ? Continue aspirin, stop atorvastatin -[facility] protocol -Recheck lactic acid, UA with no evidence of UTI, chest x-ray no pneumonia, abdominal CT no acute findings -Bedrest -Once CPK improved, will order imaging of the lumbar spine thoracic and cervical spine Full code SCDs, Lovenox for DVT prophylaxis Attestations Medical Necessity Statement*: Patient requires hospitalization, for rhabdomyolysis, high anion gap metabolic acidosis, myoglobinuria, hyponatremia hypokalemia fall alcohol abuse alcohol drawl elevated lactic acid, severe hyponatremia Diagnoses Rhabdomyolysis M62.82 Hyponatremia E87.1 Anemia D50.8 Anemia type: iron deficiency Iron deficiency anemia type: inadequate dietary iron intake Alcohol abuse F10.10 Hypertension I10 Alcohol withdrawal F10.939 Elevated lactic acid level R79.89 Compression fracture of L2 S32.020A Rib fracture S22.39XA Fall W19.XXXA
[2023-01-11] MEDS: enoxaparin 40 mg/0.4 mL Syringe SUBCUT (15:03)
[2023-01-11 16:43] LABS: Anion Gap 13.7 (5-19); Blood Urea Nitrogen 14 mg/dL (8-23); Calcium 8.4 mg/dL (8.5-10.5); Carbon Dioxide 21 mmol/L (22-29); Chloride 89 mmol/L (98-107); Glomerular Filtration Rate 96.4 mL/min (90-130); Glucose 104 mg/dL (65-115); Osmolality Calculated 249 mOsm/kg (285-295); Potassium 4.7 mmol/L (3.5-5.1)
[2023-01-11 16:44] LABS: Lactic Sepsis W/Reflex 2.8 mmol/L (0.5-2.2)
[2023-01-11 16:48] LABS: Sodium 119 mmol/L (136-145)
[2023-01-11 18:11] LABS: Reflex Lactate Order REFLEX LACTIC ORDERD
[2023-01-11 19:03] LABS: Lactic Acid level (Lactate) 3.4 mmol/L (0.5-2.2)
[2023-01-11] MEDS: FUROsemide 10 mg/mL SDV 2mL 20 MG IVP (19:48)
[2023-01-11 20:51] LABS: Anion Gap 15.4 (5-19); Blood Urea Nitrogen 14 mg/dL (8-23); Calcium 7.9 mg/dL (8.5-10.5); Carbon Dioxide 19 mmol/L (22-29); Chloride 93 mmol/L (98-107); Glomerular Filtration Rate 96.4 mL/min (90-130); Glucose 104 mg/dL (65-115); Osmolality Calculated 257 mOsm/kg (285-295); Potassium 4.4 mmol/L (3.5-5.1); Sodium 123 mmol/L (136-145)
[2023-01-11] MEDS: LORazepam 2 mg Tablet PO (21:14)
[2023-01-11 23:40] LABS: Anion Gap 13.1 (5-19); Blood Urea Nitrogen 14 mg/dL (8-23); Calcium 8.1 mg/dL (8.5-10.5); Carbon Dioxide 22 mmol/L (22-29); Chloride 94 mmol/L (98-107); Glomerular Filtration Rate 96.4 mL/min (90-130); Glucose 104 mg/dL (65-115); Osmolality Calculated 261 mOsm/kg (285-295); Potassium 4.1 mmol/L (3.5-5.1); Sodium 125 mmol/L (136-145)
[2023-01-12] VITALS (18 sets, daily range): BP systolic 89–131; BP diastolic 50–93; PULSE 69–127; RESP 12–23; TEMP 36.6–37.1; O2SAT 94–100; BMI 26.6
[2023-01-12] MEDS: sodium chloride 0.9% 1,000 ML 150 ML IV ×4 (02:38→22:31)
[2023-01-12 02:58] LABS: Basophils % 0.5 %; Eosinophils % 0.2 %; Hematocrit 30.3 % (42.0-52.0); Hemoglobin 9.9 g/dL (11.7-16.6); Lymphocytes # 1.3 10^3/uL (0.8-4.8); Lymphocytes % 21.4 %; Mean Corpuscular HGB Conc 32.7 g/dL (30.0-36.0); Mean Corpuscular Hemoglobin 26.3 pg (28.0-34.0); Mean Corpuscular Volume 80.4 fl (80-94); Mean Platelet Volume 11.3 fL (7.4-10.4); Monocytes # 1.2 10^3/uL (0.2-0.9); Monocytes % 19.6 %; Nucleated Red Blood Cells % 0 %; Platelet Count 148 10^3/cmm (130-400); Red Blood Count 3.77 10^6/uL (4.1-5.3); Red Cell Distribution Width 19.8 % (12.1-15.1)
[2023-01-12 03:14] LABS: Lactate (Lactic Acid level) 2.2 mmol/L (0.5-2.2)
[2023-01-12 03:19] LABS: Alanine Aminotransferase 104 U/L (0-41); Albumin Level 2.6 g/dL (3.5-5.2); Alkaline Phosphatase 62 U/L (40-130); Blood Urea Nitrogen 14 mg/dL (8-23); Calcium 8.1 mg/dL (8.5-10.5); Carbon Dioxide 22 mmol/L (22-29); Chloride 97 mmol/L (98-107); Globulin 2.4 g/dL (1.3-4.6); Glomerular Filtration Rate 96.4 mL/min (90-130); Glucose 97 mg/dL (65-115); Magnesium 1.6 mg/dL (1.7-2.3); Osmolality Calculated 266 mOsm/kg (285-295); Phosphorus 2.7 mg/dL (2.5-4.5); Sodium 128 mmol/L (136-145); Total Bilirubin 0.6 mg/dL (0.15-1.2)
[2023-01-12 03:37] LABS: Anion Gap 13.8 (5-19); Aspartate Amino Transferase 428 U/L (0-40); Potassium 4.8 mmol/L (3.5-5.1)
[2023-01-12 04:24] LABS: Creatine Phosphokinase 12537 U/L (39-308)
--- NOTE | 2023-01-12 05:34 | P.PN_ITS ---
Subjective Subjective: reports less muscle aches, legs stronger Vitals/I&O/Wt Last Vital Signs Temp 98.5 F 01/12/23 04:00 Pulse 100 01/12/23 04:00 Resp 17 01/12/23 04:00 BP 108/91 01/12/23 04:00 Pulse Ox 97 01/12/23 04:00 O2 Del Method Room Air 01/11/23 00:00 01/11/23 01/11/23 01/12/23 14:59 22:59 06:59 Intake Total 1800 / 1800 1650 / 3450 1250 / 4700 Output Total 1800 / 1800 475 / 2275 Balance 1800 / 1800 -150 / 1650 775 / 2425 Weight last 48 hrs Weight 95.7 kg Weight 95.7 kg Weight 88.451 kg Physical Exam Const: COMMON NORMALS: no acute distress and alert Neuro: SENSORIUM/ORIENTATION: Yes alert Urinary Catheter Management: Lenz: Cath Placed During This Visit: yes Reason for Continuing Indwelling Catheter: Accurate Measurement of Urinary Output in Critically Ill Patients Urinary Catheter Date of Insertion: 01/10/23 Urinary Catheter Time of Insertion: 21:30 Data 01/12/23 02:41 01/12/23 02:41 Other Labs: albumin 2.6, transaminases elevated, lactate 2.2 CK 12,537, Ca 8.1 (xenia 9.3), phos 2.7, Mg 1.6 Other data: seen via telemedicine with assistance of RN at bedside A&P Assessment and plan (1) Rhabdomyolysis: Plan 1. Rhabdomyolysis, CK falling 2. Hyperkalemia, resolved 3. Metabolic acidosis, high AG, resolved 4. Acute kidney injury, urine output improved 5. Hyponatremia. Chronic, improved Recommend: agree continue IVF hydration, discontinue sodium bicarbonate Attestations Medical Necessity Statement*: see above Time Spent in Patient Care: 16 - 35 minutes Coding Level of Care Code Acute Code for [facility] Diagnoses Rhabdomyolysis M62.82
[2023-01-12] MEDS: magnesium sulfate premix 2 GM/50 ML PIGGYBACK IV (08:51)
[2023-01-12] MEDS: aspirin 81 mg Chew Tablet PO (08:52)
[2023-01-12] MEDS: pantoprazole DR 40 mg Tablet 20 MG PO (08:52)
[2023-01-12] MEDS: metoprolol tartrate 25 mg Tablet PO ×2 (08:52→18:52)
[2023-01-12] MEDS: folic acid 1 mg Tablet PO (08:52)
[2023-01-12] MEDS: multivitamin therapeutic Tablet 1 TAB PO (08:52)
[2023-01-12] MEDS: thiamine 100 mg Tablet PO (08:53)
--- NOTE | 2023-01-12 09:53 | P.PN_ITS ---
Subjective Subjective: Patient is doing well today. Improving strength in his lower extremities. He lives alone. His fijammie?e who is at bedside states he has not been eating due to being afraid of regaining weight. He used to be morbidly obese but lost a lot of weight and worries about regaining it. He has not yet gotten out of bed. Vitals/I&O/Wt Last Vital Signs Temp 98.5 F 01/12/23 04:00 Pulse 83 01/12/23 06:00 Resp 12 01/12/23 06:00 BP 122/79 01/12/23 06:00 Pulse Ox 97 01/12/23 06:00 O2 Del Method Room Air 01/11/23 00:00 01/11/23 01/12/23 01/12/23 22:59 06:59 14:59 Intake Total 1650 / 3450 1250 / 4700 937.5 / 937.5 Output Total 1800 / 1800 475 / 2275 Balance -150 / 1650 775 / 2425 937.5 / 937.5 Weight last 48 hrs Weight 93.979 kg Weight 95.7 kg Weight 95.7 kg Weight 88.451 kg Physical Exam Narrative: Star? at bedside Const: GENERAL APPEARANCE: cooperative ORIENTATION/CONSCIOUSNESS: Yes awake Neck/C-Spine: COMMON NORMALS: no JVD Resp: COMMON NORMALS: normal respiratory effort and clear to auscultation bilaterally AUSCULTATION: clear to auscultation bilaterally Cardio: COMMON NORMALS: no JVD, regular rhythm, S1 normal heart sound present, S2 normal heart sound present and No murmurs present (Cardio) RHYTHM: regular rhythm HEART SOUNDS: S1 normal heart sound present and S2 normal heart sound present GI: COMMON NORMALS: Normal to inspection, nondistended, normoactive bowel sounds present, Soft to palpation and non-tender PALPATION: Yes Soft to palpation Extremity: COMMON NORMALS: no joint enlargement and no pedal edema Urinary Catheter Management: Lenz: Cath Placed During This Visit: yes Reason for Continuing Indwelling Catheter: Accurate Measurement of Urinary Output in Critically Ill Patients Urinary Catheter Date of Insertion: 01/10/23 Urinary Catheter Time of Insertion: 21:30 Data 01/12/23 02:41 01/12/23 02:41 A&P Assessment and plan (1) Rhabdomyolysis: (2) Hyponatremia: (3) Anemia: Qualifiers: Anemia type: iron deficiency Iron deficiency anemia type: inadequate dietary iron intake Qualified Code(s): D50.8 - Other iron deficiency anemias (4) Alcohol abuse: (5) Hypertension: (6) Alcohol withdrawal: (7) Elevated lactic acid level: (8) Compression fracture of L2: (9) Rib fracture: (10) Fall: Plan #Rhabdomyolysis #High anion gap metabolic acidosis #Myoglobinuria/hematuria #Hyponatremia #Hyperkalemia #Fall, mechanical #History of stroke #Hypertension #Alcohol abuse #Alcohol withdrawal #Elevated lactic acid #Fall #Rib fracture, chronic 11 #L2 vertebral fracture, chronic ? CPK noted decreasing Continues on IV hydration with CK monitoring. Repeat CK is requested for close monitoring due to myoglobin toxicity risk of acute renal failure. Follow renal function. Previously with noted hyponatremia, currently 128. Potassium with some increase up to 4.8. Being followed by nephrology. Nephrology documentation reviewed. Discussed results with him and family. Changed to low potassium diet. Continue to hold CASSIE inhibitor. Replace hypomagnesemia. Repeat chemistries requested. Has not been out of bed, will request assessment by PT. Discharge planning with CM. he lives alone. Was previously in [place] for 5 months, but had to sleep in a chair due to his cancer states lack of a type of bad that he needed. Encourage oral intake of liquids due to dehydration on presentation. Seems to keep significantly limits oral intake for fear of regaining weight with history of morbid obesity. Move from intensive care unit. -Hold Lasix at this time. ? Continue metoprolol 25 twice daily ? Hold lisinopril ? Continue aspirin, stop atorvastatin -[facility] protocol, so far without signs of withdrawal -Once CPK improved, consider imaging of the lumbar spine thoracic and cervical spine Full code SCDs, Lovenox for DVT prophylaxis Attestations Medical Necessity Statement*: Continue admission for assessment management of rhabdomyolysis, IV fluids for renal protection from myoglobin toxicity. Functional assessment. Discharge planning. Diagnoses Rhabdomyolysis M62.82 Hyponatremia E87.1 Anemia D50.8 Anemia type: iron deficiency Iron deficiency anemia type: inadequate dietary iron intake Alcohol abuse F10.10 Hypertension I10 Alcohol withdrawal F10.939 Elevated lactic acid level R79.89 Compression fracture of L2 S32.020A Rib fracture S22.39XA Fall W19.XXXA
[2023-01-12 10:10] LABS: Hepatitis A Antibody IgM Non-Reactive (Nonreactive); Hepatitis B Core IgM Non-Reactive (Nonreactive); Hepatitis B Surface Antigen Non-Reactive (Nonreactive); Hepatitis C Virus Antibody Non-Reactive (Nonreactive)
[2023-01-12] MEDS: enoxaparin 40 mg/0.4 mL Syringe SUBCUT (15:05)
[2023-01-12 17:35] LABS: Blood Urea Nitrogen 11 mg/dL (8-23); Calcium 7.9 mg/dL (8.5-10.5); Carbon Dioxide 22 mmol/L (22-29); Chloride 98 mmol/L (98-107); Glomerular Filtration Rate 134.4 mL/min (90-130); Glucose 108 mg/dL (65-115); Osmolality Calculated 266 mOsm/kg (285-295); Sodium 128 mmol/L (136-145)
[2023-01-13] VITALS (12 sets, daily range): BP systolic 111–137; BP diastolic 73–83; PULSE 61–106; RESP 16–27; TEMP 36.4–37.9; O2SAT 90–97; BMI 27.5
[2023-01-13] MEDS: LORazepam 2 mg Tablet PO (02:13)
[2023-01-13 05:19] LABS: Basophils % 0.6 %; Eosinophils # 0.1 10^3/uL (0.0-0.8); Eosinophils % 0.7 %; Hematocrit 28.9 % (42.0-52.0); Lymphocytes # 1.1 10^3/uL (0.8-4.8); Lymphocytes % 16.8 %; Mean Corpuscular HGB Conc 31.1 g/dL (30.0-36.0); Mean Corpuscular Hemoglobin 25.9 pg (28.0-34.0); Mean Corpuscular Volume 83.3 fl (80-94); Monocytes # 0.8 10^3/uL (0.2-0.9); Monocytes % 12.1 %; Neutrophils # 4.62 10^3/uL (1.8-7.7); Neutrophils % 69.2 %; Nucleated Red Blood Cells % 0 %; Platelet Count 149 10^3/cmm (130-400); Red Blood Count 3.47 10^6/uL (4.1-5.3); Red Cell Distribution Width 19.9 % (12.1-15.1); White Blood Count 6.7 10^3/uL (4.0-10.0)
[2023-01-13 05:36] LABS: Alanine Aminotransferase 114 U/L (0-41); Albumin Level 2.8 g/dL (3.5-5.2); Alkaline Phosphatase 65 U/L (40-130); Aspartate Amino Transferase 411 U/L (0-40); Blood Urea Nitrogen 9 mg/dL (8-23); Calcium 8.4 mg/dL (8.5-10.5); Carbon Dioxide 20 mmol/L (22-29); Chloride 95 mmol/L (98-107); Globulin 3.1 g/dL (1.3-4.6); Glomerular Filtration Rate 134.4 mL/min (90-130); Glucose 93 mg/dL (65-115); Magnesium 1.7 mg/dL (1.7-2.3); Osmolality Calculated 256 mOsm/kg (285-295); Phosphorus 2.2 mg/dL (2.5-4.5); Sodium 124 mmol/L (136-145); Total Bilirubin 0.7 mg/dL (0.15-1.2); Total Protein 5.9 g/dL (6.6-8.7)
[2023-01-13] MEDS: sodium chloride 0.9% 1,000 ML 150 ML IV (05:38)
[2023-01-13 05:40] LABS: Lactate (Lactic Acid level) 1.8 mmol/L (0.5-2.2)
[2023-01-13 05:54] LABS: Creatine Phosphokinase 11416 U/L (39-308)
[2023-01-13] MEDS: magnesium sulfate premix 2 GM/50 ML PIGGYBACK IV (09:44)
[2023-01-13] MEDS: pantoprazole DR 40 mg Tablet 20 MG PO (09:59)
[2023-01-13] MEDS: multivitamin therapeutic Tablet 1 TAB PO (10:00)
[2023-01-13] MEDS: metoprolol tartrate 25 mg Tablet PO ×2 (10:00→17:29)
[2023-01-13] MEDS: albumin 25 G/100 ML BAG 60 G IV ×2 (10:01→17:28)
[2023-01-13] MEDS: folic acid 1 mg Tablet PO (10:01)
[2023-01-13] MEDS: aspirin 81 mg Chew Tablet PO (10:01)
[2023-01-13] MEDS: thiamine 100 mg Tablet PO (10:01)
[2023-01-13] MEDS: urea 15 gm Powder 10 GM PO (10:15)
--- NOTE | 2023-01-13 11:30 | PC.SOCIAL ---
Pg 2 IMM Explained to pt Pg 2 IMM. No questions voiced. Provided pt a copy. Initialed, dated, & timed a copy & placed in chart.
--- NOTE | 2023-01-13 14:17 | PC.NURSE ---
notified Dr. Camargo of patient being a little confused today. He knows name, , and sometimes knows he is in the hospital and the year on occasion. Patient is saying off the wall things that just don't make since. Example, intelligence are here need to back up computers, there are [employer] trains above us and meeting someone between 10 and 11 to pickle pumper a cell phone. Patient was not like this last night at all.
[2023-01-13] MEDS: enoxaparin 40 mg/0.4 mL Syringe SUBCUT (14:42)
[2023-01-13 15:20] LABS: Anion Gap 11.9 (5-19); Blood Urea Nitrogen 16 mg/dL (8-23); Calcium 8.2 mg/dL (8.5-10.5); Carbon Dioxide 22 mmol/L (22-29); Chloride 97 mmol/L (98-107); Glomerular Filtration Rate 134.4 mL/min (90-130); Glucose 100 mg/dL (65-115); Osmolality Calculated 265 mOsm/kg (285-295); Potassium 3.9 mmol/L (3.5-5.1); Sodium 127 mmol/L (136-145)
[2023-01-13] MEDS: citric acid-sodium citrate 30 mL UDC PO (15:21)
--- NOTE | 2023-01-13 18:05 | P.PN_ITS ---
Subjective Subjective: feels better Medications: Reviewed: Yes Vitals/I&O/Wt Last Vital Signs Temp 98.2 F 01/13/23 15:56 Pulse 61 01/13/23 15:56 Resp 18 01/13/23 15:56 BP 118/77 01/13/23 15:56 Pulse Ox 96 01/13/23 15:56 O2 Del Method Room Air 01/13/23 15:56 01/13/23 01/13/23 01/13/23 06:59 14:59 22:59 Intake Total 1000 / 4105.0 1510 / 1510 Output Total 1450 / 2850 600 / 600 Balance -450 / 1255.0 1510 / 1510 -600 / 910 Weight last 48 hrs Weight 97.324 kg Weight 93.979 kg Physical Exam Const: COMMON NORMALS: no acute distress and alert Neuro: SENSORIUM/ORIENTATION: Yes alert Urinary Catheter Management: Lenz: Cath Placed During This Visit: yes Reason for Continuing Indwelling Catheter: Other Urinary Catheter Date of Insertion: 01/10/23 Urinary Catheter Time of Insertion: 21:30 Data 01/13/23 05:07 01/13/23 14:49 A&P Assessment and plan (1) Rhabdomyolysis: Plan 1. Rhabdomyolysis, CK falling 2. Hyperkalemia, resolved 3. Metabolic acidosis, high AG, resolved 4. Acute kidney injury, urine output improved, Cr better 5. Hyponatremia. Chronic, improved Recommend: agree continue IVF hydration, discontinue sodium bicarbonate Attestations Medical Necessity Statement*: per medicine Coding Level of Care Code Acute Code for [facility] Diagnoses Rhabdomyolysis M62.82
--- NOTE | 2023-01-13 18:07 | P.PN_ITS ---
Vitals/I&O/Wt Last Vital Signs Temp 98.2 F 01/13/23 15:56 Pulse 61 01/13/23 15:56 Resp 18 01/13/23 15:56 BP 118/77 01/13/23 15:56 Pulse Ox 96 01/13/23 15:56 O2 Del Method Room Air 01/13/23 15:56 01/13/23 01/13/23 01/13/23 06:59 14:59 22:59 Intake Total 1000 / 4105.0 1510 / 1510 Output Total 1450 / 2850 600 / 600 Balance -450 / 1255.0 1510 / 1510 -600 / 910 Weight last 48 hrs Weight 97.324 kg Weight 93.979 kg Physical Exam Urinary Catheter Management: Lenz: Cath Placed During This Visit: yes Reason for Continuing Indwelling Catheter: Other Urinary Catheter Date of Insertion: 01/10/23 Urinary Catheter Time of Insertion: 21:30 Data 01/13/23 05:07 01/13/23 14:49 Coding Level of Care Code Acute Code for [facility] Diagnoses
--- NOTE | 2023-01-13 21:00 | PM.PN ---
Subjective Subjective: Wakes up easily. States he is doing all right. Confirms that he did quite poorly with physical therapy and was quite weak/deconditioned. Still feeling aches in his neck, arms, legs. Medications: Reviewed: Yes Vitals/I&O/Wt Last Vital Signs Temp 100.2 F H 01/13/23 20:00 Pulse 90 01/13/23 20:00 Resp 27 H 01/13/23 20:00 BP 123/79 01/13/23 20:00 Pulse Ox 97 01/13/23 20:00 O2 Del Method Room Air 01/13/23 20:00 01/13/23 01/13/23 01/13/23 06:59 14:59 22:59 Intake Total 1000 / 4105.0 1510 / 1510 100 / 1610 Output Total 1450 / 2850 600 / 600 Balance -450 / 1255.0 1510 / 1510 -500 / 1010 Weight last 48 hrs Weight 97.324 kg Weight 93.979 kg Physical Exam Const: GENERAL APPEARANCE: cooperative ORIENTATION/CONSCIOUSNESS: Yes awake Neck/C-Spine: COMMON NORMALS: no JVD Resp: COMMON NORMALS: normal respiratory effort and clear to auscultation bilaterally AUSCULTATION: clear to auscultation bilaterally Cardio: COMMON NORMALS: no JVD, regular rhythm, S1 normal heart sound present, S2 normal heart sound present and No murmurs present (Cardio) RHYTHM: regular rhythm HEART SOUNDS: S1 normal heart sound present and S2 normal heart sound present GI: COMMON NORMALS: Normal to inspection, nondistended, normoactive bowel sounds present, Soft to palpation and non-tender PALPATION: Yes Soft to palpation Extremity: COMMON NORMALS: no joint enlargement and no pedal edema Urinary Catheter Management: Lenz: Cath Placed During This Visit: yes Reason for Continuing Indwelling Catheter: Other Urinary Catheter Date of Insertion: 01/10/23 Urinary Catheter Time of Insertion: 21:30 Data 01/13/23 05:07 01/13/23 14:49 A&P Assessment and plan (1) Rhabdomyolysis: (2) Hyponatremia: (3) Anemia: Qualifiers: Anemia type: iron deficiency Iron deficiency anemia type: inadequate dietary iron intake Qualified Code(s): D50.8 - Other iron deficiency anemias (4) Alcohol abuse: (5) Hypertension: (6) Alcohol withdrawal: (7) Elevated lactic acid level: (8) Compression fracture of L2: (9) Rib fracture: (10) Fall: Plan #Rhabdomyolysis #High anion gap metabolic acidosis #Myoglobinuria/hematuria #Hyponatremia #Hyperkalemia #Fall, mechanical #History of stroke #Hypertension #Alcohol abuse #Alcohol withdrawal #Elevated lactic acid #Fall #Rib fracture, chronic 11 #L2 vertebral fracture, chronic ? Traumatic rhabdomyolysis with mild further improvement, CK down to 11-1/2 thousand. Renal function remains 8, BUN 16, creatinine 0.6. Continue to nephrology follow-up appreciated. Documentation reviewed. IV NS currently discontinued. He started on albumin. Follow-up CK level, chemistry. Discussed results with him and family. Low potassium diet. Continue to hold CASSIE inhibitor. Give additional magnesium 1 g. Recheck hypomagnesemia. Sodium 127. He was started on urea. Repeat chemistries requested. Weak performance with physical therapy. Will require rehabilitation. CM on the case. Encourage oral intake of liquids due to dehydration on presentation. Seems to keep significantly limits oral intake for fear of regaining weight with history of morbid obesity. -Hold Lasix at this time. ? Continue metoprolol 25 twice daily ? Hold lisinopril ? Continue aspirin, stop atorvastatin -[facility] protocol, so far without signs of withdrawal -Once CPK improved, consider imaging of the lumbar spine thoracic and cervical spine Full code Megha Jama for DVT prophylaxis Attestations Medical Necessity Statement*: Continue admission for assessment management of rhabdomyolysis. Diagnoses Rhabdomyolysis M62.82 Hyponatremia E87.1 Anemia D50.8 Anemia type: iron deficiency Iron deficiency anemia type: inadequate dietary iron intake Alcohol abuse F10.10 Hypertension I10 Alcohol withdrawal F10.939 Elevated lactic acid level R79.89 Compression fracture of L2 S32.020A Rib fracture S22.39XA Fall W19.XXXA
--- NOTE | 2023-01-13 21:04 | XRR_ITS ---
PROCEDURE INFORMATION: Exam: XR Chest Exam date and time: 01/13/2023 8:14 PM Age: 67 years old Clinical indication: Fever; Additional info: Low grade fever TECHNIQUE: Imaging protocol: Radiologic exam of the chest. Views: 1 view. COMPARISON: CR (CHEST, ) 01/10/2023 5:03 PM FINDINGS: Lungs: Mild increased interstitial markings. Mild airspace disease at the lung bases. The findings are suggestive of fluid overload/CHF versus bilateral pneumonia. Pleural spaces: Small right pleural effusion. No left pleural effusion. No pneumothorax. Heart/Mediastinum: Mild cardiomegaly is noted. Vasculature: The thoracic aorta is atherosclerotic. Bones/joints: Degenerative spine changes are noted. XR/XR chest 1V portable [id number] IMPRESSION: 1. Mild cardiomegaly is noted. 2. Mild increased interstitial markings. Mild airspace disease at the lung bases. The findings are suggestive of fluid overload/CHF versus bilateral pneumonia. 3. Small right pleural effusion. 4. This appears new when compared to XR chest of 01/10/2023.
[2023-01-14] VITALS (9 sets, daily range): BP systolic 107–142; BP diastolic 70–93; PULSE 54–95; RESP 16–30; TEMP 36.3–37.2; O2SAT 92–98
[2023-01-14] MEDS: albumin 25 G/100 ML BAG 60 G IV ×3 (00:35→16:59)
[2023-01-14 04:01] LABS: Basophils % 0.3 %; Hematocrit 28.4 % (42.0-52.0); Hemoglobin 8.6 g/dL (11.7-16.6); Lymphocytes # 0.8 10^3/uL (0.8-4.8); Lymphocytes % 11.6 %; Mean Corpuscular HGB Conc 30.3 g/dL (30.0-36.0); Mean Corpuscular Hemoglobin 26.1 pg (28.0-34.0); Mean Corpuscular Volume 86.1 fl (80-94); Mean Platelet Volume 11.5 fL (7.4-10.4); Monocytes % 14.1 %; Neutrophils # 5.01 10^3/uL (1.8-7.7); Neutrophils % 73.4 %; Nucleated Red Blood Cells % 0 %; Platelet Count 159 10^3/cmm (130-400); Red Cell Distribution Width 20.1 % (12.1-15.1); White Blood Count 6.8 10^3/uL (4.0-10.0)
[2023-01-14 04:23] LABS: Lactate (Lactic Acid level) 1.9 mmol/L (0.5-2.2)
[2023-01-14 04:27] LABS: Alanine Aminotransferase 99 U/L (0-41); Albumin Level 3.5 g/dL (3.5-5.2); Alkaline Phosphatase 70 U/L (40-130); Anion Gap 16.6 (5-19); Aspartate Amino Transferase 300 U/L (0-40); Blood Urea Nitrogen 13 mg/dL (8-23); Calcium 8.7 mg/dL (8.5-10.5); Carbon Dioxide 20 mmol/L (22-29); Chloride 99 mmol/L (98-107); Globulin 2.7 g/dL (1.3-4.6); Glomerular Filtration Rate 112.5 mL/min (90-130); Glucose 105 mg/dL (65-115); Magnesium 2.3 mg/dL (1.7-2.3); Osmolality Calculated 272 mOsm/kg (285-295); Phosphorus 3.1 mg/dL (2.5-4.5); Potassium 4.6 mmol/L (3.5-5.1); Sodium 131 mmol/L (136-145); Total Protein 6.2 g/dL (6.6-8.7)
[2023-01-14 04:41] LABS: Creatine Phosphokinase 7240 U/L (39-308)
[2023-01-14] MEDS: aspirin 81 mg Chew Tablet PO (08:46)
[2023-01-14] MEDS: multivitamin therapeutic Tablet 1 TAB PO (08:47)
[2023-01-14] MEDS: thiamine 100 mg Tablet PO (08:47)
[2023-01-14] MEDS: pantoprazole DR 40 mg Tablet 20 MG PO (08:47)
[2023-01-14] MEDS: metoprolol tartrate 25 mg Tablet PO (08:47)
[2023-01-14] MEDS: folic acid 1 mg Tablet PO (08:47)
[2023-01-14] MEDS: urea 15 gm Powder 10 GM PO (08:48)
[2023-01-14 10:33] LABS: Glucose Urine UA Norm (Normal); Protein Urine Neg (Negative); Urine Color Dark yellow (Yellow); pH Urine 5 (5-7)
[2023-01-14 10:34] LABS: Add Urine Microscopic? YES; Bacteria Urine 1+ /hpf; Bilirubin Urine Neg (Negative); Blood Urine 3+ (Negative); Ketones Urine Negative (Negative); Leukocyte Esterase Urine Trace (Negative); Nitrate Urine Negative (Negative); RBC Urine RARE /hpf (0-2); Squamous Epithelial Cell Urine RARE /hpf (0-5); Urobilinogen Urine 1 mg/dL (Negative)
[2023-01-14 10:35] LABS: Add Urine Culture? No
--- NOTE | 2023-01-14 13:58 | PC.OT ---
Patient refused OT services at this time. Patient stated he was sore from an earlier therapy session. Therapist asked patient several times if he wanted to participate in ADL tasks or UE strengthening tasks and cont. to refuse and stated he did not want therapist to check back in later. Requested tomorrow for ADLs including shave.
[2023-01-14] MEDS: enoxaparin 40 mg/0.4 mL Syringe SUBCUT (14:21)
[2023-01-14] MEDS: acetaminophen 325 mg Tablet 650 MG PO (14:23)
[2023-01-14 14:30] LABS: Osmolality Serum 259 mOsm/kg (278-305)
[2023-01-14 14:30] LABS: Osmolality Urine 300 mOsm/kg (50-1200)
--- NOTE | 2023-01-14 18:50 | PM.PN ---
Subjective Subjective: States he is doing all right. Feels better today. Got confused about his sock being on his right foot, thought that he had lost it. States that he will is working with physical therapy and feels that he is reaping the benefits. Discussed with him still need for rehabilitation after discharge prior to return home, he verbalized understanding and agreement. Medications: Reviewed: Yes Vitals/I&O/Wt Last Vital Signs Temp 97.4 F L 01/14/23 16:00 Pulse 79 01/14/23 16:00 Resp 18 01/14/23 16:00 BP 119/77 01/14/23 16:00 Pulse Ox 97 01/14/23 16:00 O2 Del Method Room Air 01/14/23 16:00 01/14/23 01/14/23 01/14/23 06:59 14:59 22:59 Intake Total 250 / 1912 400 / 400 240 / 640 Output Total 600 / 1200 300 / 300 400 / 700 Balance -350 / 712 100 / 100 -160 / -60 Weight last 48 hrs Weight 98.021 kg Weight 97.324 kg Physical Exam Const: GENERAL APPEARANCE: cooperative ORIENTATION/CONSCIOUSNESS: Yes awake Neck/C-Spine: COMMON NORMALS: no JVD Resp: COMMON NORMALS: normal respiratory effort and clear to auscultation bilaterally AUSCULTATION: clear to auscultation bilaterally Cardio: COMMON NORMALS: no JVD, regular rhythm, S1 normal heart sound present, S2 normal heart sound present and No murmurs present (Cardio) RHYTHM: regular rhythm HEART SOUNDS: S1 normal heart sound present and S2 normal heart sound present GI: COMMON NORMALS: Normal to inspection, nondistended, normoactive bowel sounds present, Soft to palpation and non-tender PALPATION: Yes Soft to palpation Extremity: COMMON NORMALS: no joint enlargement and no pedal edema Urinary Catheter Management: Lenz: Cath Placed During This Visit: yes Reason for Continuing Indwelling Catheter: Other Urinary Catheter Date of Insertion: 01/10/23 Urinary Catheter Time of Insertion: 21:30 Data 01/14/23 03:36 01/14/23 03:36 A&P Assessment and plan (1) Rhabdomyolysis: (2) Hyponatremia: (3) Anemia: Qualifiers: Anemia type: iron deficiency Iron deficiency anemia type: inadequate dietary iron intake Qualified Code(s): D50.8 - Other iron deficiency anemias (4) Alcohol abuse: (5) Hypertension: (6) Alcohol withdrawal: (7) Elevated lactic acid level: (8) Compression fracture of L2: (9) Rib fracture: (10) Fall: Plan #Rhabdomyolysis #High anion gap metabolic acidosis #Myoglobinuria/hematuria #Hyponatremia #Hyperkalemia #Fall, mechanical #History of stroke #Hypertension #Alcohol abuse #Alcohol withdrawal #Elevated lactic acid #Fall #Rib fracture, chronic 11 #L2 vertebral fracture, chronic ? Traumatic rhabdomyolysis improving. CK noted further trending down. Recheck CK level. Renal function remains 8, BUN 16, creatinine 0.6. Continue to nephrology follow-up appreciated. Documentation reviewed. Continue albumin. Monitor oxygenation. Follow-up chemistry. Potassium improved, 4.6. Low potassium diet. Continue to hold CASSIE inhibitor. Hypomagnesemia replaced. Sodium 131. Monitor. Continue urea. Repeat chemistries requested. Acute encephalopathy: Mild confusion. Possibly metabolic encephalopathy related to UTI. Noted 10-15 WBC on UA. Chest x-ray with increased interstitial markings, possibly degree of fluid overload, possibly pneumonia. Last night with low-grade temp 100.2 Fahrenheit. Will request urine culture. Add ceftriaxone for now. Weak performance with physical therapy. Will require rehabilitation. CM on the case. Encourage oral intake of liquids due to dehydration on presentation. Seems to keep significantly limits oral intake for fear of regaining weight with history of morbid obesity. -Hold Lasix at this time. ? Continue metoprolol 25 twice daily ? Hold lisinopril ? Continue aspirin, stop atorvastatin -CIWA protocol, so far without signs of withdrawal -Once CPK improved, consider imaging of the lumbar spine thoracic and cervical spine Full code [id number] angulo for DVT prophylaxis Attestations Medical Necessity Statement*: Continue admission for assessment management of rhabdomyolysis, mild acute encephalopathy. Diagnoses Rhabdomyolysis M62.82 Hyponatremia E87.1 Anemia D50.8 Anemia type: iron deficiency Iron deficiency anemia type: inadequate dietary iron intake Alcohol abuse F10.10 Hypertension I10 Alcohol withdrawal F10.939 Elevated lactic acid level R79.89 Compression fracture of L2 S32.020A Rib fracture S22.39XA Fall W19.XXXA
--- NOTE | 2023-01-14 19:55 | P.PN_ITS ---
Subjective Subjective: no new complaints Medications: Reviewed: Yes Vitals/I&O/Wt Last Vital Signs Temp 97.4 F L 01/14/23 16:00 Pulse 79 01/14/23 16:00 Resp 18 01/14/23 16:00 BP 119/77 01/14/23 16:00 Pulse Ox 97 01/14/23 16:00 O2 Del Method Room Air 01/14/23 16:00 01/14/23 01/14/23 01/14/23 06:59 14:59 22:59 Intake Total 250 / 1912 400 / 400 340 / 740 Output Total 600 / 1200 300 / 300 400 / 700 Balance -350 / 712 100 / 100 -60 / 40 Weight last 48 hrs Weight 98.021 kg Weight 97.324 kg Physical Exam Urinary Catheter Management: Lenz: Cath Placed During This Visit: yes Reason for Continuing Indwelling Catheter: Other Urinary Catheter Date of Insertion: 01/10/23 Urinary Catheter Time of Insertion: 21:30 Data 01/14/23 03:36 01/14/23 03:36 A&P Assessment and plan (1) Rhabdomyolysis: Plan 1. Rhabdomyolysis, CK falling 2. Hyperkalemia, resolved 3. Metabolic acidosis, high AG, resolved 4. Acute kidney injury, urine output improved, Cr better 5. Hyponatremia. Chronic, improved Recommend: agree continue IVF hydration, discontinue sodium bicarbonate Attestations Medical Necessity Statement*: per sami Coding Level of Care Code Acute Code for [facility] Diagnoses Rhabdomyolysis M62.82
[2023-01-14] MEDS: cefTRIAXone 1,000 MG in sodium chloride 0.9% (plus) 50 ML 100 MG IV (20:42)
[2023-01-15] VITALS (8 sets, daily range): BP systolic 113–137; BP diastolic 74–93; PULSE 65–96; RESP 18–23; TEMP 36.7–36.9; O2SAT 95–100
[2023-01-15] MEDS: albumin 25 G/100 ML BAG 60 G IV (00:26)
[2023-01-15 04:44] LABS: Basophils % 0.6 %; Eosinophils # 0.1 10^3/uL (0.0-0.8); Eosinophils % 1.8 %; Hematocrit 26.1 % (42.0-52.0); Hemoglobin 8.2 g/dL (11.7-16.6); Lymphocytes # 1.2 10^3/uL (0.8-4.8); Lymphocytes % 17.8 %; Mean Corpuscular HGB Conc 31.4 g/dL (30.0-36.0); Mean Corpuscular Hemoglobin 26.5 pg (28.0-34.0); Mean Corpuscular Volume 84.5 fl (80-94); Mean Platelet Volume 10.5 fL (7.4-10.4); Monocytes % 14.2 %; Neutrophils # 4.39 10^3/uL (1.8-7.7); Nucleated Red Blood Cells % 0 %; Platelet Count 175 10^3/cmm (130-400); Red Blood Count 3.09 10^6/uL (4.1-5.3); White Blood Count 6.8 10^3/uL (4.0-10.0)
[2023-01-15 05:10] LABS: Alanine Aminotransferase 75 U/L (0-41); Albumin Level 3.8 g/dL (3.5-5.2); Alkaline Phosphatase 62 U/L (40-130); Aspartate Amino Transferase 157 U/L (0-40); Blood Urea Nitrogen 20 mg/dL (8-23); Calcium 8.7 mg/dL (8.5-10.5); Carbon Dioxide 22 mmol/L (22-29); Chloride 99 mmol/L (98-107); Globulin 2.4 g/dL (1.3-4.6); Glomerular Filtration Rate 134.4 mL/min (90-130); Glucose 95 mg/dL (65-115); Osmolality Calculated 274 mOsm/kg (285-295); Sodium 131 mmol/L (136-145); Total Bilirubin 0.6 mg/dL (0.15-1.2); Total Protein 6.2 g/dL (6.6-8.7)
[2023-01-15 09:36] LABS: Creatine Phosphokinase 3356 U/L (39-308)
--- NOTE | 2023-01-15 09:45 | P.PN_ITS ---
Subjective Subjective: no new complaints Medications: Reviewed: Yes Vitals/I&O/Wt Last Vital Signs Temp 98.1 F 01/15/23 08:00 Pulse 96 01/15/23 08:00 Resp 20 H 01/15/23 08:00 BP 137/93 01/15/23 08:00 Pulse Ox 95 01/15/23 08:00 O2 Del Method Room Air 01/15/23 08:37 01/14/23 01/15/23 01/15/23 22:59 06:59 14:59 Intake Total 390 / 790 100 / 890 360 / 360 Output Total 750 / 1050 550 / 1600 Balance -360 / -260 -450 / -710 360 / 360 Weight last 48 hrs Weight 99.473 kg Weight 98.021 kg Physical Exam Urinary Catheter Management: Lenz: Cath Placed During This Visit: yes Reason for Continuing Indwelling Catheter: Other Urinary Catheter Date of Insertion: 01/10/23 Urinary Catheter Time of Insertion: 21:30 Data 01/15/23 04:11 01/15/23 04:11 A&P Assessment and plan (1) Rhabdomyolysis: Plan 1. Rhabdomyolysis,improved 2. Hyperkalemia, resolved 3. Metabolic acidosis, high AG, resolved 4. Acute kidney injury, urine output improved, Cr better 5. Hyponatremia. Chronic, improved, c/w fluid restriction and urea tabs , s/p IV albumin Attestations Medical Necessity Statement*: per medicine Coding Level of Care Code Acute Code for [facility] Diagnoses Rhabdomyolysis M62.82
--- NOTE | 2023-01-15 09:59 | XR_ITS ---
WS: [id number] Exam: XR chest 1V portable [id number] Date/Time of Exam: 01/15/2023 10:03 AM Reason For Exam: sob Comparison 01/13/2023. Cardiac enlargement with pulmonary vascular congestion and bibasal pleural effusions suggesting CHF. No pneumothorax identified. The mediastinum is normal in contour. Bony structures are intact. Several old right rib fractures noted. XR/XR chest 1V portable [id number] IMPRESSION: 1. Cardiac enlargement with pulmonary vascular congestion and bibasal pleural e ffusions suggesting CHF.
[2023-01-15] MEDS: thiamine 100 mg Tablet PO (11:22)
[2023-01-15] MEDS: metoprolol tartrate 25 mg Tablet PO ×2 (11:22→19:11)
[2023-01-15] MEDS: multivitamin therapeutic Tablet 1 TAB PO (11:22)
[2023-01-15] MEDS: folic acid 1 mg Tablet PO (11:22)
[2023-01-15] MEDS: pantoprazole DR 40 mg Tablet 20 MG PO (11:22)
[2023-01-15] MEDS: aspirin 81 mg Chew Tablet PO (11:23)
[2023-01-15] MEDS: urea 15 gm Powder 10 GM PO (11:23)
[2023-01-15] MEDS: FUROsemide 10 mg/mL SDV 10mL 60 MG IVP (11:45)
--- NOTE | 2023-01-15 12:10 | PC.SOCIAL ---
Imm update Imm updated with patient and at bedside. Copy of page 2 provided. Patient and verbalized understanding. Copy in chart initialed, dated and timed.
--- NOTE | 2023-01-15 15:22 | CTR_ITS ---
PROCEDURE INFORMATION: Exam: CT Lumbar Spine Without Contrast Exam date and time: 01/15/2023 3:56 PM Age: 67 years old Clinical indication: Injury or trauma; Fall; Blunt trauma (contusions or hematomas); Additional info: Assess after recent fall with some back pain, prior vertebral fracture TECHNIQUE: Imaging protocol: Computed tomography of the lumbar spine without contrast. Radiation optimization: All CT scans at this facility use at least one of these dose optimization techniques: automated exposure control; mA and/or kV adjustment per patient size (includes targeted exams where dose is matched to clinical indication); or iterative reconstruction. REPORTING DATA: Count of CT and Cardiac NM exams in prior 12 months: This patient has received 3 known CTs and 0 known cardiac nuclear medicine studies in the 12 months prior to the current study. COMPARISON: MR lumbar spine wo con* [id number] 01/16/2018 11:01 AM RADIATION DOSE METRICS: Total DLP (mGy-cm): 933 FINDINGS: Bones/joints: See below. L1-L2: L2 vertebral body compression fracture with mild retropulsion of bony fragments and a broad-based disc bulge resulting in mild L1-L2 spinal canal narrowing. L2-L3: No significant disc bulge or herniation. No severe spinal canal stenosis. No significant neural foraminal narrowing. L3-L4: L3-L4 broad-based disc bulge with mild spinal canal and bilateral foraminal narrowing. L4-L5: L4-L5 broad-based disc bulge with mild spinal canal narrowing. L5-S1: L5/S1 broad-based disc bulge with moderate spinal canal and severe bilateral foraminal narrowing. Kidneys and ureters: Perinephric edema bilaterally likely reflecting renal insufficiency. Soft tissues: Unremarkable. CT/CT lumbar spine wo con* [id number] IMPRESSION: 1. L2 vertebral body compression fracture with mild retropulsion of bony fragments and a broad-based disc bulge resulting in mild L1-L2 spinal canal narrowing. 2. L3-L4 broad-based disc bulge with mild spinal canal and bilateral foraminal narrowing. 3. L4-L5 broad-based disc bulge with mild spinal canal narrowing. 4. L5/S1 broad-based disc bulge with moderate spinal canal and severe bilateral foraminal narrowing. 5. Perinephric edema bilaterally likely reflecting renal insufficiency.
--- NOTE | 2023-01-15 15:22 | XR_ITS ---
WS: [id number] Exam: XR thoracic spine 3V* [id number] Date/Time of Exam: 01/15/2023 4:12 PM Reason For Exam: assess for any compression Fx No acute fracture or dislocation. Marked osteopenia. Degenerative disc changes. Bony changes suggesti ng ankylosing spondylitis. Paraspinal soft tissues are unremarkable. XR/XR thoracic spine 3V* [id number] IMPRESSION: 1. No fracture or malalignment. 2. Osteopenia, degenerative changes and findings at suggest ankylosing spondyli tis.
--- NOTE | 2023-01-15 15:22 | XR_ITS ---
WS: [id number] Exam: XR cervical spine 3V* [id number] Date/Time of Exam: 01/15/2023 4:12 PM Reason For Exam: assess for any compression Fx No acute fracture or dislocation. Disc space narrowing from C2 to C6. Spondylosis and facet DJD at al l levels. Normal anterior cervical soft tissues. The odontoid is intact. XR/XR cervical spine 3V* [id number] IMPRESSION: 1. Moderate degenerative changes. 2. No fracture or malalignment.
[2023-01-15] MEDS: enoxaparin 40 mg/0.4 mL Syringe SUBCUT (16:52)
[2023-01-15] MEDS: acetaminophen 325 mg Tablet 650 MG PO (17:25)
--- NOTE | 2023-01-15 17:53 | P.PN_ITS ---
Subjective Subjective: He states he is feeling better. His aches and pains are improving. Medications: Reviewed: Yes Vitals/I&O/Wt Last Vital Signs Temp 98.3 F 01/15/23 15:56 Pulse 93 01/15/23 15:56 Resp 18 01/15/23 15:56 BP 127/82 01/15/23 15:56 Pulse Ox 95 01/15/23 15:56 O2 Del Method Room Air 01/15/23 15:56 01/15/23 01/15/23 01/15/23 06:59 14:59 22:59 Intake Total 100 / 890 720 / 720 Output Total 550 / 1600 2450 / 2450 Balance -450 / -710 -1730 / -1730 Weight last 48 hrs Weight 99.473 kg Weight 98.021 kg Physical Exam Const: GENERAL APPEARANCE: cooperative ORIENTATION/CONSCIOUSNESS: Yes awake Neck/C-Spine: COMMON NORMALS: no JVD Resp: AUSCULTATION: diminished lung sounds OTHER: Increased work of breathing this morning. Tachypnea up to 23. Cardio: COMMON NORMALS: no JVD, regular rhythm, S1 normal heart sound present, S2 normal heart sound present and No murmurs present (Cardio) RHYTHM: regular rhythm HEART SOUNDS: S1 normal heart sound present and S2 normal heart sound present GI: COMMON NORMALS: Normal to inspection, nondistended, normoactive bowel sounds present, Soft to palpation and non-tender PALPATION: Yes Soft to palpation Extremity: COMMON NORMALS: no joint enlargement and no pedal edema Urinary Catheter Management: Lenz: Cath Placed During This Visit: yes Reason for Continuing Indwelling Catheter: Other Urinary Catheter Date of Insertion: 01/10/23 Urinary Catheter Time of Insertion: 21:30 Data 01/15/23 04:11 01/15/23 04:11 A&P Assessment and plan (1) Rhabdomyolysis: (2) Hyponatremia: (3) Anemia: Qualifiers: Anemia type: iron deficiency Iron deficiency anemia type: inadequate dietary iron intake Qualified Code(s): D50.8 - Other iron deficiency anemias (4) Alcohol abuse: (5) Hypertension: (6) Alcohol withdrawal: (7) Elevated lactic acid level: (8) Compression fracture of L2: (9) Rib fracture: (10) Fall: Plan #Rhabdomyolysis #High anion gap metabolic acidosis #Myoglobinuria/hematuria #Hyponatremia #Hyperkalemia #Fall, mechanical #History of stroke #Hypertension #Alcohol abuse #Alcohol withdrawal #Elevated lactic acid #Fall #Rib fracture, chronic 11 #L2 vertebral fracture, chronic Fluid overload: With pulmonary edema, increased work of breathing, tachypnea. Given Lasix 60 mg IV. Chest x-ray requested, with moderate cardiomegaly, pulmonary congestive changes. Monitor LANCE. Reassess respiratory function. May need additional diuretic. Discussed with nephrology. ? Traumatic rhabdomyolysis resolving. CK coming down below 5000. Albumin di scontinued. Recheck CK level. Noted some perinephric edema to be secondary to renal insufficiency. Renal function remains 8, BUN 16, creatinine 0.6. Continue to nephrology follow-up appreciated. Documentation reviewed. Continue albumin. Monitor oxygenation. Follow-up chemistry. Potassium improved, 4.6. Low potassium diet. Continue to hold CASSIE inhibitor. Hypomagnesemia replaced. Sodium 131. Monitor. Continue urea. Repeat chemistries requested. Acute encephalopathy: Mild confusion. Possibly metabolic encephalopathy related to UTI. Noted 10-15 WBC on UA. Chest x-ray with increased interstitial markings, possibly degree of fluid overload, possibly pneumonia. Last night with low-grade temp 100.2 Fahrenheit. Will request urine culture. Add ceftriaxone for now. Weak performance with physical therapy. Will require rehabilitation. CM on the case. Encourage oral intake of liquids due to dehydration on presentation. Seems to keep significantly limits oral intake for fear of regaining weight with history of morbid obesity. -Hold Lasix at this time. ? Continue metoprolol 25 twice daily ? Hold lisinopril ? Continue aspirin, stop atorvastatin -CIWA protocol, so far without signs of withdrawal -lumbar spine thoracic and cervical spine imaging obtained. Lumbar spine CT with L2 compression fracture mild spinal canal narrowing. Disc bulges at L3-4, L4-5, L5-S1. The latter with moderate spinal canal and severe bilateral foraminal narrowing. Thoracic and cervical spine x-rays pending. Full code SCDs, Lovenox for DVT prophylaxis Attestations Medical Necessity Statement*: Continue admission for assessment management of fluid overload, worsening respiratory function with increased work of breathing, tachypnea, pulmonary vascular congestion with resolving rhabdomyolysis. Diagnoses Rhabdomyolysis M62.82 Hyponatremia E87.1 Anemia D50.8 Anemia type: iron deficiency Iron deficiency anemia type: inadequate dietary iron intake Alcohol abuse F10.10 Hypertension I10 Alcohol withdrawal F10.939 Elevated lactic acid level R79.89 Compression fracture of L2 S32.020A Rib fracture S22.39XA Fall W19.XXXA
[2023-01-15] MEDS: cefTRIAXone 1,000 MG in sodium chloride 0.9% (plus) 50 ML 100 MG IV (20:51)
[2023-01-16] VITALS: BP 115/73; PULSE 71; RESP 18; TEMP 36.9; O2SAT 98
[2023-01-16 04:00] VITALS: BP 122/78; PULSE 71; RESP 21; TEMP 36.8; O2SAT 99
[2023-01-16 04:59] LABS: Basophils % 0.5 %; Eosinophils # 0.4 10^3/uL (0.0-0.8); Eosinophils % 4.7 %; Hematocrit 25.6 % (42.0-52.0); Lymphocytes # 1.3 10^3/uL (0.8-4.8); Lymphocytes % 17.9 %; Mean Corpuscular HGB Conc 31.3 g/dL (30.0-36.0); Mean Corpuscular Hemoglobin 25.8 pg (28.0-34.0); Mean Corpuscular Volume 82.6 fl (80-94); Mean Platelet Volume 11.3 fL (7.4-10.4); Monocytes # 1.2 10^3/uL (0.2-0.9); Monocytes % 15.7 %; Neutrophils # 4.54 10^3/uL (1.8-7.7); Neutrophils % 60.5 %; Nucleated Red Blood Cells % 0 %; Platelet Count 206 10^3/cmm (130-400); Red Cell Distribution Width 19.8 % (12.1-15.1); White Blood Count 7.5 10^3/uL (4.0-10.0)
[2023-01-16 05:18] LABS: Alanine Aminotransferase 78 U/L (0-41); Albumin Level 3.2 g/dL (3.5-5.2); Alkaline Phosphatase 87 U/L (40-130); Anion Gap 15.8 (5-19); Aspartate Amino Transferase 126 U/L (0-40); Blood Urea Nitrogen 21 mg/dL (8-23); Calcium 8.8 mg/dL (8.5-10.5); Carbon Dioxide 22 mmol/L (22-29); Chloride 96 mmol/L (98-107); Globulin 2.6 g/dL (1.3-4.6); Glomerular Filtration Rate 134.4 mL/min (90-130); Glucose 88 mg/dL (65-115); Osmolality Calculated 272 mOsm/kg (285-295); Potassium 3.8 mmol/L (3.5-5.1); Sodium 130 mmol/L (136-145); Total Bilirubin 0.6 mg/dL (0.15-1.2); Total Protein 5.8 g/dL (6.6-8.7)
[2023-01-16 05:32] LABS: Creatine Phosphokinase 2318 U/L (39-308)
[2023-01-16 06:00] VITALS: PULSE 58
[2023-01-16 08:00] VITALS: BP 126/77; PULSE 72; RESP 18; TEMP 36.6; O2SAT 97
--- NOTE | 2023-01-16 09:46 | P.PN_ITS ---
Subjective Subjective: no new complaints Medications: Reviewed: Yes Vitals/I&O/Wt Last Vital Signs Temp 97.8 F 01/16/23 08:00 Pulse 72 01/16/23 08:00 Resp 18 01/16/23 08:00 BP 126/77 01/16/23 08:00 Pulse Ox 97 01/16/23 08:00 O2 Del Method Room Air 01/16/23 08:00 01/15/23 01/16/23 01/16/23 22:59 06:59 14:59 Intake Total 290 / 1010 400 / 1410 480 / 480 Output Total 750 / 3200 500 / 3700 Balance -460 / -2190 -100 / -2290 480 / 480 Weight last 48 hrs Weight 101.786 kg Weight 99.473 kg Physical Exam Urinary Catheter Management: Lenz: Cath Placed During This Visit: yes Reason for Continuing Indwelling Catheter: Other Urinary Catheter Date of Insertion: 01/10/23 Urinary Catheter Time of Insertion: 21:30 Data 01/16/23 04:45 01/16/23 04:45 A&P Assessment and plan (1) Rhabdomyolysis: Plan 1. Rhabdomyolysis,improved 2. Hyperkalemia, resolved 3. Metabolic acidosis, high AG, resolved 4. Acute kidney injury, urine output improved, Cr better 5. Hyponatremia. Chronic, improved, c/w fluid restriction and urea tabs , s/p IV albumin Attestations Medical Necessity Statement*: per medicine Coding Level of Care Code Acute Code for [facility] Diagnoses Rhabdomyolysis M62.82
[2023-01-16] MEDS: tamsulosin 0.4 mg Capsule PO (10:22)
[2023-01-16] MEDS: aspirin 81 mg Chew Tablet PO (10:22)
[2023-01-16] MEDS: thiamine 100 mg Tablet PO (10:22)
[2023-01-16] MEDS: folic acid 1 mg Tablet PO (10:22)
[2023-01-16] MEDS: urea 15 gm Powder 10 GM PO (10:23)
[2023-01-16] MEDS: multivitamin therapeutic Tablet 1 TAB PO (10:23)
[2023-01-16] MEDS: pantoprazole DR 40 mg Tablet 20 MG PO (10:23)
[2023-01-16] MEDS: metoprolol tartrate 25 mg Tablet PO (10:24)
[2023-01-16 12:00] VITALS: BP 115/71; PULSE 71; RESP 18; TEMP 36.6; O2SAT 94
[2023-01-16 12:22] LABS: SARS Covid-2 Antigen negative (Negative)
--- NOTE | 2023-01-16 16:56 | P.DS_ITS ---
Discharge Providers Date of Admission: 01/10/23 18:38 Date of Discharge: January 16, 2023 Attending Provider at Admission: Fabienne Hernandez MD Attending Provider at Discharge: Huan Camargo Primary Care Provider: Luciano Maya MD Diagnoses at Discharge Discharge Diagnosis (1) Rhabdomyolysis: Status: Acute Reason for Visit Reason for Visit: FALL-PROLONGED DOWN TIME Hospital Course Hospital Course Pleasant 67-year-old gentleman with history of alcohol abuse, anemia, stroke, hypertension, was admitted for assessment management after a fall at home after he tripped in the bathroom, falling down, hitting his head on the toilet rim. Did not lose consciousness, but could not get up. Had a beer the night prior to fall, but otherwise believes it was purely mechanical fall. Lives home alone, was found by his friend, brought to the hospital. They are found to have traumatic rhabdomyolysis, dehydration, initial CK up to 12,000, as high as 30,000, however, received IV fluid hydration, statin was held. Also with chronic hyponatremia, with noted worsening of hyponatremia, sodium down to 121, received sodium chloride infusion, including temporarily hypertonic saline, subsequently switched over to urea with recommendation of additional 2 weeks of therapy. Sodium gradually improved up to low 130s. Rhabdomyolysis gradually resolving, CK currently down to as low as 2000s. He has been quite deconditioned and generally weak, requiring significant assistance, and needing rehabilitation prior to going home. Did require Lasix due to fluid overload on 01/15 after treatment for rhabdomyolysis. Diuresed well, and negative balance, with resolution of any respiratory difficulty. Saturating well on room air, subjectively feels much better and ready to progress to rehabilitation. Statin for now held, please reassess recovery from rhabdomyolysis, consider trial of restarting once he recovers. Additionally noted chronic L2 fracture, and on CT assessment noted degenerative changes of the lower spine with moderate spinal canal and severe bilateral foraminal narrowing in L5-S1, mild spinal canal narrowing and disc bulges L3-4 and L4-5. Please follow-up with him, additionally with arrangements for further assessment for osteopenia/osteoporosis. Osteopenia apparent on x-ray of thoracic spine, degenerative changes, findings of possible ankylosing spondylitis. Consider follow-up with rheumatology. Transient hyperkalemia in the hospital resolved. CASSIE inhibitor has been on hold. For now not restarted. Potassium supplement not restarted. Please follow-up chemistry. 2 hospitalization also noted low-grade temp of 100.3, UA with possible urinary tract infection, 10-15 WBC. Started on third-generation cephalosporin will complete course with 10 more days with cefdinir. Lenz catheter removed prior to discharge. Per family reports he has been having issues with his urinary stream which he reluctantly admits. He is started on tamsulosin. Please follow-up with additional assessment of prostate. He is referred to podiatry for help with management of his toenails. Encourage abstinence from alcohol. Physical Exam Narrative: Awake, alert, in good spirits, asks if he can go ahead and transfer to SNF for rehabilitation. Const: GENERAL APPEARANCE: cooperative ORIENTATION/CONSCIOUSNESS: Yes awake Neck/C-Spine: COMMON NORMALS: no JVD Resp: COMMON NORMALS: normal respiratory effort and clear to auscultation bilaterally AUSCULTATION: clear to auscultation bilaterally Cardio: COMMON NORMALS: no JVD, regular rhythm, S1 normal heart sound present, S2 normal heart sound present and No murmurs present (Cardio) RHYTHM: regular rhythm HEART SOUNDS: S1 normal heart sound present and S2 normal heart sound present GI: COMMON NORMALS: Normal to inspection, nondistended, normoactive bowel sounds present, Soft to palpation and non-tender PALPATION: Yes Soft to palpation Extremity: COMMON NORMALS: no joint enlargement and no pedal edema Urinary Catheter Management: Lenz: Cath Placed During This Visit: yes, but has since been removed by the nurse Reason for Continuing Indwelling Catheter: Decision to DC Catheter Urinary Catheter Date of Insertion: 01/10/23 Urinary Catheter Time of Insertion: 21:30 Date Urinary Catheter Removed: 01/16/23 Time Urinary Catheter Discontinued: 13:25 Discharge Data Studies Completed and Pending Completed Studies During Hospitalization Category Date Time Status CT abdomen pelvis w con* [id number] Stat Cat Scan 01/10/23 18:[address] facial bones wo con* [id number] Stat Cat Scan 01/10/23 16:[address] head wo con* [id number] Stat Cat Scan 01/10/23 16:[address] lumbar spine wo con* [id number] Routine Cat Scan 01/15/23 15:22 Completed CXRP [XR chest 1V portable [id number]] Routine Exams 01/13/23 21:04 Completed CXRP [XR chest 1V portable [id number]] Routine Exams 01/15/23 09:59 Completed XR cervical spine 3V* [id number] Routine Exams 01/15/23 15:22 Completed XR chest 1V portable [id number] Stat Exams 01/10/23 16:51 Completed XR hip RT 2-3V wo/w pel* [id number] Stat Exams 01/10/23 17:03 Completed XR thoracic spine 3V* [id number] Routine Exams 01/15/23 15:22 Completed Pending at discharge Category Date Time Status CK [Creatine Phosphokinase] AM LABS Lab 01/17/23 04:00 Ordered CK [Creatine Phosphokinase] AM LABS Lab 01/18/23 04:00 Ordered Complete Blood Count w/Auto AM LABS Lab 01/17/23 04:00 Ordered Comprehensive Metabolic Panel AM LABS Lab 01/17/23 04:00 Ordered Radiology Impressions Face CT 01/10/23 16:51 IMPRESSION: Right and right periorbital soft tissue hematoma. No for acute fracture. Head CT 01/10/23 16:51 IMPRESSION: 1. There is right frontal and right periorbital soft tissue hematoma. No evidence for acute intracranial injury. 2. There are senescent changes of the brain as described above. No evidence for large acute ischemic infarction or acute intracranial injury. Hip/Pelvis X-Ray 01/10/23 17:03 IMPRESSION: No evidence for acute fracture. Abdomen/Pelvis CT 01/10/23 18:12 IMPRESSION: 1. Subtle hazy stranding in the right upper quadrant omentum may represent small vessel injury or a nonspecific mesenteritis. 2. Chronic severe compression fracture of the L2 vertebra and chronic appearing fracture through the lateral aspect of the left 11th rib. No acute fractures seen. Chest X-Ray 01/15/23 09:59 IMPRESSION: 1. Cardiac enlargement with pulmonary vascular congestion and bibasal pleural effusions suggesting CHF. Cervical Spine X-Ray 01/15/23 15:22 IMPRESSION: 1. Moderate degenerative changes. 2. No fracture or malalignment. Lumbar Spine CT 01/15/23 15:22 IMPRESSION: 1. L2 vertebral body compression fracture with mild retropulsion of bony fragments and a broad-based disc bulge resulting in mild L1-L2 spinal canal narrowing. 2. L3-L4 broad-based disc bulge with mild spinal canal and bilateral foraminal narrowing. 3. L4-L5 broad-based disc bulge with mild spinal canal narrowing. 4. L5/S1 broad-based disc bulge with moderate spinal canal and severe bilateral foraminal narrowing. 5. Perinephric edema bilaterally likely reflecting renal insufficiency. Thoracic Spine X-Ray 01/15/23 15:22 IMPRESSION: 1. No fracture or malalignment. 2. Osteopenia, degenerative changes and findings at suggest ankylosing spondylitis. Laboratory Results WBC 7.5 10^3/uL (4.0-10.0) 01/16/23 04:45 RBC 3.10 10^6/uL (4.1-5.3) L 01/16/23 04:45 Hgb 8.0 g/dL (11.7-16.6) L 01/16/23 04:45 Hct 25.6 % (42.0-52.0) L 01/16/23 04:45 MCV 82.6 fl (80-94) 01/16/23 04:45 MCH 25.8 pg (28.0-34.0) L 01/16/23 04:45 MCHC 31.3 g/dL (30.0-36.0) 01/16/23 04:45 RDW 19.8 % (12.1-15.1) H 01/16/23 04:45 Plt Count 206 10^3/cmm (130-400) 01/16/23 04:45 MPV 11.3 fL (7.4-10.4) H 01/16/23 04:45 Neut % (Auto) 60.5 % 01/16/23 04:45 Lymph % (Auto) 17.9 % 01/16/23 04:45 [place] % (Auto) 15.7 % 01/16/23 04:45 Eos % (Auto) 4.7 % 01/16/23 04:45 Baso % (Auto) 0.5 % 01/16/23 04:45 Neut # (Auto) 4.54 10^3/uL (1.8-7.7) 01/16/23 04:45 Lymph # (Auto) 1.3 10^3/uL (0.8-4.8) 01/16/23 04:45 [place] # (Auto) 1.2 10^3/uL (0.2-0.9) H 01/16/23 04:45 Eos # (Auto) 0.4 10^3/uL (0.0-0.8) 01/16/23 04:45 Baso # (Auto) 0.0 10^3/uL (0.0-0.1) 01/16/23 04:45 Nucleated RBC % (auto) 0 % 01/16/23 04:45 Nucleated RBCs # 0.0 /100WBC 01/16/23 04:45 Specimen Type Venous 01/10/23 22:01 Sample Site Not specified 01/10/23 22:01 Damien Test N/a 01/10/23 22:01 VBG pH 7.33 (7.32-7.42) 01/10/23 22:01 VBG pCO2 29.1 mmHg (41-51) L 01/10/23 22:01 VBG pO2 32.0 mmHg (25-40) 01/10/23 22:01 VBG HCO3 15.4 mmol/L (24-28) L 01/10/23 22:01 VBG Base Excess -9.1 mmol/L (-3.0-3.0) L 01/10/23 22:01 VBG Hematocrit 41.9 % (42-52) L 01/10/23 22:01 O2 Delivery Device Nc 01/10/23 22:01 Polysomnographic Technologist ID [place] 01/10/23 22:01 Sodium 130 mmol/L (136-145) L 01/16/23 04:45 Potassium 3.8 mmol/L (3.5-5.1) 01/16/23 04:45 Chloride 96 mmol/L (98-107) L 01/16/23 04:45 Carbon Dioxide 22 mmol/L (22-29) 01/16/23 04:45 Anion Gap 15.8 (5-19) 01/16/23 04:45 BUN 21 mg/dL (8-23) 01/16/23 04:45 Creatinine 0.6 mg/dL (0.7-1.2) L 01/16/23 04:45 GFR Calculation 134.4 mL/min (90-130) H 01/16/23 04:45 Glucose 88 mg/dL (65-115) 01/16/23 04:45 Serum Osmolality 259 mOsm/kg (278-305) L 01/11/23 04:17 Calculated Osmolality 272 mOsm/kg (285-295) L 01/16/23 04:45 Lactic Acid 2.8 mmol/L (0.5-2.2) H 01/11/23 16:06 Lactic Acid (Sepsis) 3.4 mmol/L (0.5-2.2) H 01/11/23 18:22 Lactate 1.9 mmol/L (0.5-2.2) 01/14/23 03:36 Calcium 8.8 mg/dL (8.5-10.5) 01/16/23 04:45 Phosphorus 3.1 mg/dL (2.5-4.5) 01/14/23 03:36 Magnesium 2.3 mg/dL (1.7-2.3) 01/14/23 03:36 Total Bilirubin 0.6 mg/dL (0.15-1.2) 01/16/23 04:45 AST 126 U/L (0-40) H 01/16/23 04:45 ALT 78 U/L (0-41) H 01/16/23 04:45 Alkaline Phosphatase 87 U/L (40-130) 01/16/23 04:45 Creatine Kinase 2318 U/L (39-308) H* 01/16/23 04:45 Total Protein 5.8 g/dL (6.6-8.7) L 01/16/23 04:45 Albumin 3.2 g/dL (3.5-5.2) L 01/16/23 04:45 Globulin 2.6 g/dL (1.3-4.6) 01/16/23 04:45 Urine Color Dark yellow (Yellow) 01/13/23 09:50 Urine Appearance Sl cloudy (CLEAR) A 01/13/23 09:50 Urine pH 5 (5-7) 01/13/23 09:50 Ur Specific [place] 1.020 (1.005-1.030) 01/13/23 09:50 Urine Protein Neg (Negative) 01/13/23 09:50 Urine Glucose (UA) Norm (Normal) 01/13/23 09:50 Urine Ketones Negative (Negative) 01/13/23 09:50 Urine Blood 3+ (Negative) H 01/13/23 09:50 Urine Nitrate Negative (Negative) 01/13/23 09:50 Urine Bilirubin Neg (Negative) 01/13/23 09:50 Urine Urobilinogen 1 mg/dL (Negative) H 01/13/23 09:50 Ur Leukocyte Esterase Trace (Negative) H 01/13/23 09:50 Urine RBC Rare /hpf (0-2) 01/13/23 09:50 Urine WBC 10-15 /hpf (0-5) H 01/13/23 09:50 Ur Squamous Epith Cells Rare /hpf (0-5) 01/13/23 09:50 Amorphous Sediment Not Reportable 01/13/23 09:50 Urine Bacteria 1+ /hpf (NONE) H 01/13/23 09:50 Urine Osmolality 300 mOsm/kg (50-1200) 01/10/23 00:35 Ur Random Sodium 16 mmol/L 01/10/23 00:35 Ethyl Alcohol 50 mg/dL (0-10) H 01/10/23 17:36 Hepatitis A IgM Ab Non-reactive (Nonreactive) 01/12/23 09:30 Hep Bs Antigen Non-reactive (Nonreactive) 01/12/23 09:30 Hep B Core IgM Ab Non-reactive (Nonreactive) 01/12/23 09:30 Hepatitis C Antibody Non-reactive (Nonreactive) 01/12/23 09:30 SARS-CoV-2 Ag (Rapid) negative (Negative) 01/16/23 11:45 Vitals Last Vital Signs Temp 98 F 01/16/23 12:00 Pulse 71 01/16/23 12:00 Resp 18 01/16/23 12:00 BP 115/71 01/16/23 12:00 Pulse Ox 94 01/16/23 12:00 O2 Del Method Room Air 01/16/23 12:00 Discharge Plan Discharge Patient Disposition: Xfer SNF Condition: Stable Prescriptions: New tamsulosin 0.4 mg Capsule 0.4 mg PO DAILY Qty: 90 0RF Vitamin B-1 (mononitrate) 100 mg Tablet 100 mg PO DAILY Qty: 90 0RF cefdinir 300 mg capsule 300 mg PO BID 10 Days Qty: 20 0RF Ure-Na 15 gram Powder In Packet 10 g PO DAILY 14 Days Qty: 14 0RF Continued metoprolol tartrate 25 mg tablet 25 mg PO BID pantoprazole 20 mg tablet,delayed release (DR/EC) 20 mg PO BID clotrimazole [Antifungal (clotrimazole)] 1 % cream 1 applic topical BID 28 Days Qty: 90 2RF nystatin 100,000 unit/gram powder 1 applic topical DAILY Qty: 60 2RF aspirin 81 mg Tablet,Chewable 81 mg PO DAILY furosemide [Lasix] 20 mg Tablet 20 mg PO DAILY PRN (Reason: Edema) vitamin B complex Capsule 1 cap PO DAILY folic acid 1 mg Tablet 1 mg PO DAILY Discontinued atorvastatin 20 mg tablet 20 mg PO DAILY lisinopril 10 mg tablet 10 mg PO DAILY potassium chloride 20 mEq Tablet Extended Release 20 meq PO DAILY No Action (DME) CAM Boot See Rx Instructions .Route .MEDSUPPLY Qty: 1 0RF Rx Instructions: As directed Discharge Orders: Discharge Order (Routine); Ordered 01/16/23 Ordered By: Huan Camargo Referrals: [facility] [Provider Group] - 2 weeks ([place]) [facility] [Provider Group] - 2 weeks (Urinary complaints) Loza,FREDDIE Newell [Referring] - 4-7 days Discharge Diet: As Directed Discharge Activity: Limit activity as instructed and As per PT/OT instructions Patient Instructions: Hyponatremia (GEN), Rhabdomyolysis (GEN), Fall Prevention (GEN) Activity Restrictions/Additional Instructions: Continue to work with physical therapy. Avoid falls. Hold atorvastatin for now, please have your primary provider reassess recovery after rhabdomyolysis, consider restarting atorvastatin once recovered. Hold lisinopril for now, please have your primary doctor reassess kidney function, reassess blood pressure, to make determination whether and when this medication needs to be restarted. Hold further potassium supplementation for now. Continue urea for additional 2 weeks (for your sodium level). Please have your primary doctor recheck your blood chemistry, including follow- up sodium level, kidney function, potassium. Please abstain from alcohol consumption including beer. Follow-up with your primary doctor regarding anemia. Please have your primary doctor follow-up regarding recovery from urinary tract infection. Follow-up with your primary doctor and urology regarding urinary difficulty, weak stream and further assessment of your prostate. Discharge Attestations Time Spent in Discharge Care*: greater than 30 min Status at Discharge: Cognitive status at discharge: cognitively intact , Behavioral status at discharge: cooperative , Quality Metrics Clinical Quality Measures [ No reported AMI, CVA or VTE this stay] Coding Level of Care Code Acute Code for Chg Fwd Diagnoses Rhabdomyolysis M62.82
[2023-01-16 19:00] VITALS: BP 115/71; PULSE 71; RESP 18; TEMP 36.6; O2SAT 94
== END 2023-01-16 17:30 | disposition skilled nursing facility (03) | DRG 564 ==
LOC: ER 18:56 → ICU 19:32 → MEDSURG 01-12 15:46
PROVIDERS: Emergency Medicine; Family Medicine; Hospitalist; Internal Medicine; Admitting Provider Internal Medicine; Emergency Provider Emergency Medicine; PCP Family Medicine; Visit Provider Internal Medicine
DX: T79.6XXA Traumatic ischemia of muscle, initial encounter (principal); G93.41 Metabolic encephalopathy; E87.1 Hypo-osmolality and hyponatremia; F10.139 Alcohol abuse with withdrawal, unspecified; N39.0 Urinary tract infection, site not specified; E87.20 Acidosis, unspecified; N17.9 Acute kidney failure, unspecified; M84.48XA Pathological fracture, other site, initial encounter for fracture; M48.56XA Collapsed vertebra, not elsewhere classified, lumbar region, initial encounter for fracture; W01.198A Fall on same level from slipping, tripping and stumbling with subsequent striking against other object, initial encounter; Y92.012 Bathroom of single-family (private) house as the place of occurrence of the external cause; E87.70 Fluid overload, unspecified; Z86.73 Personal history of transient ischemic attack (TIA), and cerebral infarction without residual deficits; I10 Essential (primary) hypertension; D50.8 Other iron deficiency anemias; E86.0 Dehydration; Z79.82 Long term (current) use of aspirin; R31.9 Hematuria, unspecified; E87.5 Hyperkalemia; E83.42 Hypomagnesemia
CPT/HCPCS: 12345; 36415; 51702; 70450; 70486; 71045; 72040; 72072; 72131; 73502; 74177; 80048; 80053; 80074; 80307; 80503; 81001; 82550; 82803; 83605; 83735; 83930; 83935; 84100; 84300; 85025; 87426; 93005; 96372; 96376; 97110; 97161; 97165; 97530; 97535; 99285; J0612; J0696; J1650; J1815; J1940; J3411; J3475; J7030; J7070; J7120; J7131; P9046; Q3014; Q9967

== ENCOUNTER 2023-01-23 09:05 | Outpatient (CLI) | payer OTHER, SELFPAY ==
[2023-01-23 09:21] LABS: Basophils # 0.1 10^3/uL (0.0-0.1); Basophils % 0.8 %; Eosinophils # 0.3 10^3/uL (0.0-0.8); Eosinophils % 4.3 %; Hematocrit 23.8 % (42.0-52.0); Hemoglobin 7.8 g/dL (11.7-16.6); Lymphocytes # 1.1 10^3/uL (0.8-4.8); Mean Corpuscular HGB Conc 32.8 g/dL (30.0-36.0); Mean Corpuscular Hemoglobin 28.7 pg (28.0-34.0); Mean Corpuscular Volume 87.5 fl (80-94); Mean Platelet Volume 10.8 fL (7.4-10.4); Monocytes # 0.7 10^3/uL (0.2-0.9); Neutrophils # 3.89 10^3/uL (1.8-7.7); Neutrophils % 64.1 %; Nucleated Red Blood Cells % 0 %; Platelet Count 359 10^3/cmm (130-400); Red Blood Count 2.72 10^6/uL (4.1-5.3); Red Cell Distribution Width 20.5 % (12.1-15.1); White Blood Count 6.1 10^3/uL (4.0-10.0)
[2023-01-23 09:53] LABS: Slide Review Slide Review Perform
== END 2023-01-23 09:06 | disposition home or self-care (01) ==
PROVIDERS: PCP Family Medicine; Visit Provider Family Medicine
DX: Z01.89 Encounter for other specified special examinations (principal)
CPT/HCPCS: 85025

== ENCOUNTER → 2023-01-26 08:34 | Outpatient (BNVA) | payer OTHER, SELFPAY | PROVIDERS: PCP Family Medicine; Visit Provider Podiatrist Foot & Ankle Surgery | DX: I73.9 Peripheral vascular disease, unspecified (principal); B35.1 Tinea unguium; L84 Corns and callosities; R60.0 Localized edema; G62.9 Polyneuropathy, unspecified | CPT/HCPCS: 11055; 11721; 99204 ==

== ENCOUNTER → 2023-04-06 09:17 | Outpatient (BNVA) | payer OTHER, SELFPAY | PROVIDERS: PCP Family Medicine; Visit Provider Podiatrist Foot & Ankle Surgery | DX: B35.1 Tinea unguium (principal); L84 Corns and callosities; R60.0 Localized edema; I73.9 Peripheral vascular disease, unspecified; G62.9 Polyneuropathy, unspecified | CPT/HCPCS: 11721 ==

== ENCOUNTER → 2023-06-15 12:51 | Outpatient (BNVA) | payer OTHER, SELFPAY | PROVIDERS: PCP Family Medicine; Visit Provider Podiatrist Foot & Ankle Surgery | DX: L60.8 Other nail disorders (principal); B35.1 Tinea unguium; L84 Corns and callosities; R60.0 Localized edema; I73.9 Peripheral vascular disease, unspecified; G62.9 Polyneuropathy, unspecified | CPT/HCPCS: 11721 ==

== ENCOUNTER 2023-06-15 14:56 | Emergency (ER) | payer MEDICARE, BC, OTHER, SELFPAY ==
[2023-06-15 15:00] VITALS: RESP 14; TEMP 36.6; O2SAT 85; BMI 32.1
--- NOTE | 2023-06-15 16:34 | PM.CCN ---
Critical Care Event Note Omid El contacted for medical control, reported a 67-year-old male who had choked on a piece of steak at a local restaurant then able to clear the airway and they reported that he was intubated but they were not able to achieve ROSC. I asked them to transport patient. On arrival here CPR was in progress. When I came in the room noted his sats were in the 70s using fiberoptic scope evaluated the posterior pharynx. Noted the bulb of the ET tube above the cords. Patient reintubated. After reintubation there was some bloody sputum noted in the tube and food debris was noted to be caught in the end-tidal CO2 detector. We did get color change on the end-tidal CO2 detector. Continued ACLS efforts. We had stopped code because of failure to respond and patient spontaneously had electrical activity and a palpable pulse patient was reintubated given atropine and epi pulse deteriorated back to asystole and then to pulseless electrical activity briefly and then once again to asystole. Resuscitative efforts were ultimately stopped confirmed lack of cardiac activity with bedside ultrasound. Patient was briefly in PEA there was no associated cardiac to be an ultrasound then deteriorated to asystole. Given the length of downtime and failure to respond to ACLS protocols all resuscitative efforts were stopped. There is no family available at this time discussed with friends that he was eating with at the time that he began choking they are assisting in staff and tracking down near his next of kin. Critical Care Time Code activated: Yes Critical Care Time (min): 45 Additional information about critical care time: The high probability of a clinically significant, sudden or life threatening deterioration of the patient's cardiovascular respiratory system(s) required my full and direct attention, intervention and personal management. The critical care time is as shown. This time is in addition to time spent performing any reported procedures but includes the following: [x] Data and vital sign review and interpretation [x] Patient assessment, examination and intervention [x] Documentation [x] Medication orders and management Procedures Intubation Sedative: none Laryngoscope: fiber optic video scope Assist device used: fiber optic device ET tube size: 8 ET tube uncuffed: No Tube secured depth (cm): 24 Tube secured location: teeth Tube placement confirmation: visualized tube passing through cords, equal breath sounds bilaterally, no breath sounds over epigastrium and color change noted Patient tolerated procedure: well Intubation complications: none Additional comments: See notes. Coding Level of Care Code Critical Care Other Coding Information Procedural care (documented in this note) Time Spent (min) 45
--- NOTE | 2023-06-15 17:20 | PC.NURSE ---
pt arrived to room 11 via [facility]. CPR in progress @1455. per EMS pt received x4 epi, bilateral IO tibia, asystole for approx 32 minutes. @1457: 18G right hand & left hand placed by OZH @1457: pulse check, no pulse, compressions resumed @1457: x1 epi given @1459: pulse check, no pulse, compressions resumed @1459: x1 epi given @1501: pulse check, no pulse, compressions resumed @1501: x1 bicarb given @1503: pulse check, no pulse, compressions resumed @1505: pulse check, no pulse, compressions resumed @1505: intubated 8.0 24 at the lip @1507: pulse check, asystole @1507: pulse check, faint pulse @1510: 1L fluids, atropine 1g, x1 epi given @1511: cpr resumed @1513: pulse check, no pulse, compressions resumed @1513: x1 bicarb, x1 epi @1517: pulse check, no pulse, compressions resumed @1517: x1 atropine, x1 epi @1519: pulse check, no pulse, TOD called 1519 *pt did have watch noted to L wrist, OZH did not remove prior to peoplesoft hr developer arriving* *peoplesoft hr developer took watch*
== END 2023-06-15 18:15 | disposition expired ==
PROVIDERS: Emergency Provider Family Medicine; PCP Family Medicine
DX: T17.928A Food in respiratory tract, part unspecified causing other injury, initial encounter (principal); W44.F3XA Food entering into or through a natural orifice, initial encounter
CPT/HCPCS: 31500; 99291